=== PATIENT | male | born 1970 | race Caucasian/White ===

== ENCOUNTER 2017-11-15 12:42 | Emergency (ER) | payer BC ==
[2017-11-15 13:07] VITALS: BP 143/73; PULSE 82; RESP 18; TEMP 96.6
[2017-11-15] MEDS ORDERED: DIPH,PERTUS(ACELL)TETVAC-LF 0.5 ML VIAL IM ONE (13:10)
--- NOTE | 2017-11-15 13:23 | ED ---
General Adult HPI - General Chief complaint: Wound/Laceration Stated complaint: Thumb Lac/Injury Time Seen by Provider: 11/15/17 13:07 Source: patient, RN notes reviewed Mode of arrival: ambulatory Limitations: no limitations - History of Present Illness Initial comments: 47-year-old male presents to the emergency department with a chief complaint of right thumb injury. He got his finger caught in a wood splitter. He believes his tetanus was possibly greater than 5 years ago he is unsure of the exact time. He states that he did not lose consciousness and there is no other injuries with this. He denies any nausea or vomiting associated with this. He denies any fever or chills. He states that he is having some coolness to that digit. There is been no other symptoms and the patient at this time. He denies any injury to thumb in the past. Patient denies any recent fever, chills , shortness of breath, chest pain, back pain, abdominal pain, nausea vomiting, numbness or tingling, dysuria or hematuria, constipation or diarrhea, headaches or visual changes, or any other current symptoms. - Related Data Home Medications Medication Instructions Recorded Confirmed Ibuprofen [Advil] 400 mg PO Q6HR PRN 10/31/15 08/03/16 Previous Rx's Medication Instructions Recorded Hydrocodone/Acetaminophen [[place] 1 each PO Q6HR PRN #10 tab 08/04/16 5-325] Sulfamethoxazole/Trimethoprim 1 each PO Q12H 14 Days tab 08/04/16 [Bactrim DS 800-160 mg] Allergies Allergy/AdvReac Type Severity Reaction Status Date / Time No Known Allergies Allergy Verified 08/03/16 23:35 Review of Systems ROS Statement: Those systems with pertinent positive or pertinent negative responses have been documented in the HPI. ROS Other: All systems not noted in ROS Statement are negative. Past Medical History Past Medical History: No Reported History Additional Past Medical History / Comment(s): CONSTIPATION. UMBILICAL HERNIA. History of Any Multi-Drug Resistant Organisms: None Reported Additional Past Surgical History / Comment(s): FACIAL SURGERY D/T ACCIDENT. EXC WISDOM TEETH. right arm Past Anesthesia/Blood Transfusion Reactions: No Reported Reaction Past Psychological History: No Psychological Hx Reported Smoking Status: Current every day smoker Past Alcohol Use History: None Reported Past Drug Use History: None Reported - Past Family History Mother Family Medical History: No Reported History General Exam - General Exam Comments Initial Comments: General: The patient is awake and alert, in no distress, and does not appear acutely ill. Neck: The neck is supple, there is no tenderness. Cardiovascular: There is a regular rate and rhythm. No murmur, rub or gallop is appreciated. Respiratory: Lungs are clear to auscultation, respirations are non-labored, breath sounds are equal. No wheezes, stridor, rales, or rhonchi. Musculoskeletal: Sensation intact with 2+ pulses throughout the right upper extremity. Fund motion of the right wrist. Frontal motion of digits 2 through 5. Patient does have pain with range of motion of digit 1 with what appears to be a laceration to the palmar aspect. Sensation is intact. The digit is warm to touch. Neurological: CN II-XII intact, There are no obvious motor or sensory deficits. Coordination appears grossly intact. Speech is normal. Skin: Skin is warm and dry and no rashes or lesions are noted. Psychiatric: Normal mood and affect. Limitations: no limitations Course Vital Signs 11/15/17 13:01 Temperature 96.6 F L Pulse Rate 82 Respiratory 18 Rate Blood Pressure 143/73 O2 Sat by Pulse 97 Oximetry Medical Decision Making - Medical Decision Making 47-year-old male presents for a injury to the right thumb due to a long splinter. At this time patient does appear to have right thumb abrasion however there is no deep laceration needing stitches. This time x-rays reviewed and negative as well. This time we discussed Motrin Tylenol ice. We discussed return for hours follow-up and all care. Patient stated she understood and she is agreement with this plan. All questions have been answered. She will be discharged. - Radiology Data Radiology results: report reviewed, image reviewed Disposition Clinical Impression: Abrasion of right thumb, Contusion of right thumb Disposition: HOME SELF-CARE Condition: Stable Instructions: Abrasion (ED), Contusion in Adults (ED) Additional Instructions: Please use medication as discussed. Please follow up with family doctor if symptoms have not improved over the next two days. Please return to the emergency room if your symptoms increase or worsen or for any other concerns. Referrals: Abdullahi Douglass MD [Primary Care Provider] - 1-2 days Time of Disposition: 13:46
--- NOTE | 2017-11-15 13:34 | XR ---
EXAMINATION TYPE: XR finger RT , 3 VIEWS DATE OF EXAM ORDERED: 11/15/2017 HISTORY: Pain following trauma. COMPARISON: None. FINDINGS: No fracture, dislocation or other acute osseous lesion is seen. IMPRESSION: NO ACUTE OSSEOUS LESION.
== END 2017-11-15 13:49 | disposition home or self-care (01) ==
LOC: EC 12:42
DX: S60.011A Contusion of right thumb without damage to nail, initial encounter (principal); Z23 Encounter for immunization; F17.200 Nicotine dependence, unspecified, uncomplicated; W45.8XXA Other foreign body or object entering through skin, initial encounter; Y92.009 Unspecified place in unspecified non-institutional (private) residence as the place of occurrence of the external cause
CPT/HCPCS: 90471; 90715; 99283

== ENCOUNTER 2019-01-23 20:56 | Emergency (ER) | payer BC ==
[2019-01-23] MEDS ORDERED: methylPREDNISolone SOD SUCCI 125 MG/2 ML VIAL IM ONE (21:40)
[2019-01-23] MEDS ORDERED: ALBUTEROL NEBULIZED 2.5 MG/3 ML INHALATION STA (21:40)
[2019-01-23] MEDS ORDERED: IPRATROPIUM 0.5 MG/2.5 ML NEBU INHALATION STA (21:40)
[2019-01-23] MEDS ORDERED: guaiFENesin-DM 600/30MG 1 EACH TAB.ER.12H PO STA (21:41)
--- NOTE | 2019-01-23 22:24 | XR ---
EXAM: XR Chest, 2 Views CLINICAL HISTORY: ITS.REASON XR Reason: Pain TECHNIQUE: Frontal and lateral views of the chest. COMPARISON: 11/01/15. FINDINGS: Lungs: Mild perihilar/infrahilar opacities. Pleural space: Unremarkable. No pneumothorax. Heart: Unremarkable. Mediastinum: Unremarkable. Bones/joints: No acute fracture. IMPRESSION: Mild perihilar/infrahilar opacities. Correlate clinically regarding inflammatory/infectious process.
[2019-01-23] MEDS ORDERED: AZITHROMYCIN 500 MG TAB PO STA (22:53)
--- NOTE | 2019-01-23 22:55 | ED ---
URI HPI - General Chief Complaint: Upper Respiratory Infection Stated Complaint: PHILIPPE Time Seen by Provider: 01/23/19 21:25 Source: patient Mode of arrival: ambulatory Limitations: no limitations - History of Present Illness Initial Comments: 49-year-old male patient presents to the emergency department today for evaluation of cough, nasal congestion, and shortness of breath. Patient states he's been sick for the last 2-3 days with symptoms. States that today his breathing became more labored and tight. States he has been wheezing. He doesn't to being a smoker. States he has had intermittent fevers over the last couple of days. Denies any sputum production with this cough. Denies any rash or ear pain. Patient states he did not receive influenza vaccination. Denies taking any medication for his symptoms. Patient denies any recent rash, abdominal pain, nausea, vomiting, diarrhea, constipation, back pain, numbness, tingling, dizziness, weakness, hematuria, dysuria, urinary urgency, urinary frequency, headache, visual changes, or any other complaints. - Related Data Home Medications Medication Instructions Recorded Confirmed Ibuprofen [Advil] 400 mg PO Q6HR PRN 10/31/08/03/16 Previous Rx's Medication Instructions Recorded Hydrocodone/Acetaminophen [[place] 1 each PO Q6HR PRN #10 tab 08/04/16 5-325] Sulfamethoxazole/Trimethoprim 1 each PO Q12H 14 Days tab 08/04/16 [Bactrim DS 800-160 mg] Albuterol Sulfate [Proair Hfa] 1 - 2 puff INHALATION Q6HR PRN #1 01/23/19 inhaler Azithromycin [Zithromax Z-pack] 0 mg PO DIRECTED #6 tab 01/23/19 guaiFENesin-DM 600/30MG [Mucinex 1 each PO Q12HR #10 tab.er.12h 01/23/19 Dm] predniSONE 50 mg PO DAILY #5 tablet 01/23/19 Allergies Allergy/AdvReac Type Severity Reaction Status Date / Time No Known Allergies Allergy Verified 01/23/19 21:11 Review of Systems ROS Statement: Those systems with pertinent positive or pertinent negative responses have been documented in the HPI. ROS Other: All systems not noted in ROS Statement are negative. Past Medical History Past Medical History: No Reported History Additional Past Medical History / Comment(s): CONSTIPATION. UMBILICAL HERNIA. History of Any Multi-Drug Resistant Organisms: None Reported Additional Past Surgical History / Comment(s): FACIAL SURGERY D/T ACCIDENT. EXC WISDOM TEETH. right arm Past Anesthesia/Blood Transfusion Reactions: No Reported Reaction Past Psychological History: No Psychological Hx Reported Smoking Status: Current every day smoker Past Alcohol Use History: None Reported Past Drug Use History: None Reported - Past Family History Mother Family Medical History: No Reported History General Exam Limitations: no limitations General appearance: alert, in no apparent distress, other (Physical well- developed, well-nourished adult male patient in no acute distress. Vital signs upon presentation are temperature 98.5F, pulse 86, respirations 18, blood pressure 134/94, pulse ox 98% on room air.) Eye exam: Present: normal appearance, PERRL, EOMI. Absent: scleral icterus, conjunctival injection, periorbital swelling ENT exam: Present: normal exam, normal oropharynx, mucous membranes moist Respiratory exam: Present: wheezes (Diffuse expiratory wheezing in the posterior lung ford). Absent: normal lung sounds bilaterally, respiratory distress, rales, rhonchi, stridor, accessory muscle use Cardiovascular Exam: Present: regular rate, normal rhythm, normal heart sounds. Absent: systolic murmur, diastolic murmur, rubs, gallop, clicks GI/Abdominal exam: Present: soft, normal bowel sounds. Absent: distended, tenderness, guarding, rebound, rigid Neurological exam: Present: alert, oriented X3, CN II-XII intact Psychiatric exam: Present: normal affect, normal mood Skin exam: Present: warm, dry, intact, normal color. Absent: rash Course Vital Signs 01/23/19 01/23/19 01/23/19 21:08 21:10 22:16 Temperature 98.5 F Pulse Rate 86 81 Respiratory 18 20 18 Rate Blood Pressure 134/94 O2 Sat by Pulse 98 Oximetry 01/23/19 01/23/19 01/23/19 22:31 22:41 22:53 Temperature Pulse Rate 89 90 101 H Respiratory 18 18 20 Rate Blood Pressure O2 Sat by Pulse Oximetry 01/23/19 23:28 Temperature 97.0 F L Pulse Rate 91 Respiratory 16 Rate Blood Pressure 145/81 O2 Sat by Pulse 95 Oximetry Medical Decision Making - Medical Decision Making 49-year-old male patient presents to the emergency department today for evaluation of cough, shortness of breath, nasal congestion. Physical examination did reveal diffuse expiratory wheezing in the posterior lung ford. Vital signs are normal with good oxygen saturation. Chest x-ray showed infrahilar opacities in recommended clinical correlation for inflammatory versus infectious process. Patient does report intermittent fevers and is negative for influenza so we will lean towards infectious this case. Patient will be started on azithromycin. We will give prescription for Pro Air inhaler, steroids, and Mucinex DM. He is instructed to follow-up for recheck with his primary care physician in one to 2 days. Return parameters were discussed in detail. He verbalizes understanding and agrees with this plan. - Lab Data Lab Results 01/23/19 Range/Units 21:58 Influenza Type A RNA Not Detected (Not Detectd) Influenza Type B (PCR) Not Detected (Not Detectd) - Radiology Data Radiology results: report reviewed, image reviewed Two-view x-ray of the chest is obtained. Report was reviewed in its entirety. Impression by Dr. Borja shows mild perihilar/infrahilar opacities. Correlate clinically regarding inflammatory versus infectious process. Disposition Clinical Impression: Pneumonia, Acute bronchitis Disposition: HOME SELF-CARE Condition: Good Instructions (If sedation given, give patient instructions): Acute Bronchitis (ED), Pneumonia (ED) Additional Instructions: Take medications as directed. Complete and about a prescription and full. Return to the emergency department immediately for any new, worsening, or concerning symptoms. Prescriptions: guaiFENesin-DM 600/30MG [Mucinex Dm] 1 each PO Q12HR #10 tab.er.12h predniSONE 50 mg PO DAILY #5 tablet Albuterol Sulfate [Proair Hfa] 1 - 2 puff INHALATION Q6HR PRN #1 inhaler PRN Reason: Shortness Of Breath Azithromycin [Zithromax Z-pack] 0 mg PO DIRECTED #6 tab Is patient prescribed a controlled substance at d/c from ED?: No Referrals: Abdullahi Douglass MD [Primary Care Provider] - 1-2 days Time of Disposition: 22:55
[2019-01-23 23:29] VITALS: BP 145/81; PULSE 91; RESP 16; TEMP 97
== END 2019-01-23 23:33 | disposition home or self-care (01) ==
LOC: EC 20:56
DX: J18.9 Pneumonia, unspecified organism (principal); J20.9 Acute bronchitis, unspecified; F17.200 Nicotine dependence, unspecified, uncomplicated
CPT/HCPCS: 94644; 87502; 71046; 99285; 96372; J2930

== ENCOUNTER 2020-05-09 21:59 | Emergency (ER) | payer BC ==
[2020-05-09 22:05] VITALS: RESP 18
[2020-05-09] MEDS ORDERED: SODIUM CHLORIDE 0.9% 1,000 ML IV ONE (22:24)
[2020-05-09] MEDS ORDERED: MORPHINE SULFATE 4 MG/ML SYRINGE IV STA (22:24)
--- NOTE | 2020-05-09 22:32 | ED ---
General Adult HPI - General Chief complaint: Abdominal Pain Stated complaint: Abdominal pain Time Seen by Provider: 05/09/20 22:08 Source: patient, RN notes reviewed, old records reviewed Mode of arrival: ambulatory Limitations: no limitations - History of Present Illness Initial comments: 50-year-old male patient no pertinent past medical history presents ED for 2 complaining of abdominal pain. Patient reports that for the last 2 days patient has been having worsening lower quadrant abdominal pain. Patient reports his right lower quadrant suprapubic and left lower quadrant region. States that he worked all day today. The pain has been worse. Denies any nausea or vomiting. Denies chest pain shortness of breath. Denies any other complaints. Systemic: Pt denies fatigue, fever/chills, rash. Pt denies weakness, night sweats, weight loss. Neuro: Pt denies headache, visual disturbances, syncope or pre-syncope. HEENT: Pt denies ocular discharge or irritation, otalgia, rhinorrhea, pharyngitis or notable lymphadenopathy. Cardiopulmonary: Pt denies chest pain, SOB, heart palpitations, dyspnea on exertion. Abdominal/GI: Pt denies n/v/d. : Pt denies dysuria, burning w/ urination, frequency/urgency. Denies new onset urinary or bowel incontinence. MSK: Pt denies myalgia, loss of strength or function in extremities. Neuro: Pt denies new onset weakness, paresthesias. - Related Data Previous Rx's Medication Instructions Recorded Amoxicillin/Potassium Clav 1 each PO Q12HR 20 Days #20 tab 05/09/20 [Augmentin 875-125 Tablet] Allergies Allergy/AdvReac Type Severity Reaction Status Date / Time No Known Allergies Allergy Verified 05/09/20 22:40 Review of Systems ROS Statement: Those systems with pertinent positive or pertinent negative responses have been documented in the HPI. ROS Other: All systems not noted in ROS Statement are negative. Past Medical History Past Medical History: No Reported History Additional Past Medical History / Comment(s): CONSTIPATION. UMBILICAL HERNIA. History of Any Multi-Drug Resistant Organisms: None Reported Additional Past Surgical History / Comment(s): FACIAL SURGERY D/T ACCIDENT. EXC WISDOM TEETH. right arm, lipoma Past Anesthesia/Blood Transfusion Reactions: No Reported Reaction Past Psychological History: No Psychological Hx Reported Smoking Status: Current every day smoker Past Alcohol Use History: None Reported Past Drug Use History: None Reported - Past Family History Mother Family Medical History: No Reported History General Exam - General Exam Comments Initial Comments: Constitutional: NAD, AOX3, Pt has pleasant affect. HEENT: NC/AT, trachea midline, neck supple. External ears appear normal, without discharge. Mucous membranes moist. EOM intact. There is no scleral icterus. No pallor noted. Cardiopulmonary: RRR, no murmurs, rubs or gallops, no JVD noted. Lungs CTAB in anterior and posterior ford. No peripheral edema. Abdominal exam: Abdomen soft and non-distended. Abdomen moderately tender to palpation in LLQ, suprapubic, RLQ region. Bowel sounds active in LLQ. No hepatosplenomegaly. No ecchymosis Neuro: CN II-XII grossly intact. No nuchal rigidity. No raccon eyes, no alvarez sign. MSK: Full active ROM in upper and lower extremities, 5/5 stregnth. Limitations: no limitations Course Vital Signs 05/09/20 22:02 Temperature 98.6 F Pulse Rate 84 Respiratory 18 Rate Blood Pressure 132/75 O2 Sat by Pulse 97 Oximetry Medical Decision Making - Medical Decision Making 50-year-old male patient received chief complaint 2 days of lower quadrant abdominal pain. Patient also under stable, afebrile. Physical exam doesn't display suprapubic right lower quadrant and left lower quadrant abdominal pain. Patient left investigation at the display leukocytosis of 14.8. CT abdomen and pelvis doesn display sigmoid diverticulitis, uncomplicated. Patient's symptoms are improved. Tolerating oral intake. Patient initiated on Augmentin will follow-up with his primary care provider with strict return precautions. Case discussed with Dr. Lovell. - Lab Data Result diagrams: 05/09/20 22:25 05/09/20 22:25 Lab Results 05/09/20 05/09/20 05/09/20 Range/Units 22:25 22:25 22:25 WBC 14.8 H (3.8-10.6) k/uL RBC 4.38 (4.30-5.90) m/uL Hgb 13.2 (13.0-17.5) gm/dL Hct 41.4 (39.0-53.0) % MCV 94.5 (80.0-100.0) fL MCH 30.2 (25.0-35.0) pg MCHC 32.0 (31.0-37.0) g/dL RDW 13.7 (11.5-15.5) % Plt Count 256 (150-450) k/uL Neutrophils % 67 % Lymphocytes % 20 % Monocytes % 7 % Eosinophils % 5 % Basophils % 1 % Neutrophils # 9.9 H (1.3-7.7) k/uL Lymphocytes # 2.9 (1.0-4.8) k/uL Monocytes # 1.0 (0-1.0) k/uL Eosinophils # 0.7 (0-0.7) k/uL Basophils # 0.1 (0-0.2) k/uL Sodium 138 (137-145) mmol/L Potassium 4.3 (3.5-5.1) mmol/L Chloride 109 H (98-107) mmol/L Carbon Dioxide 22 (22-30) mmol/L Anion Gap 7 mmol/L BUN 12 (9-20) mg/dL Creatinine 0.61 L (0.66-1.25) mg/dL Est GFR (CKD-EPI)AfAm >90 (>60 ml/min/1.73 sqM) Est GFR (CKD-EPI)NonAf >90 (>60 ml/min/1.73 sqM) Glucose 119 H (74-99) mg/dL Plasma Lactic Acid Prabhakar 1.4 (0.7-2.0) mmol/L Calcium 9.0 (8.4-10.2) mg/dL Total Bilirubin 0.3 (0.2-1.3) mg/dL AST 28 (17-59) U/L ALT 43 (4-49) U/L Alkaline Phosphatase 78 (38-126) U/L Total Protein 6.4 (6.3-8.2) g/dL Albumin 3.7 (3.5-5.0) g/dL Lipase 86 (23-300) U/L Disposition Clinical Impression: Acute diverticulitis, Sigmoid diverticulitis Disposition: HOME SELF-CARE Condition: Stable Instructions (If sedation given, give patient instructions): Diverticulitis (ED) Additional Instructions: Follow-up with primary care provider tomorrow. Take antibiotics as directed. Return to ER if condition worsens in any way. Prescriptions: Amoxicillin/Potassium Clav [Augmentin 875-125 Tablet] 1 each PO Q12HR 20 Days #20 tab Is patient prescribed a controlled substance at d/c from ED?: No Referrals: Abdullahi Douglass MD [Primary Care Provider] - 1-2 days
[2020-05-09 22:36] LABS: Basophils # (A) 0.1 k/uL (0-0.2); Basophils % (A) 1 %; Eosinophils # (A) 0.7 k/uL (0-0.7); Eosinophils % (A) 5 %; HCT 41.4 % (39.0-53.0); HGB 13.2 gm/dL (13.0-17.5); Lymphocytes # (A) 2.9 k/uL (1.0-4.8); Lymphocytes % (A) 20 %; MCH 30.2 pg (25.0-35.0); MCV 94.5 fL (80.0-100.0); Mean Platelet Volume 7.5; Monocytes % (A) 7 %; Neutrophils # (A) 9.9 k/uL (1.3-7.7); Neutrophils % (A) 67 %; Platelet Count 256 k/uL (150-450); RBC 4.38 m/uL (4.30-5.90); RDW 13.7 % (11.5-15.5); WBC 14.8 k/uL (3.8-10.6)
[2020-05-09 22:41] LABS: ALT 43 U/L (4-49); AST 28 U/L (17-59); African American GFR (CKD) >90 (>60 ml/min/1.73 sqM); Albumin 3.7 g/dL (3.5-5.0); Alkaline Phosphatase 78 U/L (38-126); Anion Gap 7 mmol/L; Blood Urea Nitrogen 12 mg/dL (9-20); Carbon Dioxide 22 mmol/L (22-30); Chloride 109 mmol/L (98-107); Glucose 119 mg/dL (74-99); Non-African American GFR(CKD) >90 (>60 ml/min/1.73 sqM); Potassium 4.3 mmol/L (3.5-5.1); Sodium 138 mmol/L (137-145); Total Bilirubin 0.3 mg/dL (0.2-1.3); Total Protein 6.4 g/dL (6.3-8.2)
--- NOTE | 2020-05-09 23:06 | CT ---
EXAMINATION TYPE: CT abdomen pelvis w con DATE OF EXAM: 05/09/2020 COMPARISON: 11/01/2015 HISTORY: epigastric pain. hx of hernia sx CT DLP: 1209.6 mGycm Automated exposure control for dose reduction was used. CONTRAST: Performed with IV Contrast, patient injected with 100 mL of Isovue 300. Images were obtained from the diaphragm to the floor the pelvis with IV contrast. There is 1 cm noncalcified nodule in the anterior right upper lobe. Lung bases are clear. There is no pleural effusion. Heart size is normal. There is no pericardial effusion. Liver spleen stomach pancreas gallbladder appear normal. Bile ducts are not dilated. Stomach is intac t. There is no adrenal mass. Kidneys show satisfactory contrast opacification. There is no hydronephrosi s. There is normal excretion on the delayed images. There is no retroperitoneal adenopathy. Bladder distends smoothly. There is no inguinal hernia. There is no free fluid in the pelvis. Appendi x is posterior and appears normal. There is wall thickening through the mid sigmoid colon with numerous diverticula. There is pericolic fat stranding. The small bowel appears normal. There is no free air. There is no ascites. Lumbar vert ebra have fairly normal spacing and alignment. Bony pelvis is intact. There is no compression fractur e. IMPRESSION: There is sigmoid diverticulitis which is a change compared to old exam. No drainable fluid collection . Normal appendix.
[2020-05-09] MEDS ORDERED: AMOXIC-POT CLAV 875-125MG 1 EACH TAB PO STA (23:08)
[2020-05-09] MEDS ORDERED: AMOXIC-POT CLAV 875MG STARTER PACK 2 TAB BTL PO STA (23:08)
[2020-05-10 01:06] VITALS: BP 145/82; PULSE 82; TEMP 98
== END 2020-05-09 23:35 | disposition home or self-care (01) ==
LOC: EC 21:59
DX: K57.32 Diverticulitis of large intestine without perforation or abscess without bleeding (principal); D72.829 Elevated white blood cell count, unspecified; F17.200 Nicotine dependence, unspecified, uncomplicated; Z87.19 Personal history of other diseases of the digestive system
CPT/HCPCS: 80053; 83605; 83690; 85025; 74177; 99284; 96374; 96361; J2270; Q9967

== ENCOUNTER 2021-06-20 18:42 | Emergency (ER) | payer BC ==
[2021-06-20 19:04] VITALS: RESP 18; TEMP 98.2
[2021-06-20] MEDS ORDERED: SODIUM CHLORIDE 0.9% 1,000 ML IV STA (19:21)
[2021-06-20] MEDS ORDERED: MORPHINE SULFATE 4 MG/ML SYRINGE IV STA (19:21)
[2021-06-20] MEDS ORDERED: ONDANSETRON 4 MG/2 ML VIAL IVP STA (19:21)
[2021-06-20 19:52] LABS: Basophils # (A) 0.1 k/uL (0-0.2); Basophils % (A) 1 %; Eosinophils # (A) 0.7 k/uL (0-0.7); Eosinophils % (A) 6 %; HCT 44.2 % (39.0-53.0); HGB 14.4 gm/dL (13.0-17.5); Lymphocytes # (A) 2.9 k/uL (1.0-4.8); Lymphocytes % (A) 24 %; MCH 31.4 pg (25.0-35.0); MCHC 32.6 g/dL (31.0-37.0); MCV 96.4 fL (80.0-100.0); Mean Platelet Volume 7.8; Monocytes # (A) 0.6 k/uL (0-1.0); Monocytes % (A) 5 %; Neutrophils # (A) 7.4 k/uL (1.3-7.7); Neutrophils % (A) 63 %; Platelet Count 265 k/uL (150-450); RBC 4.59 m/uL (4.30-5.90); RDW 13.8 % (11.5-15.5); WBC 11.8 k/uL (3.8-10.6)
[2021-06-20 20:02] LABS: ALT 25 U/L (4-49); AST 30 U/L (17-59); African American GFR (CKD) >90 (>60 ml/min/1.73 sqM); Albumin 4.4 g/dL (3.5-5.0); Alkaline Phosphatase 77 U/L (38-126); Amylase 69 U/L (30-110); Anion Gap 8 mmol/L; Blood Urea Nitrogen 22 mg/dL (9-20); Calcium 9.7 mg/dL (8.4-10.2); Carbon Dioxide 22 mmol/L (22-30); Chloride 112 mmol/L (98-107); Glucose 124 mg/dL (74-99); Lipase 48 U/L (23-300); Non-African American GFR(CKD) >90 (>60 ml/min/1.73 sqM); Potassium 4.5 mmol/L (3.5-5.1); Sodium 142 mmol/L (137-145); Total Bilirubin 0.3 mg/dL (0.2-1.3)
[2021-06-20] MEDS ORDERED: HYDROmorphone 1 MG/ML 1 ML SYRINGE IVP STA (20:16)
[2021-06-20 20:18] LABS: Appearance,Urine Clear (Clear); Bilirubin,Urine Negative (Negative); Blood,Urine Small (Negative); Calcium Oxalate Crystals,Urine Occasional /hpf; Color,Urine Yellow; Glucose,Urine (UA) Negative (Negative); Ketones,Urine 1+ (Negative); Leukocyte Esterase,Urine Negative (Negative); Mucus,Urine Few /hpf; Nitrite,Urine Negative (Negative); PH, Urine 5.5 (5.0-8.0); Protein,Urine Trace (Negative); RBC,Urine 4 /hpf (0-5); Specific Gravity,Urine 1.037 (1.001-1.035); Squamous Epithelial Cell,Urine <1 /hpf (0-4); WBC,Urine 1 /hpf (0-5)
--- NOTE | 2021-06-20 20:53 | CT ---
EXAMINATION TYPE: CT abdomen pelvis w con DATE OF EXAM: 06/20/2021 COMPARISON: 05/09/2020. HISTORY: Left lower quadrant and left flank pain with dysuria. CT DLP: 1015.8 mGycm Automated exposure control for dose reduction was used. TECHNIQUE: Helical acquisition of images was performed from the lung bases through the pelvis. CONTRAST: Performed without Oral Contrast and with IV Contrast, patient injected with 100 mL of Isovue 300. FINDINGS: LUNG BASES: No significant abnormality is appreciated. LIVER/GB: No significant abnormality is appreciated. PANCREAS: No significant abnormality is seen. SPLEEN: No significant abnormality is seen. ADRENALS: No significant abnormality is seen. KIDNEYS: Mild left hydroureteronephrosis without obstructing calculus or nephrolithiasis. No right hy dronephrosis or nephrolithiasis FREE AIR: No free air is visualized. RETROPERITONEAL ADENOPATHY: None visualized REPRODUCTIVE ORGANS: No significant abnormality is seen URINARY BLADDER: Partially decompressed, otherwise unremarkable. PELVIC ADENOPATHY: None visualized. OSSEOUS STRUCTURES: No significant abnormality is seen. BOWEL: No acute abnormality is seen. Colonic diverticulosis without acute diverticulitis. OTHER: None IMPRESSION: MILD LEFT HYDROURETERONEPHROSIS WITHOUT OBSTRUCTING CALCULUS. FINDINGS MAY RELATE TO RECENTLY PASSED STONE.
--- NOTE | 2021-06-20 21:02 | ED ---
Abdominal Pain HPI - General Chief Complaint: Abdominal Pain Stated Complaint: Abdominal Pain Time Seen by Provider: 06/20/21 19:08 Source: patient, RN notes reviewed Mode of arrival: ambulatory Limitations: no limitations - History of Present Illness Initial Comments: Patient is a 51-year-old male that presents to the emergency department complaining of left lower quadrant pain with radiation to his back. He denied any history of kidney stones. He noted that the pain started approximately 1-2 hours prior to arrival. He notes that it was a 10 out of 10 with no relief. Patient did appear to be in moderate pain and discomfort while sitting up in bed during the exam interview. He noted that nothing really made the pain better. He noted that movement made the pain worse. Patient was otherwise a well- appearing 51-year-old male here he denied any chest pain shortness of breath headache nausea vomiting diarrhea constipation fever fatigue chills. - Related Data Previous Rx's Medication Instructions Recorded Amoxicillin/Potassium Clav 1 each PO Q12HR 20 Days #20 tab 05/09/20 [Augmentin 875-125 Tablet] Allergies Allergy/AdvReac Type Severity Reaction Status Date / Time No Known Allergies Allergy Verified 06/20/21 19:04 Review of Systems ROS Statement: Those systems with pertinent positive or pertinent negative responses have been documented in the HPI. ROS Other: All systems not noted in ROS Statement are negative. Past Medical History Past Medical History: No Reported History Additional Past Medical History / Comment(s): CONSTIPATION. UMBILICAL HERNIA. History of Any Multi-Drug Resistant Organisms: MRSA Date of last positivie culture/infection: 08/14/20 MDRO Source:: MRSA BUTTOCK Additional Past Surgical History / Comment(s): FACIAL SURGERY D/T ACCIDENT. EXC WISDOM TEETH. right arm, lipoma Past Anesthesia/Blood Transfusion Reactions: No Reported Reaction Past Psychological History: No Psychological Hx Reported Smoking Status: Current every day smoker Past Alcohol Use History: Occasional Past Drug Use History: None Reported - Past Family History Mother Family Medical History: No Reported History General Exam Limitations: no limitations General appearance: alert, in no apparent distress Head exam: Present: atraumatic, normocephalic, normal inspection Eye exam: Present: normal appearance, PERRL, EOMI. Absent: scleral icterus, conjunctival injection, periorbital swelling Neck exam: Present: normal inspection Respiratory exam: Present: normal lung sounds bilaterally. Absent: respiratory distress, wheezes, rales, rhonchi, stridor Cardiovascular Exam: Present: regular rate, normal rhythm, normal heart sounds. Absent: systolic murmur, diastolic murmur, rubs, gallop, clicks GI/Abdominal exam: Present: soft, tenderness (Left lower quadrant and flank.), normal bowel sounds. Absent: distended, guarding, rebound, rigid Extremities exam: Present: normal inspection, full ROM, normal capillary refill. Absent: tenderness, pedal edema, joint swelling, calf tenderness Neurological exam: Present: alert, oriented X3 Psychiatric exam: Present: normal affect, normal mood Skin exam: Present: warm, dry, intact, normal color. Absent: rash Course Vital Signs 06/20/21 06/20/21 19:00 20:25 Temperature 98.2 F Pulse Rate 65 68 Respiratory 18 18 Rate Blood Pressure 167/79 167/110 O2 Sat by Pulse 97 98 Oximetry Medical Decision Making - Medical Decision Making 51-year-old male complaining of left lower quadrant/left flank pain. Labs, 4 mg morphine, CT the abdomen and pelvis, 1 L normal saline, 4 mg of Zofran ordered. Labs show a mild leukocytosis at 11.8, urine shows occasional calcium oxalate crystals. CT shows mild hydroureteral nephrosis consistent with the passing of a kidney stone. Case discussed with Dr. Marquez, patient can discharge home with follow-up to primary care and urologist as needed. - Lab Data Result diagrams: 06/20/21 19:40 06/20/21 19:40 Lab Results 06/20/21 06/20/21 06/20/21 Range/Units 19:40 19:40 19:40 WBC 11.8 H (3.8-10.6) k/uL RBC 4.59 (4.30-5.90) m/uL Hgb 14.4 (13.0-17.5) gm/dL Hct 44.2 (39.0-53.0) % MCV 96.4 (80.0-100.0) fL MCH 31.4 (25.0-35.0) pg MCHC 32.6 (31.0-37.0) g/dL RDW 13.8 (11.5-15.5) % Plt Count 265 (150-450) k/uL MPV 7.8 Neutrophils % 63 % Lymphocytes % 24 % Monocytes % 5 % Eosinophils % 6 % Basophils % 1 % Neutrophils # 7.4 (1.3-7.7) k/uL Lymphocytes # 2.9 (1.0-4.8) k/uL Monocytes # 0.6 (0-1.0) k/uL Eosinophils # 0.7 (0-0.7) k/uL Basophils # 0.1 (0-0.2) k/uL Sodium 142 (137-145) mmol/L Potassium 4.5 (3.5-5.1) mmol/L Chloride 112 H (98-107) mmol/L Carbon Dioxide 22 (22-30) mmol/L Anion Gap 8 mmol/L BUN 22 H (9-20) mg/dL Creatinine 0.85 (0.66-1.25) mg/dL Est GFR (CKD-EPI)AfAm >90 (>60 ml/min/1.73 sqM) Est GFR (CKD-EPI)NonAf >90 (>60 ml/min/1.73 sqM) Glucose 124 H (74-99) mg/dL Calcium 9.7 (8.4-10.2) mg/dL Total Bilirubin 0.3 (0.2-1.3) mg/dL AST 30 (17-59) U/L ALT 25 (4-49) U/L Alkaline Phosphatase 77 (38-126) U/L Total Protein 7.0 (6.3-8.2) g/dL Albumin 4.4 (3.5-5.0) g/dL Amylase 69 (30-110) U/L Lipase 48 (23-300) U/L Urine Color Yellow Urine Appearance Clear (Clear) Urine pH 5.5 (5.0-8.0) Ur Specific [place] 1.037 H (1.001-1.035) Urine Protein Trace H (Negative) Urine Glucose (UA) Negative (Negative) Urine Ketones 1+ H (Negative) Urine Blood Small H (Negative) Urine Nitrite Negative (Negative) Urine Bilirubin Negative (Negative) Urine Urobilinogen 2.0 (<2.0) mg/dL Ur Leukocyte Esterase Negative (Negative) Urine RBC 4 (0-5) /hpf Urine WBC 1 (0-5) /hpf Ur Squamous Epith Cells <1 (0-4) /hpf Calcium Oxalate Crystal Occasional H (None) /hpf Urine Mucus Few H (None) /hpf - Radiology Data Radiology results: report reviewed, image reviewed CT the abdomen and pelvis: Mild left hydroureteronephrosis without obstructing calculus findings may relate to a recently passed stone. Disposition Clinical Impression: Kidney stone on left side Disposition: HOME SELF-CARE Condition: Stable Instructions (If sedation given, give patient instructions): Kidney Stones (ED) Additional Instructions: Please return to the Emergency Department if symptoms worsen or any other concerns. Follow-up with primary care in the next 1-2 days. Increase oral fluids. Take Motrin [id number] for pain. Is patient prescribed a controlled substance at d/c from ED?: No Referrals: Abdullahi Douglass MD [Primary Care Provider] - 1-2 days Johnny Morrison MD [STAFF PHYSICIAN] - 1-2 days Time of Disposition: 21:09
[2021-06-20 21:22] VITALS: BP 141/101; PULSE 82
== END 2021-06-20 21:26 | disposition home or self-care (01) ==
LOC: EC 18:42
DX: N13.2 Hydronephrosis with renal and ureteral calculous obstruction (principal); D72.829 Elevated white blood cell count, unspecified; F17.200 Nicotine dependence, unspecified, uncomplicated
CPT/HCPCS: 36415; 80053; 82150; 83690; 85025; 81001; 74177; 99284; 96374; 96375; 96361; J2270; J2405; J1170; Q9967

== ENCOUNTER 2021-08-16 11:24 | Inpatient (IN) | payer BC, OTHER ==
[2021-08-16] MEDS ORDERED: DIPH,PERTUS(ACELL)TETVAC-LF 0.5 ML VIAL IM ONE (11:29)
[2021-08-16] MEDS ORDERED: HYDROmorphone 1 MG/ML 1 ML SYRINGE IVP STA ×3 (11:29→16:26)
[2021-08-16 11:38] LABS: Glucose,Whole Blood 127 mg/dL (75-99)
--- NOTE | 2021-08-16 11:46 | ED ---
General Adult HPI - General Stated complaint: hand injury Source: patient, EMS Mode of arrival: EMS Limitations: no limitations - History of Present Illness Initial comments: Patient is a pleasant 81-year-old male presenting to the emergency department following an injury. Patient was at work. Patient was near an excavator and his hand got stuck between a box. Right hand was crushed. Patient denies any other area of injury. Patient is right-hand dominant. No head injury or loss of consciousness. No neck or back pain. No chest pain or dyspnea. No abdominal pain. Patient is ambulatory. Unclear last tetanus immunization. Patient does not take blood thinners. Patient has severe discomfort at this time. Patient did have tourniquet placed mid right forearm. - Related Data Previous Rx's Medication Instructions Recorded Amoxicillin/Potassium Clav 1 each PO Q12HR 20 Days #20 tab 05/09/20 [Augmentin 875-125 Tablet] Allergies Allergy/AdvReac Type Severity Reaction Status Date / Time No Known Allergies Allergy Verified 06/20/21 19:04 Review of Systems ROS Statement: Those systems with pertinent positive or pertinent negative responses have been documented in the HPI. ROS Other: All systems not noted in ROS Statement are negative. Constitutional: Denies: fever Eyes: Denies: eye pain ENT: Denies: ear pain Respiratory: Denies: cough Cardiovascular: Denies: chest pain Endocrine: Denies: fatigue Gastrointestinal: Denies: abdominal pain Genitourinary: Denies: dysuria Musculoskeletal: Reports: as per HPI. Denies: back pain Skin: Denies: rash Neurological: Denies: headache Past Medical History Past Medical History: No Reported History Additional Past Medical History / Comment(s): CONSTIPATION. UMBILICAL HERNIA. History of Any Multi-Drug Resistant Organisms: MRSA Date of last positivie culture/infection: 08/14/20 MDRO Source:: MRSA BUTTOCK Additional Past Surgical History / Comment(s): FACIAL SURGERY D/T ACCIDENT. EXC WISDOM TEETH. right arm, lipoma Past Anesthesia/Blood Transfusion Reactions: No Reported Reaction Past Psychological History: No Psychological Hx Reported Smoking Status: Current every day smoker Past Alcohol Use History: Occasional Past Drug Use History: None Reported - Past Family History Mother Family Medical History: No Reported History General Exam Limitations: physical limitation General appearance: alert Head exam: Present: atraumatic, normocephalic Eye exam: Present: normal appearance, PERRL, EOMI ENT exam: Present: normal exam Neck exam: Present: normal inspection. Absent: tenderness Respiratory exam: Present: normal lung sounds bilaterally Cardiovascular Exam: Present: regular rate, normal rhythm Expanded Peripheral pulses: 2+: Radial (R) GI/Abdominal exam: Present: soft. Absent: distended, tenderness Right Hand Wrist exam: Present: laceration (Macerated right hand.), deformity, other (Dorsal right hand with a large laceration mid hand extending to the third finger. Approximately 12 cm. Dorsal laceration right ring finger approximately 8 cm. Laceration right thumb proximally 5 cm. Laceration to palmar side of the distal palm, approximately 8 x 10 cm. ). Absent: normal inspection (There is bone and tendon and muscle exposed with deformity. Limited range of motion of all digits. No sensation of third and fourth finger. Limited Refill fourth finger.) Vascular: Absent: normal capillary refill Back exam: Present: normal inspection. Absent: tenderness, vertebral tenderness Neurological exam: Present: alert, CN II-XII intact, other (Limited motion right hand all digits secondary to trauma) Psychiatric exam: Present: normal affect, normal mood Skin exam: Present: other (Skin lacerations/macerated right hand) Course Vital Signs 08/16/21 11:30 Temperature 98.1 F Pulse Rate 102 H Respiratory 22 Rate Blood Pressure 158/109 O2 Sat by Pulse 99 Oximetry - Reevaluation(s) Reevaluation #1: 08/16/21 11:40 Case was discussed with Dr. Alonzo upon patient arrival who suspects patient needing transfer however recommends calling back if He is needed. 08/16/21 11:41 Tourniquet was removed minutes after arrival with only minimal bleeding. 08/16/21 11:51 Case was discussed with Dr. Sharma, who will review films even though he is not on-call. 08/16/21 12:10 Case was again discussed with Dr. Sharma who will evaluate and likely take to surgery later today. He will admit. EKG Findings - EKG Comments: EKG Findings:: Sinus tachycardia with rate 11. CO 128. QRS 100. QT 370. QTc 479. Normal axis. Normal QRS. No acute ST change. Medical Decision Making - Lab Data Result diagrams: 08/16/21 11:30 08/16/21 11:30 Lab Results 08/16/21 08/16/21 08/16/21 Range/Units 11:27 11:30 11:30 WBC 12.5 H (3.8-10.6) k/uL RBC 4.33 (4.30-5.90) m/uL Hgb 13.4 (13.0-17.5) gm/dL Hct 41.5 (39.0-53.0) % MCV 95.9 (80.0-100.0) fL MCH 30.9 (25.0-35.0) pg MCHC 32.2 (31.0-37.0) g/dL RDW 13.4 (11.5-15.5) % Plt Count 309 (150-450) k/uL MPV 7.7 Neutrophils % 61 % Lymphocytes % 26 % Monocytes % 5 % Eosinophils % 5 % Basophils % 1 % Neutrophils # 7.6 (1.3-7.7) k/uL Lymphocytes # 3.3 (1.0-4.8) k/uL Monocytes # 0.7 (0-1.0) k/uL Eosinophils # 0.7 (0-0.7) k/uL Basophils # 0.1 (0-0.2) k/uL Sodium 137 (137-145) mmol/L Potassium 4.3 (3.5-5.1) mmol/L Chloride 107 (98-107) mmol/L Carbon Dioxide 22 (22-30) mmol/L Anion Gap 8 mmol/L BUN 16 (9-20) mg/dL Creatinine 0.60 L (0.66-1.25) mg/dL Est GFR (CKD-EPI)AfAm >90 (>60 ml/min/1.73 sqM) Est GFR (CKD-EPI)NonAf >90 (>60 ml/min/1.73 sqM) Glucose 134 H (74-99) mg/dL POC Glucose (mg/dL) 127 H (75-99) mg/dL POC Glu Operations And Maintenance Technician ID Nai Del Valle Calcium 9.2 (8.4-10.2) mg/dL Total Bilirubin 0.5 (0.2-1.3) mg/dL AST 28 (17-59) U/L ALT 24 (4-49) U/L Alkaline Phosphatase 73 (38-126) U/L Total Protein 6.5 (6.3-8.2) g/dL Albumin 4.0 (3.5-5.0) g/dL Serum Alcohol <10 mg/dL - Radiology Data Radiology results: image reviewed (Pelvis x-ray shows no acute process. Chest x-ray shows no acute process. Right hand x-ray shows extensive soft tissue injury with multiple comminuted fractures.) Critical Care Time Critical Care Time: Yes Total Critical Care Time: 34 Disposition Clinical Impression: Crushing injury of right hand and finger Disposition: ADMITTED IP TO THIS [facility] Condition: Serious Is patient prescribed a controlled substance at d/c from ED?: No Referrals: Abdullahi Douglass MD [Primary Care Provider] - 1-2 days Decision Time: 12:11
--- NOTE | 2021-08-16 11:48 | XR ---
EXAMINATION TYPE: XR chest 1V portable DATE OF EXAM: 08/16/2021 COMPARISON: 01/23/2019 HISTORY: Pain TECHNIQUE: Single frontal view of the chest is obtained. FINDINGS: There is no focal air space opacity, pleural effusion, or pneumothorax seen. The cardiac silhouette size is within normal limits. The osseous structures are intact. IMPRESSION: No acute process.
--- NOTE | 2021-08-16 11:50 | XR ---
EXAMINATION TYPE: XR hand complete RT DATE OF EXAM: 08/16/2021 COMPARISON: NONE HISTORY: Pain TECHNIQUE: Three views are submitted. FINDINGS: Exam limited by positioning secondary to the patient's injury. There comminuted fractures w ith significant displacement involving the proximal phalanx of the first, second, third and fourth di gits. Fracture of the distal phalanx first digit. Fractures involving the distal margins of the secon d and third metatarsals with probable articular extension. Fractures involving the proximal phalanges of the first through fourth digits also likely represent articular extension. IMPRESSION: 1. Extensive soft tissue injury with multiple comminuted fractures as discussed above.
--- NOTE | 2021-08-16 11:51 | XR ---
EXAMINATION TYPE: XR pelvis AP view DATE OF EXAM: 08/16/2021 COMPARISON: NONE HISTORY: Pain The osseous structures are intact and the joint spaces are preserved. No acute fracture is seen. Vi sualized bowel gas pattern is nonspecific. IMPRESSION: 1. No acute fracture.
[2021-08-16 11:56] LABS: Basophils # (A) 0.1 k/uL (0-0.2); Basophils % (A) 1 %; Eosinophils # (A) 0.7 k/uL (0-0.7); Eosinophils % (A) 5 %; HCT 41.5 % (39.0-53.0); HGB 13.4 gm/dL (13.0-17.5); Lymphocytes # (A) 3.3 k/uL (1.0-4.8); Lymphocytes % (A) 26 %; MCH 30.9 pg (25.0-35.0); MCHC 32.2 g/dL (31.0-37.0); MCV 95.9 fL (80.0-100.0); Mean Platelet Volume 7.7; Monocytes # (A) 0.7 k/uL (0-1.0); Monocytes % (A) 5 %; Neutrophils # (A) 7.6 k/uL (1.3-7.7); Neutrophils % (A) 61 %; Platelet Count 309 k/uL (150-450); RBC 4.33 m/uL (4.30-5.90); RDW 13.4 % (11.5-15.5); WBC 12.5 k/uL (3.8-10.6)
[2021-08-16 12:06] LABS: ALT 24 U/L (4-49); AST 28 U/L (17-59); African American GFR (CKD) >90 (>60 ml/min/1.73 sqM); Alcohol <10 mg/dL; Alkaline Phosphatase 73 U/L (38-126); Anion Gap 8 mmol/L; Blood Urea Nitrogen 16 mg/dL (9-20); Calcium 9.2 mg/dL (8.4-10.2); Carbon Dioxide 22 mmol/L (22-30); Chloride 107 mmol/L (98-107); Glucose 134 mg/dL (74-99); Non-African American GFR(CKD) >90 (>60 ml/min/1.73 sqM); Potassium 4.3 mmol/L (3.5-5.1); Sodium 137 mmol/L (137-145); Total Bilirubin 0.5 mg/dL (0.2-1.3); Total Protein 6.5 g/dL (6.3-8.2)
[2021-08-16] MEDS ORDERED: HYDROmorphone 0.5 MG/0.5 ML SYRINGE IVP PRN (12:11)
[2021-08-16] MEDS ORDERED: NALOXONE 0.4 MG/ML 1 ML VIAL IV PRN (12:11)
[2021-08-16 12:16] LABS: INR 0.9 (<1.2); Partial Thromboplastin Time 21.4 sec (22.0-30.0); Prothrombin Time 9.8 sec (9.0-12.0)
[2021-08-16] MEDS: HYDROmorphone 1 MG/ML 1 ML SYRINGE IVP PRN ×3 (12:40→14:51)
[2021-08-16] MEDS: SODIUM CHLORIDE 0.9% 1,000 ML IV SCH (12:43)
--- NOTE | 2021-08-16 14:11 | P.HPOR ---
History of Present Illness H&P Date: 08/16/21 Chief Complaint: Right hand crush injury History of Present Illness Initial comments: Patient is a pleasant 51-year-old male presenting to the emergency department following an injury. Patient was at work and states he was near an excavator and his hand got stuck between a box and it was ultimately crushed. Patient denies any other area of injury. Patient is right-hand dominant. No head injury or loss of consciousness. No neck or back pain. No chest pain or dyspnea. No abdominal pain. Patient is ambulatory. He denies any prior injury to this hand before in the past and currently smokes 1.5 PPD. - Related Data Previous Rx's Medication Instructions Recorded Amoxicillin/Potassium Clav 1 each PO Q12HR 20 Days #20 tab 05/09/20 [Augmentin 875-125 Tablet] Allergies Allergy/AdvReac Type Severity Reaction Status Date / Time No Known Allergies Allergy Verified 06/20/21 19:04 Review of Systems ROS Statement: Those systems with pertinent positive or pertinent negative responses have been documented in the HPI. ROS Other: All systems not noted in ROS Statement are negative. Constitutional: Denies: fever Eyes: Denies: eye pain ENT: Denies: ear pain Respiratory: Denies: cough Cardiovascular: Denies: chest pain Endocrine: Denies: fatigue Gastrointestinal: Denies: abdominal pain Genitourinary: Denies: dysuria Musculoskeletal: Reports: as per HPI. Denies: back pain Skin: Denies: rash Neurological: Denies: headache Past Medical History Past Medical History: No Reported History Additional Past Medical History / Comment(s): CONSTIPATION. UMBILICAL HERNIA. History of Any Multi-Drug Resistant Organisms: MRSA Date of last positivie culture/infection: 08/14/20 MDRO Source:: MRSA BUTTOCK Additional Past Surgical History / Comment(s): FACIAL SURGERY D/T ACCIDENT. EXC WISDOM TEETH. right arm, lipoma Past Anesthesia/Blood Transfusion Reactions: No Reported Reaction Past Psychological History: No Psychological Hx Reported Smoking Status: Current every day smoker Past Alcohol Use History: Occasional Past Drug Use History: None Reported - Past Family History Mother Family Medical History: No Reported History Imaging: Xrays of the right hand demonstrate a comminuted intra-articular thumb proximal phalanx fracture with extension into the thumb IP joint. Comminuted intra- articular index finger proximal phalanx fracture. Comminuted intra-articular middle finger metacarpal head fracture, comminuted intra-articular middle finger proximal phalanx fracture. Comminuted ring finger proximal phalanx fracture. Physical exam: RUE: Bandage remained in placed during physical exam due to patient distress leading to limited exam. Finger tips of small finger, index finger and thumb were intact to light touch. Multiple open wounds volarly and dorsally present throughout all digits seen through bandage. Right ring finger is cold and insensate with sluggish cap refill. Middle finger with sluggish cap refill with sensation diminished but intact to dull touch. Remainder of exam limited to due degree of injury and patient discomfort. Plan: Case findings and imaging were discussed with the patient and family at bedside. We discussed the severity of his injury and the permanent damage that he may have from this injury. Due to the crush mechanism of the injury and his present 1.5 PPD smoking history we discussed that he is not a candidate for replantation and we was agreeable and understanding of this. We discussed risks and benefits of surgery including bleeding, infection, damage to surrounding tissue, permanent nerve damage, stiffness, need for further surgery, and possible need for amputations in future were discussed and he was agreeable with going forward with surgery. We will tentatively plan for right hand I&D with CRPP vs ORIF vs possible revision amputation of his multiple metacarpal and phalangeal fractures with possible tendon/nerve repair. He is admitted to the orthopedic service and will be taken to the operating room urgently today. Bedside irrigation was performed and documented by ED providers and 1gm of Ancef and tetanus given upon arrival to ED. All questions answered. Masoud Sharma DO Hand/Upper Extremity Orthopedic Surgeon Past Medical History Past Medical History: No Reported History Additional Past Medical History / Comment(s): CONSTIPATION. UMBILICAL HERNIA. History of Any Multi-Drug Resistant Organisms: MRSA Date of last positivie culture/infection: 08/14/20 MDRO Source:: MRSA BUTTOCK Additional Past Surgical History / Comment(s): FACIAL SURGERY D/T ACCIDENT. EXC WISDOM TEETH. right arm, lipoma Past Anesthesia/Blood Transfusion Reactions: No Reported Reaction Past Psychological History: No Psychological Hx Reported Smoking Status: Current every day smoker Past Alcohol Use History: Occasional Past Drug Use History: None Reported - Past Family History Mother Family Medical History: No Reported History Medications and Allergies Home Medications Medication Instructions Recorded Confirmed Type Ipratropium/Albuterol Sulfate 1 puff INHALATION RT-QID PRN 08/16/21 08/16/21 History [Combivent Respimat Inhaler] Meloxicam [Mobic] 15 mg PO DAILY 08/16/21 08/16/21 History Allergies Allergy/AdvReac Type Severity Reaction Status Date / Time No Known Allergies Allergy Verified 08/16/21 12:41 Physical Examination Osteopathic Statement: *. No significant issues noted on an osteopathic structural exam other than those noted in the History and Physical/Consult. Results - Labs Labs: Abnormal Lab Results - Last 24 Hours (Table) 08/16/21 08/16/21 08/16/21 Range/Units 11:27 11:30 11:30 WBC 12.5 H (3.8-10.6) k/uL APTT 21.4 L (22.0-30.0) sec Creatinine (0.66-1.25) mg/dL Glucose (74-99) mg/dL POC Glucose (mg/dL) 127 H (75-99) mg/dL 08/16/21 Range/Units 11:30 WBC (3.8-10.6) k/uL APTT (22.0-30.0) sec Creatinine 0.60 L (0.66-1.25) mg/dL Glucose 134 H (74-99) mg/dL POC Glucose (mg/dL) (75-99) mg/dL H & H 08/16/21 Range/Units 11:30 Hgb 13.4 (13.0-17.5) gm/dL Hct 41.5 (39.0-53.0) % Coagulation 08/16/21 Range/Units 11:30 INR 0.9 (<1.2) Result Diagrams: 08/16/21 11:30 08/16/21 11:30
[2021-08-16] MEDS ORDERED: fentaNYL (PF) 50 MCG/ML 2 ML AMP ONE (19:37)
[2021-08-16] MEDS ORDERED: ROPIVACAINE 5 MG/ML 30 ML VIAL ONE (19:37)
[2021-08-16] MEDS ORDERED: HYDROmorphone (PF) 1 MG/ML ONE (19:37)
[2021-08-16] MEDS ORDERED: SUCCINYLCHOLINE CHLORIDE 100 MG/5 ML SYR IV ONE (19:37)
[2021-08-16] MEDS ORDERED: ePHEDrine SULFATE/0.9% NACL/PF 50 MG/5 ML SYRINGE IV ONE (19:37)
[2021-08-16] MEDS ORDERED: PROPOFOL 10 MG/ML 20 ML VIAL IV ONE (19:37)
[2021-08-16] MEDS ORDERED: IV FLUID CONTINUATION 500 ML IV ONE (19:38)
[2021-08-16] MEDS ORDERED: SODIUM CHLORIDE 0.9% 50 ML with ceFAZolin 2,000 MG IV ONE ×2 (20:06)
[2021-08-16] MEDS ORDERED: LACTATED RINGERS 1,000 ML IV ONE ×2 (20:46)
[2021-08-17] MEDS ORDERED: VANCOMYCIN IV PER PHARMACY 1 EACH MISC MISCELLANE SCH (00:30)
[2021-08-17] MEDS ORDERED: VANCOMYCIN 1,500 MG in SODIUM CHLORIDE 0.9% 250 ML IVPB ONE (00:45)
[2021-08-17] MEDS ORDERED: PIPERACILLIN-TAZOBACTAM 3.375 GM in SODIUM CHLORIDE 0.9% 100 ML IVPB ONE (00:45)
--- NOTE | 2021-08-17 01:38 | P.OP ---
Date of Procedure: 08/16/21 Preoperative Diagnosis: 1.) Right thumb intra-articular proximal phalanx fracture, displaced, open. 2.) Right thumb distal phalanx fracture, displaced. 3.) Right index finger metacarpal neck fracture, open. 4.) Right index finger intra-articular proximal phalanx fracture, displaced, open. 5.) Right middle finger intra-articular metacarpal head fracture, displaced, open. 6.) Right middle finger intra-articular proximal phalanx fracture, displaced, open. 7.) Right ring finger intra-articular proximal phalanx fracture, displaced, open. 8.) Right complex hand laceration, 21cm total. Postoperative Diagnosis: 1.) Right thumb intra-articular proximal phalanx fracture, displaced, open. 2.) Right thumb distal phalanx fracture, displaced. 3.) Right index finger metacarpal neck fracture, open. 4.) Right index finger intra-articular proximal phalanx fracture, displaced, ope n. 5.) Right middle finger intra-articular metacarpal head fracture, displaced, open. 6.) Right middle finger intra-articular proximal phalanx fracture, displaced, open. 7.) Right ring finger intra-articular proximal phalanx fracture, displaced, open. 8.) Right ring finger segmental radial digital nerve and artery laceration 9.) Right complex hand laceration, 21cm total. Procedure(s) Performed: 1.) ORIF right thumb intra-articular proximal phalanx fracture, displaced, open. 2.) Closed treatment with manipulation right thumb distal phalanx fracture, displaced. 3.) Closed treatment with manipulation right index finger metacarpal neck fracture, open. 4.) ORIF right index finger intra-articular proximal phalanx fracture, displaced, open. 5.) ORIF right middle finger intra-articular metacarpal head fracture, displaced, open. 6.) ORIF right middle finger intra-articular proximal phalanx fracture, displaced, open. 7.) ORIF right ring finger intra-articular proximal phalanx fracture, displaced, open. 8.) Irrigation and debridement of 21cm complex right hand laceration with debridement of bone, soft tissue, and muscle. Anesthesia: MARTIN, regional Surgeon: Masoud Sharma Estimated Blood Loss (ml): 30 Pathology: none sent Condition: stable Disposition: PACU Description of Procedure: This is a 51 year old right hand dominant male who experienced a complex crush injury to his right hand at work when an excavator bucket crushed his hand. He was seen in the emergency department initially where antibiotics, tetanus and bedside irrigation was performed for his complex hand injury with multiple open fractures with severe contamination and due to the amount of contamination, complexity of his injury he was taken to the operating room the same night for surgical intervention. In the ED he had a dusky and cold ring finger and sluggish cap refill of the middle finger. Risks and benefits of surgery were discussed with the patient including bleeding, damage to surrounding tissue, infection, need for further surgery, possible loss of digit/limb, as well as risks of anesthesia including pulmonary embolism and even and the patient wished to proceed with surgical intervention. The patients was seen in the pre- operative area by myself. Consent and H&P were completed and updated. The correct extremity was marked in the pre-operative area by myself and all other questions were answered. Patient received a pre-operative nerve block for pain control. Operative Narrative: The patient was brought to the operating room by the department of anesthesia. He remained on his hospital bed and a rolling hand table was brought to the side of the operative extremity. The patient was then drifted off to sleep by the department of anesthesia. A nonsterile tourniquet was then applied to the operative extremity and the right upper extremity was then prepped and draped in normal sterile fashion. Pre-operative time out was performed indicating the correct patient, procedure and laterality. All in the room agreed. Pre-operative antibiotics were given prior to skin incision. Upon taking down the dressing there was immediate presence of extensive dirt /mud contamination of all of his open wounds and fractures both volarly and dorsally with deep penetration of mud and dirt coated around soft tissue, bone and muscle. Non viable tissue and skin edges were debrided and excised. 4L total of sterile saline was used to irrigate all wounds as best as possible with use of additional sterile hibiclens and scrub brush. After establishing a clean wound bed the ring finger and middle fingers did appear to have sluggish cap refill with the ring finger having a slight dusky appearance which slightly improved with longitudinal traction. Tourniquet was inflated to 250 mmhg after exsanguination with esmarch bandage. Attention was brought to the thumb, there was a longitudinal laceration along the radial boarder of the thumb with exposed open proximal phalanx fracture fragments. FPL was identified and completely intact as well as the radial and ulnar digital nerves. Pointed reduction clamp was placed across the comminuted intra-articular thumb proximal phalanx fracture to restore the joint surface and 3 0.045 K-wires were utilized to stabilize the radial and ulnar condylar fragments to the diaphyseal bone with intramedullary wire placement confirmed on intra operative flouro. Thumb wound closure was then performed with 4-0 chromic suture. Attention was then brought the the index finger. There was a 8cm, thin, oblique, ulnarly based skin flap at the level of the distal palm that extended from the first webspace all the way across to the base of the ring finger volarly. This was reflected gently and open reduction of the index metacarpal neck fracture was performed and reduction of comminuted intra-articular proximal phalanx fracture was stabilized with 2 0.045 k- wires in a cross pin fashion. Radial and ulnar neurovascular bundles were identified and found to be intact but severely contused, FDP and FDS were also found to be intact. The middle finger neurovascular bundles were also identified and found to be intact however severely contused and hemorrhagic in appearance, FDP and FDS were both intact. Open reduction was performed of the comminuted intra-articular proximal phalanx fracture and secured with 2 0.045 k-wires. Stabilization of the index metacarpal head/neck fracture was achieved with an retrograde intramedullary 0.045 k-wire with bicortical purchase. The ring finger radial neurovascular bundle was identified and found to be lacerated at the level of the distal palm, there was a segmental crush injury to both the nerve and artery proximally and distally from the laceration leaving 3cm gap which was not amendable to repair at this index procedure. Ulnar digital neurovascular bundle was identified and was found to be intact. There was extensive comminution and contamination in the diaphyseal portion of the ring finger proximal phalanx with segmental bone loss. Spanning k wire fixation was performed with 2 0.045 k-wire in a retrograde fashion in attempt to span the area of diaphyseal bone loss and comminution. Overall length and rotation of all digits and acceptable finger cascade was appreciated at the completion of all bony fixation. Tourniquet was let down at 2 hours. At the completion of the surgery all fingers were perfused although the ring and middle finger had sluggish but present cap refill consistent with pre-operative findings. Sluggish cap refill was also seen of the large volar ulnarly based skin flap at the level of the distal palm. The wound was the copiously irrigated again, k-wires were cut beneath the skin and skin closure was performed with 4-0 chromic suture. The pa tient was placed in a large bulky dressing/splint with fluffs, adaptic, plaster, and an zack-wrap. The patient was then woken by the department of anesthesia and transferred to PACU in stable condition. Post operative plan: The patient will be monitored in the hospital over the next 48 hours and will continue post operative antibiotics (Vanco/Zosyn). He is at a very high risk of infection due to the amount of contamination found intra-operatively to his entire hand. Prognosis and likely santacruz of ring finger and middle finger digits is guarded due to the crushing mechanism to his neurovascular bundles and we discussed pre and post operatively that amputation may be needed in the future. We will plan to take down the dressing on 08/18/21 to determine if further rubi gical intervention is needed based off of skin and digit viability and if any concerns of infection arise. He will ultimately need surgery in 6 weeks for k wire removal. He is to be nonweight bearing of the right upper extremity. The dressing may be re-enforced as needed over the next 24 hours and I anticipate pain control in the form of oral and IV medication will be needed after the post operative block wears off. Masoud Sharma D.O. Orthopedic Hand/Upper Extremity Surgeon
[2021-08-17] MEDS: SODIUM CHLORIDE 0.9% 1,000 ML IV SCH ×4 (01:42→21:13)
[2021-08-17] MEDS: HYDROcodone/APAP 5-325MG 1 EACH TAB PO PRN ×2 (04:08→10:31)
[2021-08-17] MEDS: HYDROmorphone 1 MG/ML 1 ML SYRINGE IVP PRN ×6 (05:02→22:10)
[2021-08-17 05:41] LABS: Appearance,Urine Clear (Clear); Bilirubin,Urine Negative (Negative); Blood,Urine Negative (Negative); Color,Urine Yellow; Glucose,Urine (UA) Negative (Negative); Ketones,Urine Negative (Negative); Leukocyte Esterase,Urine Negative (Negative); Nitrite,Urine Negative (Negative); Protein,Urine Negative (Negative); Urobilinogen,Urine <2.0 mg/dL (<2.0)
[2021-08-17 05:47] LABS: Amphetamine Screen,Urine Not Detected (NotDetected); Barbiturate Screen,Urine Not Detected (NotDetected); Benzodiazepines Screen,Urine Not Detected (NotDetected); Cocaine Screen,Urine Not Detected (NotDetected); Methadone Screen, Urine Not Detected (NotDetected); Opiate Screen,Urine Detected (NotDetected); Oxycodone Screen, Urine Not Detected (NotDetected); Phencyclidine Screen,Urine Not Detected (NotDetected); Tricyclic Antidepressant,Urine Not Detected (NotDetected); Urn Cannabinoid Scrn Not Detected (NotDetected)
[2021-08-17] MEDS ORDERED: oxyCODONE-APAP 5-325MG 1 EACH TAB PO PRN (06:56)
[2021-08-17] MEDS: oxyCODONE-APAP 5-325MG 1 EACH TAB PO PRN ×2 (07:11→16:11)
[2021-08-17 07:25] LABS: African American GFR (CKD) >90 (>60 ml/min/1.73 sqM); Anion Gap 6 mmol/L; Blood Urea Nitrogen 11 mg/dL (9-20); Calcium 8.3 mg/dL (8.4-10.2); Carbon Dioxide 23 mmol/L (22-30); Chloride 107 mmol/L (98-107); Glucose 104 mg/dL (74-99); Non-African American GFR(CKD) >90 (>60 ml/min/1.73 sqM); Potassium 3.9 mmol/L (3.5-5.1); Sodium 136 mmol/L (137-145)
[2021-08-17] MEDS ORDERED: ENOXAPARIN 40 MG/0.4 ML SYRINGE SQ SCH (09:00)
--- NOTE | 2021-08-17 09:56 | P.PN ---
Subjective Progress Note Date: 08/17/21 Principal diagnosis: Right hand crush injury Hand Surgery progress note: Subjective: 51 year old male now post op day one after undergoing irrigation, debridment and ORIF of multiple hand fractures after a severe crush injury to the right hand from an excavator with extensive contamination. His nerve block is now starting to wear off and his pain levels are increasing but starting to be more controlled and he has been able to periodically rest and get sleep. The arm is elevated on a pillow and splint is intact. Physical Exam: RUE:Splint/post op dressing clean dry and intact with finger tips exposed. Ring finger tip dark and dusky. Thumb, index, middle and small finger all have brisk cap refill. Remainder of exam limited. Impression: s/p 1.) ORIF right thumb intra-articular proximal phalanx fracture, displaced, open. 2.) Closed treatment with manipulation right thumb distal phalanx fracture, displaced. 3.) Closed treatment with manipulation right index finger metacarpal neck fract ure, open. 4.) ORIF right index finger intra-articular proximal phalanx fracture, displaced, open. 5.) ORIF right middle finger intra-articular metacarpal head fracture, displaced, open. 6.) ORIF right middle finger intra-articular proximal phalanx fracture, displaced, open. 7.) ORIF right ring finger intra-articular proximal phalanx fracture, displaced, open. 8.) Irrigation and debridement of 21cm complex right hand laceration with debridement of bone, soft tissue, and muscle. Plan: Surgical findings were discussed with the patient at bedside. We discussed the s everity and complexity of his severe crush injury and that over the next 24 to 48 hours we will closely monitor the viability of his digits and assess any need for additional surgery/procedures in the following days. His ring finger on exam today is dusky with poor blood flow and we discussed the high likelihood of needing amputation if it does not not have adequate perfusion in the future. We will continue to monitor the patient and keep him on post op antibiotics for the next 24 hours. Plan to take down the dressing on POD 2 to assess viability of skin, digits and to monitor any signs of infection. Multimodal pain control to be continued to make patient as comfortable as possible. Elevate the upper extremity, encourage ambulation, DVT prophylaxis, bowel stim due to high need of narcotic pain medications. -Masoud Sharma DO Orthopedic Hand/Upper Extremity Surgeon Objective - Vital Signs Vital signs: Vital Signs Temp 98.7 F 08/17/21 08:00 Pulse 83 08/17/21 08:00 Resp 19 08/17/21 08:00 BP 137/76 08/17/21 08:00 Pulse Ox 95 08/17/21 08:00 Intake & Output 08/16/21 08/17/21 08/17/21 18:59 06:59 18:59 Intake Total 1480 Output Total 480 Balance 1000 Weight 87.997 kg Intake: IV 1000 Oral 480 Output: Urine 450 Estimated Blood Loss 30 Other: Voiding Method Urinal # Voids 1 2 - Labs CBC & Chem 7: 08/16/21 11:30 08/17/21 06:25 Labs: Abnormal Lab Results - Last 24 Hours (Table) 08/16/21 08/16/21 08/16/21 Range/Units 11:27 11:30 11:30 WBC 12.5 H (3.8-10.6) k/uL APTT 21.4 L (22.0-30.0) sec Sodium (137-145) mmol/L Creatinine (0.66-1.25) mg/dL Glucose (74-99) mg/dL POC Glucose (mg/dL) 127 H (75-99) mg/dL Calcium (8.4-10.2) mg/dL Urine Opiates Screen (NotDetected) U Methamphetamines Scrn (NotDetected) 08/16/21 08/16/21 08/17/21 Range/Units 11:30 Unknown 06:25 WBC (3.8-10.6) k/uL APTT (22.0-30.0) sec Sodium 136 L (137-145) mmol/L Creatinine 0.60 L 0.60 L (0.66-1.25) mg/dL Glucose 134 H 104 H (74-99) mg/dL POC Glucose (mg/dL) (75-99) mg/dL Calcium 8.3 L (8.4-10.2) mg/dL Urine Opiates Screen Detected H (NotDetected) U Methamphetamines Scrn Detected H (NotDetected)
[2021-08-17] MEDS: SENNOSIDES-DOCUSATE SODIUM 1 EACH TAB PO SCH (10:31)
[2021-08-17] MEDS: PREGABALIN 75 MG CAP PO SCH ×2 (10:31→21:01)
[2021-08-17] MEDS: NICOTINE 21MG/24HR PATCH TRANSDERM SCH (10:32)
[2021-08-17] MEDS: PIPERACILLIN-TAZOBACTAM 3.375 GM in SODIUM CHLORIDE 0.9% 100 ML IVPB SCH ×2 (11:03→18:13)
--- NOTE | 2021-08-17 11:49 | P.ANPRN ---
Procedure Note - Anesthesia - Nerve Block Performed Right Axillary Single Time Out Performed: Yes Date of Procedure: 08/16/21 Procedure Start Time: 18:43 Procedure Stop Time: 18:48 Location of Patient: PreOp Indication: Acute Post-Operative Pain, Dx/Pain Location, Requested by Surgeon Specifically requested for management of pain by DrLoy: Masoud Sharma Sedation Type: Awake Preparation: Sterile Prep Position: Supine Catheter: None Needle Types: Facet Needle Gauge: 21 Ultrasound used to visualize needle placement: Yes Ultrasound used to observe medication spread: Yes Injectate: 0.5% Ropivacaine (see comment for volume) Blood Aspirated: No Pain Paresthesia on Injection Noted: No Resistance on Injection: Normal Image Stored and Saved: Yes Events: Uneventful and Well Tolerated (20cc 0.5% ropivacaine)
[2021-08-17] MEDS ORDERED: VANCOMYCIN 1,500 MG in SODIUM CHLORIDE 0.9% 250 ML IVPB SCH (14:00)
[2021-08-17] MEDS: VANCOMYCIN 1,500 MG in SODIUM CHLORIDE 0.9% 250 ML IVPB SCH ×2 (14:48→21:01)
--- NOTE | 2021-08-17 16:07 | P.PN ---
Progress Note - Text Progress Note Date: 08/17/21 Update: Will tentatively plan for return to OR tomorrow 08/18/21 for repeat I&D of right hand. NPO at midnight, Lovenox held at midnight. -Masoud Sharma DO Orthopedic Hand/Upper Extremity Surgeon
[2021-08-17] MEDS: ACETAMINOPHEN TAB 325 MG TAB PO PRN (17:16)
[2021-08-18] MEDS: PIPERACILLIN-TAZOBACTAM 3.375 GM in SODIUM CHLORIDE 0.9% 100 ML IVPB SCH ×3 (01:01→18:23)
[2021-08-18] MEDS: SODIUM CHLORIDE 0.9% 1,000 ML IV SCH ×3 (01:01→18:27)
[2021-08-18] MEDS: HYDROmorphone 1 MG/ML 1 ML SYRINGE IVP PRN ×4 (02:03→23:06)
[2021-08-18] MEDS: ACETAMINOPHEN TAB 325 MG TAB PO PRN ×3 (04:44→20:54)
[2021-08-18] MEDS: VANCOMYCIN 1,500 MG in SODIUM CHLORIDE 0.9% 250 ML IVPB SCH ×3 (04:45→20:53)
[2021-08-18] MEDS: PREGABALIN 75 MG CAP PO SCH ×2 (08:44→20:52)
[2021-08-18] MEDS: SENNOSIDES-DOCUSATE SODIUM 1 EACH TAB PO SCH (08:44)
[2021-08-18] MEDS: NICOTINE 21MG/24HR PATCH TRANSDERM SCH (08:44)
[2021-08-18] MEDS ORDERED: MIDAZOLAM 2 MG/2 ML VIAL IVP ONE ×2 (11:16→11:18)
[2021-08-18] MEDS ORDERED: fentaNYL (PF) 50 MCG/ML 2 ML AMP IVP ONE ×2 (11:16→11:18)
--- NOTE | 2021-08-18 11:17 | P.PN ---
Subjective Progress Note Date: 08/18/21 Principal diagnosis: Right hand crush injury Subjective: 51 year old male now post op day 2 after undergoing irrigation, debridment and ORIF of multiple hand fractures after a severe crush injury to the right hand from an excavator with extensive contamination. His pain level has been under better control over the last 24 hours, he has been on vancomycin/zosyn since POD 1 and he has been elevating the upper extremity and has been NPO since midnight for re-look surgery today. Physical Exam: RUE:Splint/post op dressing clean dry and intact with finger tips exposed. Ring finger tip dark and dusky, insensate. Middle digit tip dusky with sluggish cap refill, insensate. Small digit will perfused with sensation intact. Index finger tip well perfused with sensation intact, thumb tip well perfused with sensation intact. Impression: s/p 1.) ORIF right thumb intra-articular proximal phalanx fracture, displaced, open. 2.) Closed treatment with manipulation right thumb distal phalanx fracture, displaced. 3.) Closed treatment with manipulation right index finger metacarpal neck fracture, open. 4.) ORIF right index finger intra-articular proximal phalanx fracture, displaced, open. 5.) ORIF right middle finger intra-articular metacarpal head fracture, displaced, open. 6.) ORIF right middle finger intra-articular proximal phalanx fracture, displaced, open. 7.) ORIF right ring finger intra-articular proximal phalanx fracture, displaced, open. 8.) Irrigation and debridement of 21cm complex right hand laceration with debridement of bone, soft tissue, and muscle. Plan: Surgical findings were discussed with the patient, and family at bedside. We discussed the severity and complexity of his severe limb threatening crush injury and that he will require a second look surgery today with repeat I&D now that his zone of injury is appearing to demarcate 24-36 hours after his initial washout which may include possible amputation of non-viable digits. His ring finger on exam today is dark, dusky and the middle finger also appears to have compromised blood flow and we discussed the possible need for amputation at todays surgery. I explained in depth that any nonviable tissue will need to be removed to reduce the risk of infection and wound complications and he will likely still require multiple surgeries in the future including possible further amputation and soft tissue reconstruction as the zone of injury continues to progress. The patient and family were understanding of this and wished to proceed with surgery today. -Masoud Sharma DO Orthopedic Hand/Upper Extremity Surgeon Objective - Vital Signs Vital signs: Vital Signs Temp 99.5 F 08/18/21 08:00 Pulse 83 08/18/21 08:00 Resp 19 08/18/21 08:00 BP 121/80 08/18/21 08:00 Pulse Ox 95 08/18/21 08:00 Intake & Output 08/17/21 08/18/21 08/18/21 18:59 06:59 18:59 Other: Voiding Method Urinal Urinal Urinal # Voids 3 3 - Labs CBC & Chem 7: 08/16/21 11:30 08/17/21 06:25
[2021-08-18] MEDS ORDERED: PHENYLEPHRINE-0.9% NACL SYG 1,000 MCG/10 ML SYRINGE ONE (11:33)
[2021-08-18] MEDS ORDERED: ROPIVACAINE 5 MG/ML 30 ML VIAL ONE (11:33)
[2021-08-18] MEDS ORDERED: ONDANSETRON 4 MG/2 ML VIAL ONE (11:33)
[2021-08-18] MEDS ORDERED: DEXAMETHASONE SOD PHOSPHATE 10 MG/ML 1 ML VIAL ONE (11:33)
[2021-08-18] MEDS ORDERED: fentaNYL (PF) 50 MCG/ML 2 ML AMP ONE (11:33)
[2021-08-18] MEDS ORDERED: GLYCOPYRROLATE 0.2 MG/ML 2 ML VIAL ONE (11:33)
[2021-08-18] MEDS ORDERED: SUCCINYLCHOLINE CHLORIDE 100 MG/5 ML SYR IV ONE (11:33)
[2021-08-18] MEDS ORDERED: PROPOFOL 10 MG/ML 20 ML VIAL IV ONE (11:33)
[2021-08-18] MEDS ORDERED: ePHEDrine SULFATE/0.9% NACL/PF 50 MG/5 ML SYRINGE IV ONE (11:33)
[2021-08-18] MEDS ORDERED: LIDOCAINE 1% INJ 10MG/ML (20 ML MDV) ONE (11:33)
[2021-08-18] MEDS ORDERED: IV FLUID CONTINUATION 1,000 ML IV ONE (11:34)
[2021-08-18] MEDS ORDERED: BACITRACIN 50,000 UNIT VIAL TOPICAL ONE (13:15)
--- NOTE | 2021-08-18 14:41 | P.ANPRN ---
Procedure Note - Anesthesia - Nerve Block Performed Right Axillary Time Out Performed: Yes (11:15) Date of Procedure: 08/18/21 Procedure Start Time: Procedure Stop Time: Location of Patient: Phase I Indication: Acute Post-Operative Pain, Requested by Surgeon (Dr Sharma) Sedation Type: Sedate with meaningful contact maintained Preparation: Sterile Prep Position: Supine Catheter: None Needle Types: Pajunk Needle Gauge: Other (see comment) (22g) Ultrasound used to visualize needle placement: Yes Ultrasound used to observe medication spread: Yes Injectate: 0.5% Ropivacaine (see comment for volume) (23cc) Blood Aspirated: No Pain Paresthesia on Injection Noted: No Resistance on Injection: Normal Image Stored and Saved: Yes Events: Uneventful and Well Tolerated
--- NOTE | 2021-08-18 15:39 | P.OP ---
Date of Procedure: 08/18/21 Preoperative Diagnosis: 1.) Right Hand Crush Injury 2.) Right right ring finger gangrene Postoperative Diagnosis: Same Procedure(s) Performed: 1.) Right hand I&D with debridement of nonviable bone, muscle, tendon and soft tissue. 2.) Right ring finger amputation at level of MCP joint. Anesthesia: MARTIN Surgeon: Masoud Sharma Pathology: none sent Condition: stable Disposition: PACU Operative Findings: This is a 51 year old right hand dominant male who experienced a complex crush injury to his right hand at work when an excavator bucket crushed his hand on a construction site on 08/16/21. He was seen in the emergency department initially where antibiotics, tetanus and bedside irrigation was performed for his complex hand injury with multiple open fractures with severe contamination. Due to the amount of contamination and open nature of his injuries he was taken to the operating room the same night for surgical intervention where right hand I&D and ORIF of his multiple fractures were performed. Over the last 24-36 hours the zone of injury has begun to better demarcate resulting in gangrene of the right ring finger. Today he returns to the operating room for a second look procedure with repeat I&D and possible digit amputations. Risks and benefits of surgery were discussed with the patient including bleeding, damage to surrounding tissue, infection, need for further surgery, possible loss of digit/limb, as well as risks of anesthesia including pulmonary embolism and even and the patient wished to proceed with surgical intervention. The patients was seen in the pre-operative area by myself. Consent and H&P were completed and updated. The correct extremity was marked in the pre-operative area by myself and all other questions were answered. Patient received a pre-operative nerve block for pain control. Operative Narrative: The patient was brought to the operating room by the department of anesthesia. He remained on his hospital bed and a rolling hand table was brought to the side of the operative extremity. The patient was then drifted off to [facility] by the department of anesthesia. A nonsterile tourniquet was then applied to the operative extremity and the right upper extremity was then prepped and draped in normal sterile fashion. Pre-operative time out was performed indicating the correct patient, procedure and laterality. All in the room agreed. The patient has been on scheduled Vanco/Zosyn since his first surgery on 08/16/21. Upon surgery start after dressing take down and sterile prep the hand did have a slightly foul odor. Wound edges were all still well approximated both dorsally and volarly. The ring finger tip appeared to be ischemic with a dark purple/black apperance from the level of the distal palmar crease to the tip of the finger volarly and to the level of the PIP joint dorsally. All volar skin on the ring finger was mottled and dysvascular. 22 G needle was utilized to assess vascularity of the volar tissues of the ring finger and no blood was expressed after piercing skin until the level of the distal palmar crease. Attention was then drawn to the previously sutured transverse palmar skin flap, being careful to not disrupt the ulnar base. Sutures were cut around the flap edges and this tissue was mottled, dysvascular and non viable with deep contamination still present despite prior thorough debridement, therefore it was trimmed back until clean wound edges were appreciated. This ultimately left an 8x4 soft tissue defect at the volar base of the index and middle fingers extending from the first web space to the ulnar base of the ring finger with exposed nerve, tendon and bone. The wound was then thoroughly irrigated with 6 L of sterile saline hung to gravity where additional dirt, debris and nonviable soft tissue was removed. Due to the gangrenous appearance and dysvascular appearance of the ring finger the decision was then made to perform right ring finger amputation at level of the MCP joint. Tourniquet was inflated at this time to 250 mmHg. Preservation of the healthy appearing dorsal skin/soft tissue was performed to assist in later soft tissue coverage, contaminated and comminuted proximal phlanax bone was removed in its entirety. FDP/FDS tendons were identified and cut sharply under tension. The dorsal skin flap was then brought volarly to assist in covering part of the palmar soft tissue deficit. Additional irrigation was then performed. Intra-op flouro was used to confirm complete removal of all bethany structures distal to the MCP joint. The middle finger appeared to have brisk cap refill at the level distal to the PIP joint, de-epithiliazed tissue at the volar base of the digit was removed to reveal hyperemic mottled appearing volar soft tissue which was ultimately kept in place. Gross contamination was still present at the middle finger overlying the proximal phalanx that involved the flexor tendon sheath, additional irrigation and debridement of non viable tissue and foregin debris was again performed. Decision was made to retain the middle finger due to preserved vascularity. All wound edges were then loosely approximated with 4-0 nylon suture. Sterile adaptic/bacitracin was applied over area of soft tissue defect to keep a moist wound bed. Large bulky splint was then applied consisting of fluffs, cast padding, and loose zack wrap around the extremity. Tourniquet was let down and all remaining digits had good cap refill. The patient was then woken by the department of anesthesia and transferred to PACU in stable condition. Post operative plan: The patient will be monitored in the hospital and will continue post operative antibiotics (Vanco/Zosyn) due to the persistent and extensive contamination still present on today repeat I&D. No gross purulence was appreciated during today's surgery. He is still at a very high risk of infection. Further discussion was had with the patient and I explained the need for likely several more serial debridements as his crush zone of injury continues to declare itself. He currently has a 8x4cm palmar soft tissue defect that will likely need full thickness coverage in the future. We discussed that this would be best performed in the near future at a tertiary care facility with a higher level multi-specialty level of care available. I have initiated a transfer to [facility] due to higher level of care that will ultimately be needed for soft tissue coverage/reconstruction in the future. Depending on [facility] availability and timing an additional I&D of the right hand may need to be performed if the patient remains at this institution for the next 24 to 48 hours. This was discussed with the patient and family at [facility] and they were agreeable with this plan of action. The dressing may be re-enforced as needed over the next 24 hours and I anticipate pain control in the form of oral and IV medication will be needed after the post operative block wears off. Masoud Sharma D.O. Orthopedic Hand/Upper Extremity Surgeon
[2021-08-18 16:42] LABS: HCT 36.2 % (39.0-53.0); MCH 32.2 pg (25.0-35.0); MCHC 33.1 g/dL (31.0-37.0); MCV 97.5 fL (80.0-100.0); Mean Platelet Volume 7.8; Platelet Count 222 k/uL (150-450); RBC 3.72 m/uL (4.30-5.90); RDW 13.6 % (11.5-15.5)
[2021-08-18 16:54] LABS: African American GFR (CKD) >90 (>60 ml/min/1.73 sqM); Anion Gap 7 mmol/L; Blood Urea Nitrogen 7 mg/dL (9-20); Calcium 8.3 mg/dL (8.4-10.2); Carbon Dioxide 21 mmol/L (22-30); Chloride 107 mmol/L (98-107); Glucose 183 mg/dL (74-99); Non-African American GFR(CKD) >90 (>60 ml/min/1.73 sqM); Sodium 135 mmol/L (137-145)
[2021-08-18] MEDS: ENOXAPARIN 30 MG/0.3 ML SYRINGE SQ SCH (20:52)
[2021-08-19] MEDS: PIPERACILLIN-TAZOBACTAM 3.375 GM in SODIUM CHLORIDE 0.9% 100 ML IVPB SCH ×3 (01:46→18:06)
[2021-08-19] MEDS: HYDROmorphone 1 MG/ML 1 ML SYRINGE IVP PRN ×8 (01:46→22:59)
[2021-08-19] MEDS: SODIUM CHLORIDE 0.9% 1,000 ML IV SCH ×2 (01:51→18:42)
[2021-08-19] MEDS: VANCOMYCIN 1,500 MG in SODIUM CHLORIDE 0.9% 250 ML IVPB SCH ×3 (05:54→21:31)
[2021-08-19] MEDS: PREGABALIN 75 MG CAP PO SCH ×2 (08:31→21:31)
[2021-08-19] MEDS: SENNOSIDES-DOCUSATE SODIUM 1 EACH TAB PO SCH (08:31)
[2021-08-19] MEDS: NICOTINE 21MG/24HR PATCH TRANSDERM SCH (08:31)
[2021-08-19 09:04] LABS: HCT 33.4 % (39.6-50.0); HGB 10.2 g/dL (13.0-17.0); MCHC 30.5 g/dL (32.0-37.0); MCV 98.2 fL (80.0-97.0); Mean Platelet Volume 11.2 fL (9.5-12.2); Platelet Count 227 X 10*3/uL (140-440); RDW 14.3 % (11.5-14.5); WBC 14.29 X 10*3/uL (4.50-10.00)
[2021-08-19 10:12] LABS: Anion Gap 12.6 mmol/L (4.00-12.00); BUN/Creat Ratio 13.12 Ratio (12.00-20.00); Blood Urea Nitrogen 8.6 mg/dL (9.0-27.0); Calcium 8.2 mg/dL (8.7-10.3); Carbon Dioxide 20.6 mmol/L (21.6-31.8); Non-African American GFR(CKD) 112.2 (60.0-200.0); Potassium 4.3 mmol/L (3.5-5.5)
--- NOTE | 2021-08-19 10:41 | P.PN ---
Subjective Progress Note Date: 08/19/21 Principal diagnosis: Right hand crush injury Subjective: 51 year old male now post op day 1 & 3 after undergoing irrigation, debridment and ORIF of multiple hand fractures and right ring finger amputation after a severe crush injury to the right hand from an excavator with extensive contamination. His pain level has been under better control under control and he has been on vancomycin/zosyn since POD 1 due to the severe contamination and current open nature of his surgical site. He has been elevating the upper extremity. Physical Exam: RUE:Splint/post op dressing clean dry and intact with finger tips exposed. Middle digit tip well perfused with <3 second cap refill, insensate. Small digit will perfused with sensation intact. Index finger tip well perfused with sensation intact, thumb tip well perfused with sensation intact. Impression: s/p 1.) ORIF right thumb intra-articular proximal phalanx fracture, displaced, open. 2.) Closed treatment with manipulation right thumb distal phalanx fracture, displaced. 3.) Closed treatment with manipulation right index finger metacarpal neck fracture, open. 4.) ORIF right index finger intra-articular proximal phalanx fracture, displaced, open. 5.) ORIF right middle finger intra-articular metacarpal head fracture, displaced, open. 6.) ORIF right middle finger intra-articular proximal phalanx fracture, displaced, open. 7.) ORIF right ring finger intra-articular proximal phalanx fracture, displaced, open. 8.) Irrigation and debridement of 21cm complex right hand laceration with debridement of bone, soft tissue, and muscle. 9.) Right ring finger amputation. Plan: Today he is doing well, he is afebrile and in good spirits. We re-discussed the future plan going forward and after lengthy discussion with the patient and family yesterday we are still going forward with the plan to ultimately transfer him to [facility] for future soft tissue reconstruction. I spoke yesterday with the [facility] transfer team as well as the physical education teacher plastic hand surgeon Dr. Hamm who states they have accepted the transfer and are awaiting a bed to open up, once this occurs he will be transfered for future soft tissue/ possible flap recontruction that he will require in the near future. We will plan to keep the patient on antibiotics due to the open nature and contamination of his wound. Continue to elevate the RUE. If the patient is still awaiting transfer by Thursday08/20/21 we discussed the need to take down the dressing to assess futher viability and that he may need an additional formal repeat I&D in the OR until transfer has occurred. He was agreeable and understanding with this. -Masoud Sharma DO Orthopedic Hand/Upper Extremity Surgeon Objective - Vital Signs Vital signs: Vital Signs Temp 98.1 F 08/19/21 08:00 Pulse 80 08/19/21 08:00 Resp 16 08/19/21 08:00 BP 125/59 08/19/21 08:00 Pulse Ox 96 08/19/21 08:00 Intake & Output 08/18/21 08/19/21 08/19/21 18:59 06:59 18:59 Intake Total 400 Output Total 10 450 Balance 390 -450 Intake: IV 400 Output: Urine 450 Estimated Blood Loss 10 Other: Voiding Method Urinal Urinal # Voids 3 3 - Labs CBC & Chem 7: 08/19/21 06:15 08/19/21 06:15 Labs: Abnormal Lab Results - Last 24 Hours (Table) 08/18/21 08/18/21 08/19/21 Range/Units 16:20 16:20 06:15 WBC 14.0 H 14.29 H (3.8-10.6) k/uL RBC 3.72 L 3.40 L (4.30-5.90) m/uL Hgb 12.0 L 10.2 L (13.0-17.5) gm/dL Hct 36.2 L 33.4 L (39.0-53.0) % MCV 98.2 H (80.0-97.0) fL MCHC 30.5 L (32.0-37.0) g/dL Sodium 135 L (137-145) mmol/L Carbon Dioxide 21 L (22-30) mmol/L BUN 7 L (9-20) mg/dL Creatinine 0.53 L (0.66-1.25) mg/dL Glucose 183 H (74-99) mg/dL Calcium 8.3 L (8.4-10.2) mg/dL
[2021-08-19] MEDS: ENOXAPARIN 30 MG/0.3 ML SYRINGE SQ SCH (19:46)
[2021-08-19] MEDS ORDERED: VANCOMYCIN TROUGH DUE 1 EACH MISC MISCELLANE ONE (20:00)
[2021-08-19] MEDS: MELOXICAM 7.5 MG TAB PO SCH (23:31)
[2021-08-20] MEDS: PIPERACILLIN-TAZOBACTAM 3.375 GM in SODIUM CHLORIDE 0.9% 100 ML IVPB SCH ×3 (01:44→20:06)
[2021-08-20] MEDS: SODIUM CHLORIDE 0.9% 1,000 ML IV SCH ×3 (04:34→20:09)
[2021-08-20] MEDS: HYDROmorphone 1 MG/ML 1 ML SYRINGE IVP PRN ×4 (07:03→23:20)
[2021-08-20] MEDS: PREGABALIN 75 MG CAP PO SCH ×2 (07:06→20:06)
[2021-08-20] MEDS: SENNOSIDES-DOCUSATE SODIUM 1 EACH TAB PO SCH (07:06)
[2021-08-20] MEDS: MELOXICAM 7.5 MG TAB PO SCH (07:07)
[2021-08-20] MEDS: NICOTINE 21MG/24HR PATCH TRANSDERM SCH (07:08)
[2021-08-20 07:36] LABS: HCT 35.5 % (39.0-53.0); HGB 11.4 gm/dL (13.0-17.5); MCH 31.8 pg (25.0-35.0); MCHC 32.1 g/dL (31.0-37.0); Mean Platelet Volume 8.2; Platelet Count 279 k/uL (150-450); RBC 3.58 m/uL (4.30-5.90); RDW 13.3 % (11.5-15.5); WBC 10.9 k/uL (3.8-10.6)
[2021-08-20 07:48] LABS: African American GFR (CKD) >90 (>60 ml/min/1.73 sqM); Anion Gap 6 mmol/L; Blood Urea Nitrogen 8 mg/dL (9-20); Calcium 8.6 mg/dL (8.4-10.2); Carbon Dioxide 26 mmol/L (22-30); Chloride 105 mmol/L (98-107); Glucose 108 mg/dL (74-99); Non-African American GFR(CKD) >90 (>60 ml/min/1.73 sqM); Potassium 4.2 mmol/L (3.5-5.1); Sodium 137 mmol/L (137-145)
[2021-08-20] MEDS ORDERED: MAGNESIUM HYDROXIDE 2,400 MG/10 ML CUP PO PRN (08:03)
--- NOTE | 2021-08-20 11:20 | P.PN ---
Subjective Progress Note Date: 08/20/21 Principal diagnosis: Right hand crush injury 51 year old male now post op day 2 & 4 after undergoing irrigation, debridment and ORIF of multiple hand fractures and right ring finger amputation after a severe crush injury to the right hand from an excavator with extensive contami nation. His pain level has been under better control under control and he has been on vancomycin/zosyn since POD 1 due to the severe contamination and current open nature of his surgical site. He has been elevating the upper extremity. He notes today that he has not had a bowel movement since admission, he denies any abdominal pain. Physical Exam: RUE:Splint/post op dressing clean dry and intact with finger tips exposed. Middle digit tip well perfused with <3 second cap refill, insensate. Small digit will perfused with sensation intact. Index finger tip well perfused with sensation intact, thumb tip well perfused with sensation intact. Impression: s/p 1.) ORIF right thumb intra-articular proximal phalanx fracture, displaced, open. 2.) Closed treatment with manipulation right thumb distal phalanx fracture, displaced. 3.) Closed treatment with manipulation right index finger metacarpal neck fracture, open. 4.) ORIF right index finger intra-articular proximal phalanx fracture, displaced, open. 5.) ORIF right middle finger intra-articular metacarpal head fracture, displaced, open. 6.) ORIF right middle finger intra-articular proximal phalanx fracture, displaced, open. 7.) ORIF right ring finger intra-articular proximal phalanx fracture, displaced, open. 8.) Irrigation and debridement of 21cm complex right hand laceration with debridement of bone, soft tissue, and muscle. 9.) Right ring finger amputation. 10.) Constipation Plan: Today he is doing well although he did have trouble sleeping due to pain overnight. He is afebrile and in good spirits, discussion regarding future treatment was had with patient and who is at [facility] this morning. We are still waiting bed availability at [facility] for transfer due to need of future soft tissue reconstruction. In the mean time, we are tentatively planning for repeat right hand I&D this afternoon if he has not been transferred at that time. Discussion was had with case management and he is currently next in line for bed availability at [facility] and they predict he will be transferred this afternoon. We will plan to keep the patient on antibiotics due to the open nature and contamination of his wound. Continue to elevate the RUE. In regards to the constipation, additional bowel stimulation is ordered with Milk of Magnesium in addition to the docusate and limitation of narcotics if possible. We will continue to closley monitor if any bowel movements occur. Patient is currently NPO and lovenox is held for possible OR this afternoon if no transfer has occurred at that time. -Masoud Sharma DO Orthopedic Hand/Upper Extremity Surgeon Objective - Vital Signs Vital signs: Vital Signs Temp 98.4 F 08/20/21 08:00 Pulse 76 08/20/21 08:00 Resp 18 08/20/21 08:00 BP 135/76 08/20/21 08:00 Pulse Ox 91 L 08/20/21 08:00 Intake & Output 08/19/21 08/20/21 08/20/21 18:59 06:59 18:59 Other: Voiding Method Urinal # Voids 4 2 - Labs CBC & Chem 7: 08/20/21 06:44 08/20/21 06:44 Labs: Abnormal Lab Results - Last 24 Hours (Table) 08/20/21 08/20/21 Range/Units 06:44 06:44 WBC 10.9 H (3.8-10.6) k/uL RBC 3.58 L (4.30-5.90) m/uL Hgb 11.4 L (13.0-17.5) gm/dL Hct 35.5 L (39.0-53.0) % BUN 8 L (9-20) mg/dL Creatinine 0.64 L (0.66-1.25) mg/dL Glucose 108 H (74-99) mg/dL
[2021-08-20] MEDS ORDERED: VANCOMYCIN IV PER PHARMACY 1 EACH MISC MISCELLANE SCH (11:30)
[2021-08-20] MEDS: VANCOMYCIN 1,500 MG in SODIUM CHLORIDE 0.9% 250 ML IVPB SCH ×2 (12:13→23:21)
[2021-08-20] MEDS ORDERED: LACTATED RINGERS 1,000 ML IV ONE ×2 (14:42→17:12)
[2021-08-20] MEDS ORDERED: ONDANSETRON 4 MG/2 ML VIAL ONE (15:06)
[2021-08-20] MEDS ORDERED: ONDANSETRON 4 MG/2 ML VIAL IVP ONE (15:11)
[2021-08-20] MEDS ORDERED: DEXAMETHASONE SOD PHOSPHATE 4 MG/ML 1 ML VIAL IVP ONE (15:11)
[2021-08-20] MEDS ORDERED: fentaNYL (PF) 50 MCG/ML 2 ML AMP IVP ONE (15:37)
[2021-08-20] MEDS ORDERED: MIDAZOLAM 2 MG/2 ML VIAL IVP ONE (15:37)
[2021-08-20] MEDS ORDERED: fentaNYL (PF) 50 MCG/ML 2 ML AMP ONE (16:44)
[2021-08-20] MEDS ORDERED: PROPOFOL 10 MG/ML 20 ML VIAL IV ONE (16:44)
[2021-08-20] MEDS ORDERED: SODIUM CHLORIDE 0.9% (PF) 10 ML VIAL ONE (16:44)
[2021-08-20] MEDS ORDERED: MIDAZOLAM 2 MG/2 ML VIAL ONE (16:44)
[2021-08-20] MEDS ORDERED: ROPIVACAINE 5 MG/ML 30 ML VIAL ONE (16:44)
[2021-08-20] MEDS ORDERED: BACITRACIN ZINC 500 UNIT/GM OINT 28.4 GM TUBE TOPICAL ONE (17:35)
[2021-08-20 18:26] VITALS: RESP 16
[2021-08-20] MEDS ORDERED: ENOXAPARIN 30 MG/0.3 ML SYRINGE SQ SCH (19:15)
--- NOTE | 2021-08-20 19:32 | P.ANPRN ---
Procedure Note - Anesthesia - Nerve Block Performed Right Axillary Single Time Out Performed: Yes (1536) Date of Procedure: 08/20/21 Procedure Start Time: 15:37 Procedure Stop Time: 15:43 Location of Patient: PreOp Indication: Analgesia (Regional anesthesia for procedure with MAC), Requested by Surgeon Specifically requested for management of pain by DrLoy: Masoud Sharma Sedation Type: Sedate with meaningful contact maintained Preparation: Sterile Prep Position: Supine Catheter: None Needle Types: Pajunk Needle Gauge: 21 Ultrasound used to visualize needle placement: Yes Ultrasound used to observe medication spread: Yes Injectate: 0.5% Ropivacaine (see comment for volume) (7.5 cc + NACL PF 2.5CC each of the four nerves) Blood Aspirated: No Pain Paresthesia on Injection Noted: No Resistance on Injection: Normal Image Stored and Saved: Yes Events: Uneventful and Well Tolerated
--- NOTE | 2021-08-20 20:08 | P.OP ---
Date of Procedure: 08/20/21 Preoperative Diagnosis: 1.) Right hand crush injury Postoperative Diagnosis: 1.) Right hand crush injury Procedure(s) Performed: 1.) Right hand irrigation and debridement of nonviable skin, muscle, and fat. Anesthesia: regional Surgeon: Masoud Sharma Estimated Blood Loss (ml): 10 Pathology: other (Deep palmar tissue culture x1) Condition: stable Disposition: PACU Description of Procedure: This is a 51 year old right hand dominant male who experienced a complex crush injury to his right hand at work when an excavator bucket crushed his hand on a construction site on 08/16/21. He was seen in the emergency department initially where antibiotics, tetanus and bedside irrigation was performed for his complex hand injury with multiple open fractures with severe contamination. Due to the amount of contamination and open nature of his injuries he was taken to the operating room the same night for surgical intervention where right hand I&D and ORIF of his multiple fractures were performed. Repeat I&D was performed on POD 2 where right ring finger amputation was performed. Today he returns to the operating room for repeat I&D as his zone of injury continues to demarcate from the crushing mechanism. Risks and benefits of surgery were discussed with the patient including bleeding, damage to surrounding tissue, infection, need for further surgery, possible loss of digit/limb, as well as risks of anesthesia including pulmonary embolism and even and the patient wished to proceed with surgical intervention. The patients was seen in the pre-operative area by myself. Consent and H&P were completed and updated. The correct extremity was marked in the pre-operative area by myself and all other questions were answered. Patient received a pre-operative nerve block for pain control. Operative Narrative: The patient was brought to the operating room by the department of anesthesia. He remained on his hospital bed and a rolling hand table was brought to the side of the operative extremity. The patient was then drifted off to sleep by the department of anesthesia. A nonsterile tourniquet was then applied to the operative extremity and the right upper extremity was then prepped and draped in normal sterile fashion. Pre-operative time out was performed indicating the correct patient, procedure and laterality. All in the room agreed. The patient has been on scheduled Vanco/Zosyn since his first surgery on 08/16/21. Previously placed sutures on volar and dorsal skin were removed and wound edges were spread with blunt tenotomy scissors. There appeared to be no gross purulence present but a serosanguinous appearance to volar palmar tissue was present along with a foul smelling odor. The previously placed filet flap created from the dorsal skin of the amputated ring finger was intact although mottled in appearance. 3L of of sterile saline hung to gravity was used to further irrigate the wounds volarly and dorsally. Upon further dissection the neurovascular bundles to the index finger were identified and still found to be intact. The radial neurovascular bundle to the middle finger appeared deteriorated with evidence of segmental crush injuries. Overall appearance of the middle finger volarly revealed dusky volar tissue to the level of the PIP joint crease overlying FDP/FDS tendons with viable tissue distal to the PIP joint crease although cap refill continued to be sluggish. Portion of the FDP/FDS tendons of the middle finger at the level of the distal palmar crease are lacking soft tissue coverage. Dorsal skin appearance was well vascularized. A2 yonathan over the middle finger was found to be mottled. Non viable surrounding volar adipose tissue was removed. Wound edges were then approximated where possible with loose 4-0 nylon suture. Sterile adaptic/bacitracin was applied over area of soft tissue defect to keep a moist wound bed. Large bulky splint was then applied consisting of fluffs, cast padding, and loose zack wrap around the extremity. The patient was then woken by the department of anesthesia and transferred to PACU in stable condition. Post operative plan: The patient will be monitored in the hospital and will continue post operative antibiotics (Vanco/Zosyn) due to the open nature of his wound. No gross purulence was appreciated during today's surgery. He is still at a very high risk of infection. We are still awaiting bed availability for transfer to [facility] for definitive management and ultimate soft tissue coverage. Overall prognosis for the middle finger is poor due to continued sluggish cap refill and the direct crush injury to the neurovascular bundles. I anticipate at least 1 to 2 more debridements may possibly be needed prior to soft tissue coverage. The dressing may be re-enforced as needed over the next 24 hours and I anticipate pain control in the form of oral and IV medication will be needed after the post operative block wears off. Masoud Sharma DO Orthopedic Hand/Upper Extremity Surgeon
[2021-08-21] MEDS: SODIUM CHLORIDE 0.9% 1,000 ML IV SCH ×3 (00:33→16:46)
[2021-08-21] MEDS: PIPERACILLIN-TAZOBACTAM 3.375 GM in SODIUM CHLORIDE 0.9% 100 ML IVPB SCH ×3 (01:32→16:46)
[2021-08-21] MEDS: HYDROmorphone 1 MG/ML 1 ML SYRINGE IVP PRN ×5 (05:13→17:35)
[2021-08-21] MEDS: VANCOMYCIN 1,500 MG in SODIUM CHLORIDE 0.9% 250 ML IVPB SCH ×2 (05:16→11:32)
[2021-08-21 06:38] LABS: African American GFR (CKD) >90 (>60 ml/min/1.73 sqM); Anion Gap 5 mmol/L; Blood Urea Nitrogen 14 mg/dL (9-20); Calcium 8.8 mg/dL (8.4-10.2); Carbon Dioxide 28 mmol/L (22-30); Chloride 105 mmol/L (98-107); Glucose 121 mg/dL (74-99); Non-African American GFR(CKD) >90 (>60 ml/min/1.73 sqM); Potassium 4.5 mmol/L (3.5-5.1); Sodium 138 mmol/L (137-145)
[2021-08-21] MEDS: SENNOSIDES-DOCUSATE SODIUM 1 EACH TAB PO SCH (06:47)
[2021-08-21] MEDS: MELOXICAM 7.5 MG TAB PO SCH (06:47)
[2021-08-21] MEDS: PREGABALIN 75 MG CAP PO SCH (06:47)
[2021-08-21] MEDS: NICOTINE 21MG/24HR PATCH TRANSDERM SCH (06:49)
--- NOTE | 2021-08-21 08:36 | P.PN ---
Subjective Progress Note Date: 08/21/21 Principal diagnosis: Right hand crush injury 51 year old male now post op day 1& 3 & 5 after undergoing irrigation, debridment and ORIF of multiple hand fractures and right ring finger amputation after a severe crush injury to the right hand from an excavator with extensive contamination. His pain level is control under control and he has been on vancomycin/zosyn since POD 1 due to the severe contamination and current open nature of his surgical site. He has been elevating the upper extremity. He states he is passing gas but has not had a bowel movement yet, he denies any a bdominal pain but feels like he may have to make a bowel movement soon. Physical Exam: RUE:Splint/post op dressing clean dry and intact with finger tips exposed. Middle digit tip dorsal skin perfused with sluggish cap refill, insensate. Small digit will perfused with sensation intact. Index finger tip well perfused with sensation intact, thumb tip well perfused with sensation intact. Impression: s/p 1.) ORIF right thumb intra-articular proximal phalanx fracture, displaced, open. 2.) Closed treatment with manipulation right thumb distal phalanx fracture, displaced. 3.) Closed treatment with manipulation right index finger metacarpal neck fracture, open. 4.) ORIF right index finger intra-articular proximal phalanx fracture, displac ed, open. 5.) ORIF right middle finger intra-articular metacarpal head fracture, displaced, open. 6.) ORIF right middle finger intra-articular proximal phalanx fracture, displaced, open. 7.) ORIF right ring finger intra-articular proximal phalanx fracture, displaced, open. 8.) Irrigation and debridement of 21cm complex right hand laceration with debridement of bone, soft tissue, and muscle. 9.) Right ring finger amputation. 10.) Constipation Plan: Repeat I&D performed last night revealed no purulence and no obvious signs of infection, however his zone of injury continues to declare itself. We are still waiting bed availability at [facility] for transfer due to need of future soft tissue reconstruction. No surgical intervention needed today due to stable appearance of his wound at most recent I&D on 08/20/21. Continue to elevate extremity, pain control, follow intra-operative cultures, continue antibiotics and await update on transfer service. -Masoud Sharma DO Orthopedic Hand/Upper Extremity Surgeon Objective - Vital Signs Vital signs: Vital Signs Temp 98.7 F 08/21/21 07:29 Pulse 78 08/21/21 07:29 Resp 16 08/21/21 07:29 BP 105/56 08/21/21 07:29 Pulse Ox 93 L 08/21/21 07:29 Intake & Output 08/20/21 08/21/21 08/21/21 18:59 06:59 18:59 Intake Total 1200 Output Total 10 Balance 1190 Weight 87.997 kg Intake: IV 1200 Output: Estimated Blood Loss 10 Other: Voiding Method Urinal Urinal # Voids 1 - Labs CBC & Chem 7: 08/20/21 06:44 08/21/21 05:35 Labs: Abnormal Lab Results - Last 24 Hours (Table) 08/21/21 Range/Units 05:35 Glucose 121 H (74-99) mg/dL Microbiology - Last 24 Hours (Table) 08/20/21 17:45 Anaerobic Culture - Preliminary Hand - Right 08/20/21 17:45 Wound Culture - Preliminary Hand - Right
[2021-08-21 10:35] LABS: HCT 36.5 % (39.6-50.0); HGB 11.3 g/dL (13.0-17.0); MCH 30.4 pg (27.0-32.0); MCV 98.1 fL (80.0-97.0); Mean Platelet Volume 10.7 fL (9.5-12.2); Platelet Count 316 X 10*3/uL (140-440); RBC 3.72 X 10*6/uL (4.40-5.60); RDW 13.8 % (11.5-14.5); WBC 11.49 X 10*3/uL (4.50-10.00)
[2021-08-21 14:15] VITALS: BP 115/68; PULSE 80; TEMP 98
[2021-08-22] MEDS ORDERED: VANCOMYCIN TROUGH DUE 1 EACH MISC MISCELLANE ONE (11:00)
--- NOTE | 2021-08-26 06:26 | CDI ---
Documentation Clarification Form Date: 08/26/21 From: Claudine Enciso Admit Date: 08/16/2021 12:11:00 PM Patient Name: Mason Cervantes Visit Number: [id number] Discharge Date: 08/21/2021 05:42:00 PM ATTENTION: The Clinical Documentation Specialists (CDI) and [facility] Coding Staff appreciate your assistance in clarifying documentation. Please respond to the clarification below the line at the bottom and electronically sign. The CDI & [facility] Coding staff will review the response and follow-up if needed. Please note: Queries are made part of the Legal Health Record. If you have any questions, please contact the author of this message via ITS. Dr. Masoud Sharma, Right hand I D with debridement of nonviable bone, muscle, tendon and soft tissue is documented in the 08/18 operative report. Additional clarification regarding the procedure is requested. History/Risk Factors: Crush injury to right hand Clinical Indicators: Right ring finger gangrene Treatment: Right hand I D with debridement of nonviable bone, muscle, tendon and soft tissue. Right ring finger amputation at level of MCP joint documented in the 08/18 operative report. Please clarify the type of procedure performed: [ x ] Excisional debridement (the removal of necrotic, devitalized tissue or slough by means of cutting away of tissue) [ ] Non-excisional debridement (the removal of necrotic, devitalized tissue or slough by means of flushing, brushing, or washing. (Irrigation) [ ] Other; please specify [ ] Unable to determine Five elements required for accurate and compliant documentation of a debridement: Technique used (e.g., excisional, excised, cutting, brushing, jet lavage etc.) Instrument(s) used (e.g., scalpel, curette, etc.) Nature of the tissue removed (e.g., necrotic, devitalized tissues, non-viable tissue, etc.) Appearance and size of the wound (e.g., down to fresh bleeding tissue, 7cm x 10cm, etc.) Depth of the debridement* (e.g., skin, subcutaneous tissue, fascia, muscle, bone, etc.) MTDD
--- NOTE | 2021-08-26 06:33 | CDI ---
Documentation Clarification Form Date: 08/26/2021 06:27:00 AM From: Claudine Enciso Admit Date: 08/16/2021 12:11:00 PM Patient Name: Mason Cervantes Visit Number: [id number] Discharge Date: 08/21/2021 05:42:00 PM ATTENTION: The Clinical Documentation Specialists (CDI) and [facility] Coding Staff appreciate your assistance in clarifying documentation. Please respond to the clarification below the line at the bottom and electronically sign. The CDI & [facility] Coding staff will review the response and follow-up if needed. Please note: Queries are made part of the Legal Health Record. If you have any questions, please contact the author of this message via ITS. Dr. Masoud Sharma, Right hand I D with debridement of nonviable skin muscle and fat is documented in the 08/20 operative report. Additional clarification regarding the procedure is requested. History/Risk Factors: Crush injury to right hand Clinical Indicators: Right ring finger gangrene Treatment: Right hand I D with debridement of nonviable skin, muscle and fat on 08/20. Please clarify the type of procedure performed: [x ] Excisional debridement (the removal of necrotic, devitalized tissue or slough by means of cutting away of tissue) [ ] Non-excisional debridement (the removal of necrotic, devitalized tissue or slough by means of flushing, brushing, or washing. (Irrigation) [ ] Other; please specify [ ] Unable to determine Five elements required for accurate and compliant documentation of a debridement: Technique used (e.g., excisional, excised, cutting, brushing, jet lavage etc.) Instrument(s) used (e.g., scalpel, curette, etc.) Nature of the tissue removed (e.g., necrotic, devitalized tissues, non-viable tissue, etc.) Appearance and size of the wound (e.g., down to fresh bleeding tissue, 7cm x 10cm, etc.) Depth of the debridement* (e.g., skin, subcutaneous tissue, fascia, muscle, bone, etc.) MTDD
== END 2021-08-21 17:42 | disposition short-term general hospital (02) | DRG 513 ==
LOC: EC 11:24 → SUPCPDRO 11:24 → 4SSUR 12:11
PROVIDERS: ADMIT Orthopaedic Surgery Hand Surgery; ATTEND Orthopaedic Surgery Hand Surgery
PROC: 0PST04Z Reposition Right Finger Phalanx with Internal Fixation Device, Open Approach (ICD-10-PCS; principal; 2021-08-16 11:30)
PROC: 0PSR04Z Reposition Right Thumb Phalanx with Internal Fixation Device, Open Approach (ICD-10-PCS; principal; 2021-08-16 11:30)
PROC: 0PSRXZZ Reposition Right Thumb Phalanx, External Approach (ICD-10-PCS; principal; 2021-08-16 11:30)
PROC: 0PSP04Z Reposition Right Metacarpal with Internal Fixation Device, Open Approach (ICD-10-PCS; principal; 2021-08-16 11:30)
PROC: 0PSPXZZ Reposition Right Metacarpal, External Approach (ICD-10-PCS; principal; 2021-08-16 11:30)
PROC: 0X6S0Z0 Detachment at Right Ring Finger, Complete, Open Approach (ICD-10-PCS; 2021-08-18)
PROC: 0PBT0ZZ Excision of Right Finger Phalanx, Open Approach (ICD-10-PCS; 2021-08-18)
PROC: 0KBC0ZZ Excision of Right Hand Muscle, Open Approach (ICD-10-PCS; 2021-08-20)
DX: S62.511B Displaced fracture of proximal phalanx of right thumb, initial encounter for open fracture (principal); S62.330B Displaced fracture of neck of second metacarpal bone, right hand, initial encounter for open fracture; I96 Gangrene, not elsewhere classified; S65.514A Laceration of blood vessel of right ring finger, initial encounter; Z20.822 Contact with and (suspected) exposure to COVID-19; S62.521B Displaced fracture of distal phalanx of right thumb, initial encounter for open fracture; S62.610B Displaced fracture of proximal phalanx of right index finger, initial encounter for open fracture; S62.612B Displaced fracture of proximal phalanx of right middle finger, initial encounter for open fracture; S62.632B Displaced fracture of distal phalanx of right middle finger, initial encounter for open fracture; S62.614B Displaced fracture of proximal phalanx of right ring finger, initial encounter for open fracture; S64.21XA Injury of radial nerve at wrist and hand level of right arm, initial encounter; S67.21XA Crushing injury of right hand, initial encounter; K59.00 Constipation, unspecified; F17.210 Nicotine dependence, cigarettes, uncomplicated; Z79.1 Long term (current) use of non-steroidal anti-inflammatories (NSAID); Z87.828 Personal history of other (healed) physical injury and trauma; Z86.14 Personal history of Methicillin resistant Staphylococcus aureus infection; Z87.19 Personal history of other diseases of the digestive system; Z98.818 Other dental procedure status; Z98.890 Other specified postprocedural states; Z87.2 Personal history of diseases of the skin and subcutaneous tissue; W23.0XXA Caught, crushed, jammed, or pinched between moving objects, initial encounter; Y92.69 Other specified industrial and construction area as the place of occurrence of the external cause; Y93.H3 Activity, building and construction; Y99.0 Civilian activity done for income or pay
CPT/HCPCS: 36415; 64415; 71045; 72170; 76942; 80048; 80053; 80202; 80306; 80320; 81003; 85025; 85027; 85610; 85730; 86850; 86900; 86901; 87070; 87075; 87077; 87186; 87205; 87635; 90471; 90715; 93005; 96365; 96375; 99284

== ENCOUNTER 2021-09-13 16:52 | Emergency (ER) | payer BC ==
[2021-09-13 17:49] VITALS: BP 156/85; RESP 18; TEMP 97.6
[2021-09-13 18:00] VITALS: PULSE 66
[2021-09-13] MEDS ORDERED: LEVOFLOXACIN 750MG-D5W PMX 750 MG in DEXTROSE/WATER 1 150ML.BAG IVPB STA (20:16)
--- NOTE | 2021-09-13 21:15 | ED ---
General Adult HPI - General Chief complaint: Allergic Reaction Stated complaint: Chest pain,Pain All over, nausea, needs antibotics Time Seen by Provider: 09/13/21 18:59 Source: patient Mode of arrival: ambulatory Limitations: no limitations - History of Present Illness Initial comments: This 51-year-old male presents with a complaint of possible ALLERGIC reaction to an antibiotic. He states that he had a severe traumatic injury to his right hand approximately one month ago. He initially was seen at our hospital. He had one finger amputated. He obtained an infection in his hand and was transferred to [facility] in [place] and had another finger amputated. He apparently had his right middle finger and right ring finger amputated. He states that he was discharged from [facility] and was placed on cefepime. He states that he started the cefepime yesterday and within minutes of taking it he developed diffuse body pains and felt as though he could barely move. He followed up with his orthopedic/plastic surgeon today and they told him to stop taking this medication and to throw it away. He was not started on any new medication. They were told to come to the emergency department for further evaluation. He presents in a large dressing to his right hand. He is essentially here for IV antibiotics. He does have a PICC line in place. He denies any fevers or chills. His pain seems to be controlled. No other complaints or modifying factors. - Related Data Home Medications Medication Instructions Recorded Confirmed Acetaminophen Tab [Tylenol] 975 mg PO TID@0600,1400,2200 PRN 09/13/21 09/13/21 Gabapentin [Neurontin] 300 mg PO TID 09/13/21 09/13/21 Ibuprofen [Motrin] 800 mg PO TID PRN 09/13/21 09/13/21 Methocarbamol [Robaxin-750] 750 mg PO QID 09/13/21 09/13/21 Metoprolol Tartrate [Lopressor] 25 mg PO BID@1000,2200 09/13/21 09/13/21 Sennosides/Docusate Sodium 1 tab PO HS 09/13/21 09/13/21 [Senna-S 8.6-50 mg Tablet] metroNIDAZOLE [Flagyl] 500 mg PO TID 09/13/21 09/13/21 oxyCODONE HCL [oxyCODONE HCL (IR)] 10 - 15 mg PO Q4H PRN 09/13/21 09/13/21 Allergies Allergy/AdvReac Type Severity Reaction Status Date / Time No Known Allergies Allergy Verified 09/13/21 20:33 Review of Systems ROS Statement: Those systems with pertinent positive or pertinent negative responses have been documented in the HPI. ROS Other: All systems not noted in ROS Statement are negative. Past Medical History Past Medical History: No Reported History Additional Past Medical History / Comment(s): CONSTIPATION. UMBILICAL HERNIA. History of Any Multi-Drug Resistant Organisms: MRSA Date of last positivie culture/infection: 08/14/20 MDRO Source:: MRSA BUTTOCK Additional Past Surgical History / Comment(s): FACIAL SURGERY D/T ACCIDENT. EXC WISDOM TEETH. right arm, lipoma, scope right knee, hernia repair Past Anesthesia/Blood Transfusion Reactions: No Reported Reaction Past Psychological History: No Psychological Hx Reported Smoking Status: Current every day smoker Past Alcohol Use History: Occasional Past Drug Use History: None Reported - Past Family History Mother Family Medical History: No Reported History General Exam - General Exam Comments Initial Comments: GENERAL: The patient is well nourished and well hydrated. VITAL SIGNS: Heart rate, blood pressure, respiratory rate reviewed as recorded in nurse's notes. EYES: Pupils are round and reactive. Extraocular movements are intact. No conjunctival / lid redness or swelling. ENT: No external evidence of injury, swelling, or ecchymosis. Airway is patent. Throat is clear. NECK: Nontender. No swelling or evidence of injury. No subcutaneous emphysema. Trachea is midline. No thyroid mass. HEART: Regular rate and rhythm. Good peripheral pulses. LUNGS/CHEST: Breath sounds clear and equal bilaterally. No rales, rhonchi, or wheezes. No ecchymosis, subcutaneous emphysema, or tenderness. ABDOMEN: Abdomen soft without tenderness. No palpable masses or organomegaly. No peritoneal signs. No abdominal wall swelling or ecchymosis. EXTREMITIES: Patient is in a complex dressing to the right hand. Normal muscle tone and function. No thoracolumbar tenderness. NEUROLOGIC: Sensation is grossly intact. Cranial nerve exam reveals face is symmetrical, tongue is midline, speech is clear. SKIN: No abrasions or ecchymosis is noted. No induration or masses noted. PSYCHIATRIC: Alert and oriented. Appropriate behavior and judgment. Limitations: no limitations Course Vital Signs 09/13/21 09/13/21 17:46 17:58 Temperature 97.6 F Pulse Rate 63 Pulse Rate [ 66 Pulse Oximetery ] Respiratory 18 Rate Blood Pressure 156/85 O2 Sat by Pulse 97 Oximetry Medical Decision Making - Medical Decision Making The patient was seen and examined. Old records were reviewed. This does show evidence of a culture report which is positive with sensitivity. It is felt as though he should stop the Septra p.m. as he seems to have an adverse reaction to this medication. It appears as though he is sensitive to Levaquin. He is given 750 mg of Levaquin intravenously in the emergency department. It is felt as though he would benefit from calling his infectious disease doctor to obtain additional Levaquin intravenous doses or other IV antibiotics sent to his house. I am unaware of how to set up this service at home delivery for IV antibiotics. It is also felt as though they're infectious disease doctor should be involved in this decision. The patient is agreeable to this plan and leaves in no distress. Disposition Clinical Impression: Infection of right hand, History of amputation of finger of right hand Disposition: HOME SELF-CARE Condition: Good Instructions (If sedation given, give patient instructions): Cellulitis (ED) Additional Instructions: Please call your infectious disease doctor tomorrow to set up additional intravenous antibiotics for your PICC line. Is patient prescribed a controlled substance at d/c from ED?: No Referrals: Abdullahi Douglass MD [Primary Care Provider] - 1-2 days Time of Disposition: 21:14
== END 2021-09-13 21:52 | disposition home or self-care (01) ==
LOC: EC 16:52
DX: L08.9 Local infection of the skin and subcutaneous tissue, unspecified (principal); R07.9 Chest pain, unspecified; F17.200 Nicotine dependence, unspecified, uncomplicated; Z89.021 Acquired absence of right finger(s)
CPT/HCPCS: 99284; 96365; 96366; J1956

== ENCOUNTER 2021-09-14 16:32 | Inpatient (IN) | payer BC, OTHER ==
[2021-09-14] MEDS ORDERED: MORPHINE SULFATE 4 MG/ML SYRINGE IV STA (17:03)
--- NOTE | 2021-09-14 17:21 | ED ---
General Adult HPI - General Chief complaint: Extremity Injury, Upper Stated complaint: Fever, poss infection, IHS Time Seen by Provider: 09/14/21 16:36 Source: patient, EMS Mode of arrival: EMS Limitations: no limitations - History of Present Illness Initial comments: Dictation was produced using Fund[employer] dictation software. please excuse any grammatical, word or spelling errors. Chief Complaint: 51 y Old male presents with generalized weakness, myalgias History of Present Illness: She is a 51-year-old male patient recently had right upper extremity surgery after catastrophic right upper extremity injury. In August patient suffered from crush injury. 7 multiple issues postoperatively secondary to abscesses and infections. He has had multiple irrigations and debridement of the areas. Patient states that over the last 2-3 days she's been having worsening myalgias. Denies any respiratory symptoms. States that he is having pain in his hand. The ROS documented in this emergency department record has been reviewed and confirmed by me. Those systems with pertinent positive or negative responses have been documented in the HPI. All other systems are other negative and/or noncontributory. PHYSICAL EXAM: General Impression: Alert and oriented x3, not in acute distress HEENT: Normocephalic atraumatic, extra-ocular movements intact, pupils equal and reactive to light bilaterally, mucous membranes moist. Cardiovascular: Heart regular rate and rhythm Chest: Able to complete full sentences, no retractions, no tachypnea Abdomen: abdomen soft, non-tender, non-distended, no organomegaly Musculoskeletal: Pulses present and equal in all extremities, no peripheral edema right upper extremity: No axillary lymphadenopathy, surgical sites clean dry and intact without any drainage no cellulitis, no malodorous discharge Motor: no focal deficits noted Neurological: CN II-XII grossly intact, no focal motor or sensory deficits noted Skin: Intact with no visualized rashes Psych: Anxious ED course: 51-year-old male presents emergency for myalgias and possible constitutional symptoms. Since August patient has multiple operations on his right upper extremity. Vital signs upon arrival are within acceptable limits. Surgical sites clean dry and intact. Patient is left upper shoulder a PICC line. He administers IV antibiotics at home. Laboratory evaluation obtained. CBC, metabolic panel is unremarkable. Co ronavirus is negative. Patient reevaluated at the bedside 5 is stable medical condition. His wound appears to be stable. He has normal labs and normal vitals. Family bedside reports that they do not have good follow-up for his current care. Sounds like they're having trouble following up with the specialist that her managing his antibiotics. He states that he's been having issues with cefepime causing burning to his arm. He also got some Levaquin thought that he had adverse reaction to it. Family is upset with the care they received at [facility]. They're requesting observation admission with consults to specialist to establish care here in our facility. I believe this is reasonable approach given that patient has an issue requiring antibiotic treatment. He saw the plastic surgeon yesterday who told family that his wounds look great. I believe patient would benefit from observation admission with consultation to infectious disease and hand specialist. EKG interpretation: Ventricular rate 51, sinus bradycardia, KY interval 190, QRS 96, QTC 405. No KY prolongation, no QTC prolongation, no ST or T-wave changes noted. Overall, this EKG is unremarkable - Related Data Home Medications Medication Instructions Recorded Confirmed Acetaminophen Tab [Tylenol] 325 - 975 mg PO TID@0600,1400,2200 09/13/21 09/14/21 PRN Gabapentin [Neurontin] 900 mg PO TID 09/13/21 09/14/21 Ibuprofen [Motrin] 800 mg PO TID PRN 09/13/21 09/14/21 Methocarbamol [Robaxin-750] 750 mg PO QID 09/13/21 09/14/21 Metoprolol Tartrate [Lopressor] 25 mg PO BID@1000,2200 09/13/21 09/14/21 Sennosides/Docusate Sodium 1 tab PO HS 09/13/21 09/14/21 [Senna-S 8.6-50 mg Tablet] metroNIDAZOLE [Flagyl] 500 mg PO TID 09/13/21 09/14/21 oxyCODONE HCL [oxyCODONE HCL (IR)] 10 - 15 mg PO Q4H PRN 09/13/21 09/14/21 Bacitracin/Polymyx Oint 1 applic TOPICAL BID 09/14/21 09/14/21 [Polysporin Oint] Ipratropium/Albuterol Sulfate 1 puff INHALATION RT-QID PRN 09/14/21 09/14/21 [Combivent Respimat Inhaler] Magnesium Oxide [Mag-Ox] 400 mg PO BID 09/14/21 09/14/21 Allergies Allergy/AdvReac Type Severity Reaction Status Date / Time cefepime [From Maxipime] AdvReac Abdominal Verified 09/14/21 17:05 Pain Review of Systems ROS Statement: Those systems with pertinent positive or pertinent negative responses have been documented in the HPI. ROS Other: All systems not noted in ROS Statement are negative. Past Medical History Past Medical History: No Reported History Additional Past Medical History / Comment(s): CONSTIPATION. UMBILICAL HERNIA. History of Any Multi-Drug Resistant Organisms: MRSA Date of last positivie culture/infection: 08/14/20 MDRO Source:: MRSA BUTTOCK Past Surgical History: Orthopedic Surgery Additional Past Surgical History / Comment(s): FACIAL SURGERY D/T ACCIDENT. EXC WISDOM TEETH. right arm, lipoma, scope right knee, hernia repair Past Anesthesia/Blood Transfusion Reactions: No Reported Reaction Past Psychological History: No Psychological Hx Reported Smoking Status: Current every day smoker Past Alcohol Use History: Occasional Past Drug Use History: None Reported - Past Family History Mother Family Medical History: No Reported History General Exam Limitations: no limitations Course Vital Signs 09/14/21 09/14/21 16:48 20:03 Temperature 98.4 F Pulse Rate 65 59 L Respiratory 18 18 Rate Blood Pressure 157/104 123/78 O2 Sat by Pulse 100 99 Oximetry Medical Decision Making - Lab Data Result diagrams: 09/14/21 17:53 09/14/21 17:53 Lab Results 09/14/21 09/14/21 09/14/21 Range/Units 17:53 17:53 17:53 WBC 8.5 (3.8-10.6) k/uL RBC 4.23 L (4.30-5.90) m/uL Hgb 12.7 L (13.0-17.5) gm/dL Hct 40.0 (39.0-53.0) % MCV 94.6 (80.0-100.0) fL MCH 30.1 (25.0-35.0) pg MCHC 31.8 (31.0-37.0) g/dL RDW 13.2 (11.5-15.5) % Plt Count 250 (150-450) k/uL MPV 7.6 Neutrophils % 61 % Lymphocytes % 20 % Monocytes % 6 % Eosinophils % 9 % Basophils % 1 % Neutrophils # 5.2 (1.3-7.7) k/uL Lymphocytes # 1.7 (1.0-4.8) k/uL Monocytes # 0.5 (0-1.0) k/uL Eosinophils # 0.8 H (0-0.7) k/uL Basophils # 0.1 (0-0.2) k/uL Sodium 138 (137-145) mmol/L Potassium 4.7 (3.5-5.1) mmol/L Chloride 106 (98-107) mmol/L Carbon Dioxide 26 (22-30) mmol/L Anion Gap 6 mmol/L BUN 12 (9-20) mg/dL Creatinine 0.51 L (0.66-1.25) mg/dL Est GFR (CKD-EPI)AfAm >90 (>60 ml/min/1.73 sqM) Est GFR (CKD-EPI)NonAf >90 (>60 ml/min/1.73 sqM) Glucose 114 H (74-99) mg/dL Calcium 9.6 (8.4-10.2) mg/dL Coronavirus (PCR) Not Detected (Not Detectd) Disposition Clinical Impression: Hand pain Disposition: ADMITTED IP TO THIS HOSP Condition: Fair Referrals: Abdullahi Douglass MD [Primary Care Provider] - 1-2 days
[2021-09-14 18:14] LABS: Basophils # (A) 0.1 k/uL (0-0.2); Basophils % (A) 1 %; Eosinophils # (A) 0.8 k/uL (0-0.7); Eosinophils % (A) 9 %; HGB 12.7 gm/dL (13.0-17.5); Lymphocytes # (A) 1.7 k/uL (1.0-4.8); Lymphocytes % (A) 20 %; MCH 30.1 pg (25.0-35.0); MCHC 31.8 g/dL (31.0-37.0); MCV 94.6 fL (80.0-100.0); Mean Platelet Volume 7.6; Monocytes # (A) 0.5 k/uL (0-1.0); Monocytes % (A) 6 %; Neutrophils # (A) 5.2 k/uL (1.3-7.7); Neutrophils % (A) 61 %; Platelet Count 250 k/uL (150-450); RBC 4.23 m/uL (4.30-5.90); RDW 13.2 % (11.5-15.5); WBC 8.5 k/uL (3.8-10.6)
[2021-09-14 18:21] LABS: African American GFR (CKD) >90 (>60 ml/min/1.73 sqM); Anion Gap 6 mmol/L; Blood Urea Nitrogen 12 mg/dL (9-20); Calcium 9.6 mg/dL (8.4-10.2); Carbon Dioxide 26 mmol/L (22-30); Chloride 106 mmol/L (98-107); Glucose 114 mg/dL (74-99); Non-African American GFR(CKD) >90 (>60 ml/min/1.73 sqM); Potassium 4.7 mmol/L (3.5-5.1); Sodium 138 mmol/L (137-145)
[2021-09-14] MEDS ORDERED: NALOXONE 0.4 MG/ML 1 ML VIAL IV PRN (20:03)
[2021-09-14] MEDS ORDERED: PIPERACILLIN-TAZOBACTAM 3.375 GM in SODIUM CHLORIDE 0.9% 100 ML IVPB STA (20:04)
[2021-09-14] MEDS ORDERED: GABAPENTIN 300 MG CAP PO STA (20:05)
[2021-09-14] MEDS: SODIUM CHLORIDE 0.9% 1,000 ML IV SCH (20:40)
[2021-09-14] MEDS: MORPHINE SULFATE 4 MG/ML SYRINGE IV PRN (20:41)
[2021-09-15] MEDS: ACETAMINOPHEN TAB 325 MG TAB PO PRN (00:44)
[2021-09-15] MEDS: MORPHINE SULFATE 4 MG/ML SYRINGE IV PRN ×6 (00:45→20:49)
[2021-09-15] MEDS: ONDANSETRON 4 MG/2 ML VIAL IVP PRN ×2 (08:35→20:49)
[2021-09-15] MEDS ORDERED: IPRATROPIUM-ALBUTEROL 3 ML NEB INHALATION PRN (09:40)
[2021-09-15] MEDS ORDERED: SENNOSIDES-DOCUSATE SODIUM 1 EACH TAB PO PRN (09:40)
--- NOTE | 2021-09-15 10:56 | P.CNOR ---
History of Present Illness - [facility] Consult date: 09/15/21 Consult reason: other (s/p right hand crush injury ) History of present illness: This is a 51-year-old male who sustained a severe crushing injury to his right hand on 08/16/2021 after an excavator crushed his hand and a contaminated environment while at work. He was taken urgently to the operating room on 08/16 for irrigation, debridement and surgical fixation of multiple open fractures to his hand and closure of his multiple open wounds. He required multiple repeat I and D's of his right hand and a right ring finger amputation during his hospital stay and ultimately was transferred to [facility] for definitive soft tissue coverage of a soft tissue defect in the palm. Over the last several weeks. The patient has undergone multiple repeat I and D's of his hand at [facility] and ultimately a middle finger amputation. Skin coverage was able to be achieved within the last week and the patient still has sutures and hardware in place. The patient was recently discharged from [facility] and was sent home with a PICC line with IV antibiotics, which he has been taking. The patient notes that the last several infusions that were given by his at home have resulted in several episodes of excruciating burning pain in the area of the left upper extremity PICC line that radiates across his chest and down to his right fingertips. He presented to the ER overnight due to these recurring episodes associated with his IV antibiotic infusions. Regarding the hand, the patient recently saw his plastic surgeon at [facility], Dr. Johnson, just this last , 09/12/2021 and he states the surgeon said his wound and hand looks great and is healing well. Patient has been doing daily dressing changes with xeroform and kerlix at home which he has been able to tolerate well. He states he would like to continue his post operative follow up in [place] due to his experience with certain staff at [facility] and due to the distance of his follow up appointment. Past Medical History Past Medical History: No Reported History Additional Past Medical History / Comment(s): CONSTIPATION. UMBILICAL HERNIA. History of Any Multi-Drug Resistant Organisms: MRSA Year Discovered:: 08/14/20 MDRO Source:: MRSA BUTTOCK Past Surgical History: Orthopedic Surgery Additional Past Surgical History / Comment(s): FACIAL SURGERY D/T ACCIDENT. EXC WISDOM TEETH. right arm, lipoma, scope right knee, hernia repair Past Anesthesia/Blood Transfusion Reactions: No Reported Reaction Past Psychological History: No Psychological Hx Reported Smoking Status: Current every day smoker Past Alcohol Use History: Occasional Past Drug Use History: None Reported - Past Family History Mother Family Medical History: No Reported History Medications and Allergies Home Medications Medication Instructions Recorded Confirmed Type Acetaminophen Tab [Tylenol] 325 - 975 mg PO TID@0600,1400,2200 09/13/21 09/14/21 History PRN Gabapentin [Neurontin] 900 mg PO TID 09/13/21 09/14/21 History Ibuprofen [Motrin] 800 mg PO TID PRN 09/13/21 09/14/21 History Methocarbamol [Robaxin-750] 750 mg PO QID 09/13/21 09/14/21 History Metoprolol Tartrate [Lopressor] 25 mg PO BID@1000,2200 09/13/21 09/14/21 History Sennosides/Docusate Sodium 1 tab PO HS 09/13/21 09/14/21 History [Senna-S 8.6-50 mg Tablet] metroNIDAZOLE [Flagyl] 500 mg PO TID 09/13/21 09/14/21 History oxyCODONE HCL [oxyCODONE HCL (IR)] 10 - 15 mg PO Q4H PRN 09/13/21 09/14/21 History Bacitracin/Polymyx Oint 1 applic TOPICAL BID 09/14/21 09/14/21 History [Polysporin Oint] Ipratropium/Albuterol Sulfate 1 puff INHALATION RT-QID PRN 09/14/21 09/14/21 History [Combivent Respimat Inhaler] Magnesium Oxide [Mag-Ox] 400 mg PO BID 09/14/21 09/14/21 History Allergies Allergy/AdvReac Type Severity Reaction Status Date / Time cefepime [From Maxipime] AdvReac Abdominal Verified 09/14/21 17:05 Pain Physical Examination Osteopathic Statement: *. No significant issues noted on an osteopathic structural exam other than those noted in the History and Physical/Consult. - Wrist & Hand right Location of pain: other (S/p Right middle and ring finger amputation. New palmar skin tissue/flap appears to be healing well, no signs of infection. Suture are intact volarly and dorsally. No purulence, erythema or asbscess present. No c repitus in hand/forearm with palpation.) Results - Labs Labs: Abnormal Lab Results - Last 24 Hours (Table) 09/14/21 09/14/21 Range/Units 17:53 17:53 RBC 4.23 L (4.30-5.90) m/uL Hgb 12.7 L (13.0-17.5) gm/dL Eosinophils # 0.8 H (0-0.7) k/uL Creatinine 0.51 L (0.66-1.25) mg/dL Glucose 114 H (74-99) mg/dL H & H 09/14/21 Range/Units 17:53 Hgb 12.7 L (13.0-17.5) gm/dL Hct 40.0 (39.0-53.0) % Result Diagrams: 09/14/21 17:53 09/14/21 17:53 Assessment and Plan Assessment: 1.) S/p Right hand crush injury requiring multiple surgeries including repeat I&Ds, right ring finger amputation at [facility] and multiple I&D's, right middle finger MCP amputation and local soft tissue coverage for palmar skin defect at [facility] 2.) PICC line left upper extremity. Plan: 1.) Case findings were discussed with the patient at length at bedside. Currently his hand is healing well and appears to be infection free. His main reasoning he states for returning to the ED were issues associated with IV antibiotic administration through his LUE PICC line. Currently there is no indication for any surgical intervention for the right hand, his wounds have adequate soft tissue coverage and we explained that they will continue to heal and granulate over the next several weeks. Patient expressed that he no longer wishes to follow up in [place] for his care and would prefer to be seen in [place] due to location and personal preference. I am agreeable with this now that the patient has adequate soft tissue coverage of the hand. Further discussion will have to be had with the [facility] team in regards to the patient's preferences for outpatient follow up. He will need to be seen in an outpatient setting by either his previous surgeon or myself in the next 10 days for suture removal and likely hand therapy initiation. Patient was agreeable with this plan of action, he is stable from an orthopedic standpoint. He may continue his d aily dressing changes as needed and may let the hand air out several times a day. We will continue to follow the patient during his hospital stay. -Masoud Sharma DO Orthopedic Hand/Upper Extremity Surgeon Time with Patient: Greater than 30
[2021-09-15] MEDS: METOPROLOL TARTRATE 25 MG TAB PO SCH ×2 (11:59→20:44)
[2021-09-15] MEDS: methocarbamoL 750 MG TAB PO SCH ×3 (13:17→20:43)
[2021-09-15] MEDS ORDERED: PIPERACILLIN-TAZOBACTAM 3.375 GM in SODIUM CHLORIDE 0.9% 100 ML IVPB STA (13:45)
[2021-09-15] MEDS: GABAPENTIN 300 MG CAP PO SCH ×2 (15:39→20:43)
--- NOTE | 2021-09-15 17:21 | P.HPIM ---
History of Present Illness H&P Date: 09/15/21 Chief Complaint: Right infection failed outpatient treatment Mr. Cervantes is a 51-year-old male with no significant past medical history coming in with a chief complaint of right hand infection. Patient had a crush injury on August in a contaminated environment while at work. Patient was taken to the OR on 08/16/2021 and had surgical fixation of the crush injury. Eventually patient required multiple I&D's along with amputation and eventually transferred to [facility]. At [facility] the patient had amputation of his middle and ring fingers. He states in the hospital for almost 3 weeks as per discussion with his daughter was at the bedside. Patient eventually was discharged on a PICC line from [facility] to be taking cefepime and Flagyl. Patient states that he took Flagyl for couple of days but on the third day he started to have shooting pain in his right hand when he was taking the antibiotics so stopped taking it for one day and came into the emergency. In the ER patient was given a dose of Levaquin and sent home. But patient came back again yesterday stating that he still has pain and cannot tolerate his antibiotics that he was discharged home on. At the time of admission patient's vital signs temperature 98.4, heart rate 63, respiratory rate 18, blood pressure 157/104 saturating 100% on room air. On reviewing the last white count of 8.5, hemoglobin and 0.7, platelets 250. Sodium 138, potassium 4.7, chloride 106, bicarb 26, BUN 12, creatinine 0.51, Torres PCR negative. Review of Systems REVIEW OF SYSTEMS: CONSTITUTIONAL: No fevers chills or rigors HEENT: No recent visual problems or hearing problems. Denied any sore throat. CARDIOVASCULAR: No chest pain, orthopnea, PND, no palpitations, no syncope. PULMONARY: No cough or difficulty in breathing GASTROINTESTINAL: No diarrhea, no nausea, no vomiting, no abdominal pain. NEUROLOGICAL: No headaches, no weakness, no numbness. HEMATOLOGICAL: Denies any bleeding or petechiae. GENITOURINARY: Denies any burning micturition, frequency, or urgency. MUSCULOSKELETAL/RHEUMATOLOGICAL: As per HPI ENDOCRINE: Denies any polyuria or polydipsia. The rest of the 14-point review of systems is negative. Past Medical History Past Medical History: No Reported History Additional Past Medical History / Comment(s): CONSTIPATION. UMBILICAL HERNIA. History of Any Multi-Drug Resistant Organisms: MRSA Date of last positivie culture/infection: 08/14/20 MDRO Source:: MRSA BUTTOCK Past Surgical History: Orthopedic Surgery Additional Past Surgical History / Comment(s): FACIAL SURGERY D/T ACCIDENT. EXC WISDOM TEETH. right arm, lipoma, scope right knee, hernia repair Past Anesthesia/Blood Transfusion Reactions: No Reported Reaction Past Psychological History: No Psychological Hx Reported Smoking Status: Current every day smoker Past Alcohol Use History: Occasional Past Drug Use History: None Reported - Past Family History Mother Family Medical History: No Reported History Medications and Allergies Home Medications Medication Instructions Recorded Confirmed Type Acetaminophen Tab [Tylenol] 325 - 975 mg PO TID@0600,1400,2200 09/13/21 09/14/21 History PRN Gabapentin [Neurontin] 900 mg PO TID 09/13/21 09/14/21 History Ibuprofen [Motrin] 800 mg PO TID PRN 09/13/21 09/14/21 History Methocarbamol [Robaxin-750] 750 mg PO QID 09/13/21 09/14/21 History Metoprolol Tartrate [Lopressor] 25 mg PO BID@1000,2200 09/13/21 09/14/21 History Sennosides/Docusate Sodium 1 tab PO HS 09/13/21 09/14/21 History [Senna-S 8.6-50 mg Tablet] metroNIDAZOLE [Flagyl] 500 mg PO TID 09/13/21 09/14/21 History oxyCODONE HCL [oxyCODONE HCL (IR)] 10 - 15 mg PO Q4H PRN 09/13/21 09/14/21 History Bacitracin/Polymyx Oint 1 applic TOPICAL BID 09/14/21 09/14/21 History [Polysporin Oint] Ipratropium/Albuterol Sulfate 1 puff INHALATION RT-QID PRN 09/14/21 09/14/21 History [Combivent Respimat Inhaler] Magnesium Oxide [Mag-Ox] 400 mg PO BID 09/14/21 09/14/21 History Allergies Allergy/AdvReac Type Severity Reaction Status Date / Time cefepime [From Maxipime] AdvReac Abdominal Verified 09/14/21 17:05 Pain Physical Exam Vitals: Vital Signs Temp Pulse Pulse Resp BP BP Pulse Ox 09/15/21 15:00 97.9 F 60 19 122/76 96 09/15/21 10:00 18 09/15/21 09:45 98.3 F 60 18 134/73 97 09/15/21 08:29 59 L 18 119/89 99 09/15/21 07:00 98.1 F 66 18 108/71 98 09/15/21 05:00 18 09/15/21 03:55 54 L 18 125/61 100 09/15/21 03:00 18 09/15/21 01:30 EDT 67 18 97 09/15/21 00:40 69 18 129/76 100 09/14/21 23:00 98.2 F 60 18 128/84 97 09/14/21 22:00 98.3 F 62 60 18 124/77 134/73 97 09/14/21 20:03 59 L 18 123/78 99 Intake and Output 09/15/21 09/15/21 09/15/21 06:59 14:59 22:59 Intake Total 100 Balance 100 Intake: IV 100 Piperacillin-Tazobactam 3 100 .375 gm In Sodium Chloride 0.9% 100 ml @ 200 mls/hr IVPB ONCE STA Rx#:[id number] Other: Voiding Method Toilet Weight 86.183 kg PHYSICAL EXAMINATION: GENERAL: The patient is alert and oriented x3, not in any acute distress. Obese HEENT: Pupils are round and equally reacting to light. EOMI. No scleral icterus. No conjunctival pallor. Normocephalic, atraumatic. No pharyngeal erythema. No thyromegaly. CARDIOVASCULAR: S1 and S2 present. No murmurs, rubs, or gallops. PULMONARY: Bilateral rhonchi ABDOMEN: Soft, nontender, nondistended, normoactive bowel sounds. No palpable organomegaly. EXTREMITIES: No cyanosis, clubbing, or pedal edema. Examination of the right hand- status post amputation of the right middle and ring fingers. Flap tissue in the palm area with intact sutures seen. No active signs of infection. No discharge or redness. PICC line in the left arm NEUROLOGICAL: Gross neurological examination did not reveal any focal deficits. SKIN: No rashes. Results CBC & Chem 7: 09/14/21 17:53 09/14/21 17:53 Labs: Abnormal Lab Results - Last 24 Hours (Table) 09/14/21 09/14/21 Range/Units 17:53 17:53 RBC 4.23 L (4.30-5.90) m/uL Hgb 12.7 L (13.0-17.5) gm/dL Eosinophils # 0.8 H (0-0.7) k/uL Creatinine 0.51 L (0.66-1.25) mg/dL Glucose 114 H (74-99) mg/dL Thrombosis Risk Factor Assmnt - Choose All That Apply Any of the Below Risk Factors Present?: Yes Each Factor Represents 1 point: Age 41-60 years Other Risk Factors: No Other congenital or acquired thrombophilia - If yes, enter type in comment: No Thrombosis Risk Factor Assessment Total Risk Factor Score: 1 Thrombosis Risk Factor Assessment Level: Low Risk Assessment and Plan Assessment: ASSESSMENT Right hand infection failed outpatient therapy History of crush injury of the right hand on 08/16/2021 PLAN: Patient has a PICC line in his left upper extremity for IV antibiotics. He was prescribed antibiotics -cefepime and Flagyl and discharged from [facility]. Patient had side effects to cefepime, flushing sensation, so he stopped taking cefepime. He was also having significant nausea and vomiting so stopped taking Flagyl as well. Patient was given a dose of Zosyn yesterday and today. ID Dr. Felton has been consulted for further management of his antibiotics. Hand surgery has been consulted as well. The treatment plan was discussed in detail with the patient and his daughter at bedside in detail. Multiple times were made to get his records from [facility] but no s uccess so far. GI DVT prophylaxis. Further recommendations depending on the progress of the patient. Time with Patient: Greater than 30
[2021-09-15] MEDS: PANTOPRAZOLE 40 MG TABLET PO SCH (18:05)
[2021-09-15] MEDS: MAGNESIUM OXIDE 400 MG TAB PO SCH (20:43)
[2021-09-15] MEDS: BACITRACIN/POLYMYX 500-10,000 UNIT/GM OINT 14 GM TUBE TOPICAL SCH (20:44)
[2021-09-15] MEDS: SODIUM CHLORIDE 0.9% 1,000 ML IV SCH (20:44)
--- NOTE | 2021-09-15 22:56 | P.CONS ---
History of Present Illness - Reason for Consult Consult date: 09/15/21 right hand infection Requesting physician: Nataliia Redman - Chief Complaint right hand infection and drug reaction x days - History of Present Illness History of present illness : Patient is 51-year-old male with a past medical history significant for right hand injury on 08/16/2021 after an excavator crushed his hand patient did have a surgery on 08/16/2021 for I&D and surgical fixation of multiple open fractures in his hand and closure of multiple open wounds subsequent have multiple I&D and the patient was then transferred to [facility] for definitive soft tissue surgery apparently the patient did have undergone multiple I&D's in the [facility] and did have a right middle finger amputation patient subsequently discharged from [facility] with a PICC line and IV cefepime 2 g every 8 hours to be supposed to get for 4 weeks patient mention on the last day or 2 she is not having problem with infusion patient started feeling not feeling well after IV infusion with more generalized body aches and the pain to radiate around to his right arm more like a burning pain patient denies having any itching no rash no tongue swelling no shortness of breath with the symptom the patient was brought to the ER on arrival to the ER the patient has been afebrile and no fever has been recorded subsequently patient did have a normal white count kidney function has been normal patient has been admitted to the hospital he was started on Zosyn with concern for possible vegetation cefepime infectious disease was consulted for further management of antibiotic therapy Review of system: CONSTITUTIONAL: Positive for weakness denies fever. EYES: No complaint. ENT: No complaint. RESPIRATORY: No complaint. CARDIOVASCULAR: No complaint. GENITOURINARY: No complaint. GASTROINTESTINAL: No complaint. MUSCULOSKELETAL: As per history of present illness. INTEGUMENTARY: No complaint. PSYCHOLOGIC: No complaint. ENDOCRINE: No complaint. NEUROLOGIC: No complaint. Past medical history : Reviewed, documented below Past surgical history : Reviewed, documented below Social history: Reviewed, documented below Medications: Reviewed, as documented below EXAMINATION: Vital sigans= Reviewed and documented below GENERAL DESCRIPTION: Middle-aged male lying in bed, no distress. No tachypnea or accessory muscle of respiration use. HEENT: Shows Pallor , no scleral icterus. Oral mucous membrane is dry. NECK: Trachea central, no thyromegaly. LUNGS: Unlabored breathing. Clear to auscultation anteriorly. No wheeze or crackle. HEART: S1, S2, regular rate and rhythm. ABDOMEN: Soft, no tenderness , guarding or rigidity EXTREMITIES: Right hand status post right middle and ring finger amputation, skin tissue flap appears to be healing no swelling no redness sutures are intact no purulence SKIN: No rash, no masses palpable. NEUROLOGICAL: The patient is awake, alert, oriented x3, mood and affect normal. LABS AND RADIOLOGY: Reviewed results see below Assessment : Patient with crush injury to the right hand in this patient who did have multiple I&D's both done at this hospital as well as [facility] with right middle and ring finger amputation in this patient was advised cefepime x4 weeks however seem to have problem with the cefepime infusion which looks like infusion reaction rather than drug reaction has the patient did not have any rash itching or any sinus symptoms suspicious for a drug allergic reaction Plan: 1-we will try to obtain culture data and operative report from the [facility] to see if they have any other options available besides the cefepime 2-for now continue Zosyn 3.375 g every 8 hours 3-gentle IV fluid We will follow on clinical condition and cultures to further adjust medication if needed Thank you for this consultation we will follow the patient along with you Past Medical History Past Medical History: No Reported History Additional Past Medical History / Comment(s): CONSTIPATION. UMBILICAL HERNIA. History of Any Multi-Drug Resistant Organisms: MRSA Year Discovered:: 08/14/20 MDRO Source:: MRSA BUTTOCK Past Surgical History: Orthopedic Surgery Additional Past Surgical History / Comment(s): FACIAL SURGERY D/T ACCIDENT. EXC WISDOM TEETH. right arm, lipoma, scope right knee, hernia repair Past Anesthesia/Blood Transfusion Reactions: No Reported Reaction Past Psychological History: No Psychological Hx Reported Smoking Status: Current every day smoker Past Alcohol Use History: Occasional Past Drug Use History: None Reported - Past Family History Mother Family Medical History: No Reported History Medications and Allergies Home Medications Medication Instructions Recorded Confirmed Type Acetaminophen Tab [Tylenol] 325 - 975 mg PO TID@0600,1400,2200 09/13/21 09/14/21 History PRN Gabapentin [Neurontin] 900 mg PO TID 09/13/21 09/14/21 History Ibuprofen [Motrin] 800 mg PO TID PRN 09/13/21 09/14/21 History Methocarbamol [Robaxin-750] 750 mg PO QID 09/13/21 09/14/21 History Metoprolol Tartrate [Lopressor] 25 mg PO BID@1000,2200 09/13/21 09/14/21 History Sennosides/Docusate Sodium 1 tab PO HS 09/13/21 09/14/21 History [Senna-S 8.6-50 mg Tablet] metroNIDAZOLE [Flagyl] 500 mg PO TID 09/13/21 09/14/21 History oxyCODONE HCL [oxyCODONE HCL (IR)] 10 - 15 mg PO Q4H PRN 09/13/21 09/14/21 History Bacitracin/Polymyx Oint 1 applic TOPICAL BID 09/14/21 09/14/21 History [Polysporin Oint] Ipratropium/Albuterol Sulfate 1 puff INHALATION RT-QID PRN 09/14/21 09/14/21 History [Combivent Respimat Inhaler] Magnesium Oxide [Mag-Ox] 400 mg PO BID 09/14/21 09/14/21 History Allergies Allergy/AdvReac Type Severity Reaction Status Date / Time cefepime [From Maxipime] AdvReac Abdominal Verified 09/14/21 17:05 Pain Physical Exam Vitals: Vital Signs Temp Pulse Pulse Resp BP BP Pulse Ox 09/15/21 15:00 97.9 F 60 19 122/76 96 09/15/21 10:00 18 09/15/21 09:45 98.3 F 60 18 134/73 97 09/15/21 08:29 59 L 18 119/89 99 09/15/21 07:00 98.1 F 66 18 108/71 98 09/15/21 05:00 18 09/15/21 03:55 54 L 18 125/61 100 09/15/21 03:00 18 09/15/21 01:30 EDT 67 18 97 09/15/21 00:40 69 18 129/76 100 09/14/21 23:00 98.2 F 60 18 128/84 97 09/14/21 22:00 98.3 F 62 60 18 124/77 134/73 97 09/14/21 20:03 59 L 18 123/78 99 09/14/21 16:48 98.4 F 65 18 157/104 100 Intake and Output 09/15/21 09/15/21 09/15/21 06:59 14:59 22:59 Other: Voiding Method Toilet Weight 86.183 kg Results CBC & Chem 7: 09/14/21 17:53 09/14/21 17:53 Labs: Abnormal Lab Results - Last 24 Hours (Table) 09/14/21 09/14/21 Range/Units 17:53 17:53 RBC 4.23 L (4.30-5.90) m/uL Hgb 12.7 L (13.0-17.5) gm/dL Eosinophils # 0.8 H (0-0.7) k/uL Creatinine 0.51 L (0.66-1.25) mg/dL Glucose 114 H (74-99) mg/dL
[2021-09-16] MEDS: MORPHINE SULFATE 4 MG/ML SYRINGE IV PRN ×4 (06:22→23:28)
[2021-09-16] MEDS: ONDANSETRON 4 MG/2 ML VIAL IVP PRN ×2 (06:22→18:48)
[2021-09-16] MEDS: methocarbamoL 750 MG TAB PO SCH ×4 (08:22→23:26)
[2021-09-16] MEDS: MAGNESIUM OXIDE 400 MG TAB PO SCH ×2 (08:22→20:57)
[2021-09-16] MEDS: GABAPENTIN 300 MG CAP PO SCH ×3 (08:22→20:57)
[2021-09-16] MEDS: PANTOPRAZOLE 40 MG TABLET PO SCH ×2 (08:22→17:43)
[2021-09-16] MEDS: ENOXAPARIN 40 MG/0.4 ML SYRINGE SQ SCH (08:22)
[2021-09-16] MEDS: METOPROLOL TARTRATE 25 MG TAB PO SCH ×2 (09:58→20:57)
[2021-09-16] MEDS: BACITRACIN/POLYMYX 500-10,000 UNIT/GM OINT 14 GM TUBE TOPICAL SCH ×2 (11:41→21:02)
[2021-09-16] MEDS: CEFEPIME 2 GM in SODIUM CHLORIDE 0.9% 100 ML IVPB SCH ×2 (11:54→21:01)
[2021-09-16 12:29] LABS: Basophils # (A) 0.1 k/uL (0-0.2); Basophils % (A) 1 %; Eosinophils # (A) 0.7 k/uL (0-0.7); Eosinophils % (A) 8 %; HCT 38.3 % (39.0-53.0); HGB 12.3 gm/dL (13.0-17.5); Lymphocytes # (A) 2.3 k/uL (1.0-4.8); Lymphocytes % (A) 27 %; MCHC 32.2 g/dL (31.0-37.0); MCV 96.5 fL (80.0-100.0); Mean Platelet Volume 7.4; Monocytes # (A) 0.4 k/uL (0-1.0); Monocytes % (A) 5 %; Neutrophils # (A) 4.8 k/uL (1.3-7.7); Neutrophils % (A) 57 %; Platelet Count 251 k/uL (150-450); RBC 3.97 m/uL (4.30-5.90); RDW 13.3 % (11.5-15.5); WBC 8.4 k/uL (3.8-10.6)
[2021-09-16 12:40] LABS: African American GFR (CKD) >90 (>60 ml/min/1.73 sqM); Anion Gap 5 mmol/L; Blood Urea Nitrogen 13 mg/dL (9-20); Calcium 9.3 mg/dL (8.4-10.2); Carbon Dioxide 29 mmol/L (22-30); Chloride 105 mmol/L (98-107); Glucose 132 mg/dL (74-99); Non-African American GFR(CKD) >90 (>60 ml/min/1.73 sqM); Potassium 4.3 mmol/L (3.5-5.1); Sodium 139 mmol/L (137-145)
--- NOTE | 2021-09-16 12:50 | P.PN ---
Subjective Progress Note Date: 09/16/21 Principal diagnosis: s/p R hand crush injury Pt seen and examined at bedside. No issues overnight, his pain is well controlled. Dressing was re-applied earlier today. He is currently receiving infusion of Cefepime but has noted no recent events of burning pain upon administration. Objective - Vital Signs Vital signs: Vital Signs Temp 98.7 F 09/16/21 07:00 Pulse 63 09/16/21 07:00 Resp 16 09/16/21 07:00 BP 118/69 09/16/21 07:00 Pulse Ox 98 09/16/21 01:56 Intake & Output 09/15/21 09/16/21 09/16/21 18:59 06:59 18:59 Intake Total 100 550 Balance 100 550 Weight 86.183 kg Intake: IV 100 Piperacillin-Tazobactam 3 100 .375 gm In Sodium Chloride 0.9% 100 ml @ 200 mls/hr IVPB ONCE STA Rx#:[id number] Oral 550 Other: Voiding Method Toilet Toilet # Voids 2 2 # Bowel Movements 1 - Labs CBC & Chem 7: 09/16/21 12:06 09/16/21 12:06 Labs: Abnormal Lab Results - Last 24 Hours (Table) 09/16/21 09/16/21 Range/Units 12:06 12:06 RBC 3.97 L (4.30-5.90) m/uL Hgb 12.3 L (13.0-17.5) gm/dL Hct 38.3 L (39.0-53.0) % Creatinine 0.64 L (0.66-1.25) mg/dL Glucose 132 H (74-99) mg/dL Assessment and Plan Assessment: 1.) S/p Right hand crush injury requiring multiple surgeries including repeat I&Ds, right ring finger amputation at [facility] and multiple I&D's, right middle finger MCP amputation and local soft tissue coverage for palmar sk in defect at [facility] 2.) PICC line left upper extremity. Plan: 1.) Case findings were discussed with the patient at bedside. His hand continues to be healing well and appears to be infection free. 2.) Follow up in outpatient setting in the next 10 days for suture removal and likely hand therapy initiation. 3.) Continue his daily dressing changes as needed and may let the hand air out several times a day. 4.) Appreciate ID recs 5.) Stable from orthopedic standpoint for DC to home with outpatient follow up Time with Patient: Less than 30
--- NOTE | 2021-09-16 15:40 | P.PN ---
Subjective Progress Note Date: 09/16/21 Principal diagnosis: Hand infection Mr. Cervantes is a 51-year-old male with no significant past medical history coming in with a chief complaint of right hand infection. Patient had a crush injury on August in a contaminated environment while at work. Patient was taken to the OR on 08/16/2021 and had surgical fixation of the crush injury. Eventually patient required multiple I&D's along with amputation and eventually transferred to [facility]. At [facility] the patient had amputation of his middle and ring fingers. He states in the hospital for almost 3 weeks as per discussion with his daughter was at the bedside. Patient eventually was discharged on a PICC line from [facility] to be taking cefepime and Flagyl. Patient states that he took Flagyl for couple of days but on the third day he started to have shooting pain in his right hand when he was taking the antibiotics so stopped taking it for one day and came into the em ergency. In the ER patient was given a dose of Levaquin and sent home. But patient came back again yesterday stating that he still has pain and cannot tolerate his antibiotics that he was discharged home on. At the time of admission patient's vital signs temperature 98.4, heart rate 63, respiratory rate 18, blood pressure 157/104 saturating 100% on room air. On reviewing the last white count of 8.5, hemoglobin and 0.7, platelets 250. Sodium 138, potassium 4.7, chloride 106, bicarb 26, BUN 12, creatinine 0.51, Torres PCR negative. On 09/16/2021 patient is seen and examined at the bedside. Patient has no active complaints and no acute events reported by nursing staff overnight. Records from [facility] has been reviewed. Patient denies having any fevers chills or rigors. No cough or difficulty in breathing. No chest pain or palpations. No abdominal pain nausea vomiting or diarrhea. No dysuria or hematuria. On reviewing the vitals T-max of 98.7, heart rate 63, respiratory rate 16, blood pressure 1 18 x 16 and saturating at 94% on room air. On reviewing the labs white count of 8.4, hemoglobin 12.3, platelets 251. Sodium 139 over duration. Limited, chloride 105, bicarbonate 29, BUN 13, creatinine 0.64. Patient's medications have been reviewed Active Medications Acetaminophen (Acetaminophen Tab 325 Mg Tab) 650 mg PO Q6HR PRN PRN Reason: Mild Pain or Fever > 100.5 Last Admin: 09/15/21 00:44 Dose: 650 mg Documented by: Albuterol/Ipratropium (Ipratropium-Albuterol 3 Ml Neb) 3 ml INHALATION RT-QID PRN PRN Reason: Shortness Of Breath Bacitracin/Polymyxin B Sulfate (Bacitracin/Polymyx 500-10,000 Unit/Gm Oint 14 Gm Tube) 1 applic TOPICAL BID [facility]; Protocol Last Admin: 09/16/21 11:41 Dose: 1 applic Documented by: Enoxaparin Sodium (Enoxaparin 40 Mg/0.4 Ml Syringe) 40 mg SQ DAILY [facility] Last Admin: 09/16/21 08:22 Dose: 40 mg Documented by: Gabapentin (Gabapentin 300 Mg Cap) 900 mg PO TID [facility] Last Admin: 09/16/21 08:22 Dose: 900 mg Documented by: Sodium Chloride (Saline 0.9%) 1,000 mls @ 20 mls/hr IV .Q24H [facility] Last Admin: 09/15/21 20:44 Dose: 20 mls/hr Documented by: Cefepime HCl 2 gm/ Sodium (Chloride) 100 mls @ 25 mls/hr IVPB Q8H [facility] Last Admin: 09/16/21 11:54 Dose: 25 mls/hr Documented by: Magnesium Oxide (Magnesium Oxide 400 Mg Tab) 400 mg PO BID [facility] Last Admin: 09/16/21 08:22 Dose: 400 mg Documented by: Methocarbamol (Methocarbamol 750 Mg Tab) 750 mg PO QID [facility] Last Admin: 09/16/21 14:48 Dose: 750 mg Documented by: Metoprolol Tartrate (Metoprolol Tartrate 25 Mg Tab) 25 mg PO BID@1000,2200 [facility] Last Admin: 09/16/21 09:58 Dose: 25 mg Documented by: Metronidazole (Metronidazole 500 Mg Tab) 500 mg PO TID [facility] Morphine Sulfate (Morphine Sulfate 4 Mg/Ml Syringe) 4 mg IV Q4HR PRN PRN Reason: Severe Pain Last Admin: 09/16/21 11:42 Dose: 4 mg Documented by: Naloxone HCl (Naloxone 0.4 Mg/Ml 1 Ml Vial) 0.2 mg IV Q2M PRN PRN Reason: Opioid Reversal Ondansetron HCl (Ondansetron 4 Mg/2 Ml Vial) 4 mg IVP Q8HR PRN PRN Reason: Nausea And Vomiting Last Admin: 09/16/21 06:22 Dose: 4 mg Documented by: Pantoprazole Sodium (Pantoprazole 40 Mg Tablet) 40 mg PO AC-BID MAIA Last Admin: 09/16/21 08:22 Dose: 40 mg Documented by: Senna/Docusate Sodium (Sennosides-Docusate Sodium 1 Each Tab) 1 each PO HS PRN PRN Reason: Constipation Objective - Vital Signs Vital signs: Vital Signs Temp 98.7 F 09/16/21 07:00 Pulse 63 09/16/21 07:00 Resp 16 09/16/21 07:00 BP 118/69 09/16/21 07:00 Pulse Ox 98 09/16/21 01:56 Intake & Output 09/15/21 09/16/21 09/16/21 18:59 06:59 18:59 Intake Total 100 550 Balance 100 550 Weight 86.183 kg Intake: IV 100 Piperacillin-Tazobactam 3 100 .375 gm In Sodium Chloride 0.9% 100 ml @ 200 mls/hr IVPB ONCE STA Rx#:[id number] Oral 550 Other: Voiding Method Toilet Toilet # Voids 2 2 # Bowel Movements 1 - Exam PHYSICAL EXAMINATION: GENERAL: The patient is alert and oriented x3, not in any acute distress. Obese HEENT: Pupils are round and equally reacting to light. EOMI. No scleral icterus. No conjunctival pallor. Normocephalic, atraumatic. No pharyngeal erythema. No thyromegaly. CARDIOVASCULAR: S1 and S2 present. No murmurs, rubs, or gallops. PULMONARY: Bilateral rhonchi ABDOMEN: Soft, nontender, nondistended, normoactive bowel sounds. No palpable organomegaly. EXTREMITIES: No cyanosis, clubbing, or pedal edema. Right hand is wrapped in bandage. PICC line in the left arm NEUROLOGICAL: Gross neurological examination did not reveal any focal deficits. SKIN: No rashes. - Labs CBC & Chem 7: 09/16/21 12:06 09/16/21 12:06 Assessment and Plan Assessment: ASSESSMENT Right hand infection failed outpatient therapy History of crush injury of the right hand on 08/16/2021 GI/DVT prophylaxis PLAN: Patient has a PICC line in his left upper extremity for IV antibiotics. He was prescribed antibiotics -cefepime and Flagyl and discharged from [facility]. Patient had side effects to cefepime, flushing sensation, so he stopped taking cefepime. He was also having significant nausea and vomiting so stopped taking Flagyl as well. Patient was given Zosyn in the last couple of days. Reviewed the records from [facility] showing gram-negative bacilli, Aeromonas, and multiple other organisms. Susceptibilities were reviewed. Discussed with ID Dr. Felton- and would want to continue with cefepime and Flagyl, the antibiotics the patient was discharged home on. Hand surgery on board and following the patient as well . The treatment plan was discussed in detail with the patient and his daughter at bedside in detail. GI DVT prophylaxis. Further recommendations depending on the progress of the patient.
[2021-09-16] MEDS: metroNIDAZOLE 500 MG TAB PO SCH ×2 (16:31→23:26)
[2021-09-16] MEDS: SODIUM CHLORIDE 0.9% 1,000 ML IV SCH (21:01)
--- NOTE | 2021-09-16 23:13 | PN ---
PROGRESS NOTE DATE OF SERVICE: 09/16/2021 REASON FOR FOLLOWUP: Left hand infection. INTERVAL HISTORY: The patient is afebrile, breathing comfortably. Overall pain and discomfort to hand has slightly decreased. Patient denies having any chest pain or shortness of breath or cough. No abdominal pain or diarrhea. PHYSICAL EXAMINATION: Blood pressure is 118/69, pulse of 73, temperature 98.7. He is 98% on room air. General description is a middle-aged male up in the bed in no distress. Respiratory system: Unlabored breathing, clear to auscultation anteriorly. Heart S1, S2. Regular rate and rhythm. Abdomen soft, no tenderness. Right hand incision is currently intact. No significant drainage was noticed. LABS: Hemoglobin is 12.3 with a white count of 8.4, creatinine 0.64. DIAGNOSTIC IMPRESSION AND PLAN: Patient with right hand infection in this patient with amputation of the right index and ring finger. Culture has been mostly Gram-negative, admitted to hospital concerning for some transfusion reaction. However, the patient had here without any problem. Will continue the patient on cefepime and Flagyl to finish his 4-week course of therapy and close outpatient followup. MMODL / IJN: [id number] /
[2021-09-17] MEDS: CEFEPIME 2 GM in SODIUM CHLORIDE 0.9% 100 ML IVPB SCH ×3 (04:07→20:04)
[2021-09-17] MEDS: MORPHINE SULFATE 4 MG/ML SYRINGE IV PRN ×4 (04:18→20:29)
[2021-09-17] MEDS: metroNIDAZOLE 500 MG TAB PO SCH ×3 (08:46→20:04)
[2021-09-17] MEDS: PANTOPRAZOLE 40 MG TABLET PO SCH ×2 (08:46→18:14)
[2021-09-17] MEDS: ENOXAPARIN 40 MG/0.4 ML SYRINGE SQ SCH (08:46)
[2021-09-17] MEDS: methocarbamoL 750 MG TAB PO SCH ×4 (08:46→20:04)
[2021-09-17] MEDS: GABAPENTIN 300 MG CAP PO SCH ×3 (08:46→20:05)
[2021-09-17] MEDS: MAGNESIUM OXIDE 400 MG TAB PO SCH ×2 (08:46→20:05)
[2021-09-17] MEDS: BACITRACIN/POLYMYX 500-10,000 UNIT/GM OINT 14 GM TUBE TOPICAL SCH ×2 (09:33→20:08)
[2021-09-17] MEDS: METOPROLOL TARTRATE 25 MG TAB PO SCH ×2 (10:00→20:04)
[2021-09-17 10:15] LABS: Basophils # (A) 0.09 X 10*3/uL (0.00-0.10); Basophils % (A) 1.2 %; Eosinophils # (A) 0.78 X 10*3/uL (0.04-0.35); Eosinophils % (A) 10.5 %; HCT 37.9 % (39.6-50.0); HGB 11.5 g/dL (13.0-17.0); Lymphocytes # (A) 1.02 X 10*3/uL (0.90-5.00); Lymphocytes % (A) 13.7 %; MCH 29.9 pg (27.0-32.0); MCHC 30.3 g/dL (32.0-37.0); MCV 98.4 fL (80.0-97.0); Mean Platelet Volume 10.5 fL (9.5-12.2); Monocytes % (A) 9.4 %; Neutrophils # (A) 4.83 X 10*3/uL (1.80-7.70); Neutrophils % (A) 64.8 %; Platelet Count 236 X 10*3/uL (140-440); RBC 3.85 X 10*6/uL (4.40-5.60); RDW 13.7 % (11.5-14.5); WBC 7.45 X 10*3/uL (4.50-10.00)
[2021-09-17 10:50] LABS: African American GFR (CKD) 126.6 (60.0-200.0); Anion Gap 7.9 mmol/L (4.00-12.00); BUN/Creat Ratio 15.43 Ratio (12.00-20.00); Blood Urea Nitrogen 10.8 mg/dL (9.0-27.0); Carbon Dioxide 28.1 mmol/L (21.6-31.8); Non-African American GFR(CKD) 109.3 (60.0-200.0); Potassium 4.1 mmol/L (3.5-5.5)
--- NOTE | 2021-09-17 12:21 | P.CONS ---
History of Present Illness - Reason for Consult Consult date: 09/17/21 wound care - History of Present Illness This is a 51-year-old male who had a crush injury at the end of August resulting in multiple surgeries and amputation of his third and fourth digit of the right hand. Patient is currently receiving IV antibiotics. He was seen by the orthopedic hand surgeon who stated that the incisions were healing well without any concerns. Patient has sutures in place to the palmar aspect of the right hand and approximated incisions to the first and second digit of the right hand. Patient currently is utilizing triple antibiotic ointment Xeroform and Kerlix. Review Of Systems: Constitutional: No fever, no chills, no night sweats. No weight change. No weakness, fatigue or lethargy. No daytime sleepiness. Integumentary:reports wounds, no lesions. No rash or pruritus. No unusual bruising. No change in hair or nails. Physical exam: General Appearance: Alert, cooperative, no distress, appears stated age. Skin: See HPI all other Skin color, texture, tugor normal, no rashes or lesions. Neurologic: Alert oriented x3 Assessment: 1. Traumatic crushing hand injury Plan: 1. Continue his dressings as prescribed for her orthopedic Surgeon. No further interventions from a wound care standpoint. In the outpatient wound care is needed we'll be happy to see him in the wound care center. Thank you for the consultation any questions contact the wound care center DNP note has been reviewed and discussed with Dr. Dean and the impression and plan of care has been directed as dictated. Past Medical History Past Medical History: No Reported History Additional Past Medical History / Comment(s): CONSTIPATION. UMBILICAL HERNIA. History of Any Multi-Drug Resistant Organisms: MRSA Year Discovered:: 08/14/20 MDRO Source:: MRSA BUTTOCK Past Surgical History: Orthopedic Surgery Additional Past Surgical History / Comment(s): FACIAL SURGERY D/T ACCIDENT. EXC WISDOM TEETH. right arm, lipoma, scope right knee, hernia repair Past Anesthesia/Blood Transfusion Reactions: No Reported Reaction Past Psychological History: No Psychological Hx Reported Smoking Status: Current every day smoker Past Alcohol Use History: Occasional Past Drug Use History: None Reported - Past Family History Mother Family Medical History: No Reported History Medications and Allergies Home Medications Medication Instructions Recorded Confirmed Type Acetaminophen Tab [Tylenol] 325 - 975 mg PO TID@0600,1400,2200 09/13/21 09/14/21 History PRN Gabapentin [Neurontin] 900 mg PO TID 09/13/21 09/14/21 History Ibuprofen [Motrin] 800 mg PO TID PRN 09/13/21 09/14/21 History Methocarbamol [Robaxin-750] 750 mg PO QID 09/13/21 09/14/21 History Metoprolol Tartrate [Lopressor] 25 mg PO BID@1000,2200 09/13/21 09/14/21 History Sennosides/Docusate Sodium 1 tab PO HS 09/13/21 09/14/21 History [Senna-S 8.6-50 mg Tablet] metroNIDAZOLE [Flagyl] 500 mg PO TID 09/13/21 09/14/21 History oxyCODONE HCL [oxyCODONE HCL (IR)] 10 - 15 mg PO Q4H PRN 09/13/21 09/14/21 History Bacitracin/Polymyx Oint 1 applic TOPICAL BID 09/14/21 09/14/21 History [Polysporin Oint] Ipratropium/Albuterol Sulfate 1 puff INHALATION RT-QID PRN 09/14/21 09/14/21 History [Combivent Respimat Inhaler] Magnesium Oxide [Mag-Ox] 400 mg PO BID 09/14/21 09/14/21 History Allergies Allergy/AdvReac Type Severity Reaction Status Date / Time cefepime [From Maxipime] AdvReac Abdominal Verified 09/14/21 17:05 Pain Physical Exam Vitals: Vital Signs Temp Pulse Resp BP BP Pulse Ox 09/17/21 07:00 98.2 F 66 19 115/71 98 09/17/21 02:00 16 09/17/21 01:49 98.0 F 55 L 16 119/67 100 09/16/21 20:00 16 09/16/21 19:33 98.2 F 78 16 136/75 97 09/16/21 15:00 98.6 F 64 16 124/72 96 Intake and Output 09/16/21 09/17/21 09/17/21 22:59 06:59 14:59 Intake Total 300 200 Balance 300 200 Intake: Oral 300 200 Other: Voiding Method Toilet Toilet # Voids 1 1 # Bowel Movements 1 Results CBC & Chem 7: 09/17/21 05:49 09/17/21 05:49 Labs: Abnormal Lab Results - Last 24 Hours (Table) 09/16/21 09/16/21 09/17/21 Range/Units 12:06 12:06 05:49 RBC 3.97 L 3.85 L (4.30-5.90) m/uL Hgb 12.3 L 11.5 L (13.0-17.5) gm/dL Hct 38.3 L 37.9 L (39.0-53.0) % MCV 98.4 H (80.0-97.0) fL MCHC 30.3 L (32.0-37.0) g/dL Eosinophils # 0.78 H (0.04-0.35) X 10*3/uL Creatinine 0.64 L (0.66-1.25) mg/dL Glucose 132 H (74-99) mg/dL 09/17/21 Range/Units 05:49 RBC (4.30-5.90) m/uL Hgb (13.0-17.5) gm/dL Hct (39.0-53.0) % MCV (80.0-97.0) fL MCHC (32.0-37.0) g/dL Eosinophils # (0.04-0.35) X 10*3/uL Creatinine (0.66-1.25) mg/dL Glucose 115 H (74-99) mg/dL Assessment and Plan (1) Crushing injury of right hand and finger Current Visit: No Status: Acute Code(s): S67.21XA - CRUSHING INJURY OF RIGHT HAND, INITIAL ENCOUNTER SNOMED Code(s): 18010546745651280 (2) History of amputation of finger of right hand Current Visit: No Status: Acute Code(s): Z89.021 - ACQUIRED ABSENCE OF RIGHT FINGER(S) SNOMED Code(s): 78721796468591876
--- NOTE | 2021-09-17 13:31 | PN ---
PROGRESS NOTE DATE OF SERVICE: 09/17/2021. REASON FOR FOLLOWUP: Right hand abscess and cellulitis. INTERVAL HISTORY: The patient is afebrile. The patient is feeling better, breathing comfortably. Overall pain to the right hand has improved. The patient denies having any chest pain or shortness of breath or cough. No abdominal pain or diarrhea. PHYSICAL EXAMINATION: Blood pressure 115/71, pulse of 63, temperature 98.2. He is 98% on room air. General description is a middle-aged male up in the bed in no distress. Respiratory system: Unlabored breathing, clear to auscultation anteriorly. Heart S1, S2. Regular rate and rhythm. Abdomen soft, no tenderness. Right hand is currently dressed. No obvious drainage on the dressing. LABS: Hemoglobin is 11.4, white count 7.44. Creatinine is 0.7. DIAGNOSTIC IMPRESSION AND PLAN: Patient with right hand infection with recent amputation of the finger at [facility]. Culture Gram-negative. Patient treated, tolerated cefepime without any problem. Plan to continue with cefepime and Flagyl to finish a 4-week course of therapy and close outpatient followup. MMODL / IJN: [id number] /
--- NOTE | 2021-09-17 14:13 | P.PN ---
Subjective Progress Note Date: 09/17/21 Principal diagnosis: s/p R hand crush injury Pt seen and examined at bedside. No issues overnight, his pain is well controlled. Dressing was re-applied earlier today. He continues to receive his antibiotics but has noted no recent events of burning pain upon administration. Objective - Vital Signs Vital signs: Vital Signs Temp 98.2 F 09/17/21 07:00 Pulse 66 09/17/21 07:00 Resp 19 09/17/21 07:00 BP 115/71 09/17/21 07:00 Pulse Ox 98 09/17/21 07:00 Intake & Output 09/16/21 09/17/21 09/17/21 18:59 06:59 18:59 Intake Total 260 500 Balance 260 500 Intake: Intake, IV Titration 260 Amount Cefepime 2 gm In Sodium 100 Chloride 0.9% 100 ml @ 25 mls/hr IVPB Q8H [facility] Rx#: [id number] Sodium Chloride 0.9% 1, 160 000 ml @ 20 mls/hr IV . Q24H [facility] Rx#:[id number] Oral 500 Other: Voiding Method Toilet # Voids 1 # Bowel Movements 1 - Exam RUE: Large bulky dressing intact with exposed finger tips, cap refill less than 3 seconds. No interval change in overall wound. - Labs CBC & Chem 7: 09/17/21 05:49 09/17/21 05:49 Labs: Abnormal Lab Results - Last 24 Hours (Table) 09/17/21 09/17/21 Range/Units 05:49 05:49 RBC 3.85 L (4.40-5.60) X 10*6/uL Hgb 11.5 L (13.0-17.0) g/dL Hct 37.9 L (39.6-50.0) % MCV 98.4 H (80.0-97.0) fL MCHC 30.3 L (32.0-37.0) g/dL Eosinophils # 0.78 H (0.04-0.35) X 10*3/uL Glucose 115 H (70-110) mg/dL Assessment and Plan Assessment: 1.) S/p Right hand crush injury requiring multiple surgeries including repeat I&Ds, right ring finger amputation at [facility] and multiple I&D's, right middle finger MCP amputation and local soft tissue coverage for palmar skin defect at [facility] 2.) PICC line left upper extremity. Plan: 1.) The hand continues to be healing well and appears to be infection free. 2.) Follow up in outpatient setting in the next 10 days for suture removal and likely hand therapy initiation. 3.) Continue his daily dressing changes as needed and may let the hand air out several times a day. 4.) Appreciate ID recs 5.) Stable from orthopedic standpoint for DC to home with outpatient follow up Time with Patient: Less than 30
--- NOTE | 2021-09-17 18:41 | PN ---
PROGRESS NOTE DATE OF SERVICE: 09/17/2021 This 51-year-old gentleman who was admitted with right hand abscess and cellulitis is on IV antibiotics. The patient has significant social issues and PICC line has been inserted for outpatient IV antibiotics. ECF is being considered. No chest pain. No palpitations. No fever. PHYSICAL EXAMINATION: Alert and oriented x3. Pulse 66, blood pressure 113/70, respiration 20, temperature 98.2, pulse ox 97% on 2 L. HEENT: Conjunctivae normal. NECK: No jugular venous distention. CARDIOVASCULAR: S1, S2 muffled. RESPIRATION: Breath sounds diminished at the bases. ABDOMEN: Soft, nontender. Right hand wound and status post amputations present. LABS: WBC 7.2, hemoglobin 11.5. ASSESSMENT: 1. Right hand infection, status post amputation with failure of outpatient treatment. 2. History of crush injury, right hand on 08/16/2021. 3. Gastrointestinal and deep vein thrombosis prophylaxis. 4. Anemia, normocytic anemia of chronic disease. 5. Aerococcus, Aeromonas caviae and MRSA from the previous cultures. RECOMMENDATIONS AND DISCUSSION: I recommend to continue current medications, continue with symptomatic treatment. Otherwise, closely monitor. Outpatient antibiotics in the ECF. Further recommendations to follow. MMODL / IJN: [id number] /
[2021-09-17] MEDS: SODIUM CHLORIDE 0.9% 1,000 ML IV SCH (20:05)
[2021-09-18] MEDS: MORPHINE SULFATE 4 MG/ML SYRINGE IV PRN ×4 (02:09→15:43)
[2021-09-18] MEDS: CEFEPIME 2 GM in SODIUM CHLORIDE 0.9% 100 ML IVPB SCH ×2 (04:45→13:50)
[2021-09-18] MEDS: GABAPENTIN 300 MG CAP PO SCH (10:03)
[2021-09-18] MEDS: MAGNESIUM OXIDE 400 MG TAB PO SCH (10:04)
[2021-09-18] MEDS: PANTOPRAZOLE 40 MG TABLET PO SCH (10:04)
[2021-09-18] MEDS: METOPROLOL TARTRATE 25 MG TAB PO SCH (10:04)
[2021-09-18] MEDS: metroNIDAZOLE 500 MG TAB PO SCH (10:05)
[2021-09-18] MEDS: ENOXAPARIN 40 MG/0.4 ML SYRINGE SQ SCH (10:05)
[2021-09-18] MEDS: methocarbamoL 750 MG TAB PO SCH ×2 (10:06→13:51)
[2021-09-18] MEDS: ACETAMINOPHEN TAB 325 MG TAB PO PRN (11:30)
[2021-09-18] MEDS: BACITRACIN/POLYMYX 500-10,000 UNIT/GM OINT 14 GM TUBE TOPICAL SCH (13:28)
[2021-09-18 14:27] VITALS: BP 126/81; RESP 18; TEMP 98.1
[2021-09-18 14:48] VITALS: PULSE 60
--- NOTE | 2021-09-18 15:25 | P.DS ---
Providers Date of admission: 09/17/21 15:37 Expected date of discharge: 09/18/21 Attending physician: Nataliia Redman Consults: 09/14/21 19:42 Consult Physician Routine Consulting Provider: Masoud Sharma Consult Reason/Comments: hand pain Do you want consulting provider notified?: Yes Consult Physician Routine Consulting Provider: Brant Felton Consult Reason/Comments: hand antibiotics Do you want consulting provider notified?: Yes Primary care physician: Rafat Fernando Hospital Course: Final diagnosis Right hand infection, status post amputation with failure of outpatient treatment History of crush injury to the right hand on 08/16/2021 Gastrointestinal and DVT prophylaxis Anemia, normocytic anemia of chronic disease Aerococcus, Aeromonas caviae and MRSA from previous cultures Full code Discharge disposition Patient is being discharged in a stable condition with guarded prognosis to [facility]. Patient will follow-up with Dr. Wesley in the outpatient setting upon discharge. Patient is to continue with IV antibiotics in the form of cefepime every 8 hours for the next 4 weeks along with Flagyl 500 mg 3 times a day for the next 4 weeks and needs close outpatient follow-up with Dr. Felton along with orthopedics in the next 1-2 weeks. Total time taken is greater than 35 minutes. Hospital course This is a 51-year-old male who was recently admitted with right hand abscess and cellulitis and is on IV antibiotics being closely monitored. Patient received a PICC line and will require 4 weeks of IV antibiotic therapy along with oral antibiotics and recommend close outpatient follow-up with Dr. Felton and continued wound care to the right hand. Patient will also need orthopedic follow-up in the outpatient setting in 1-2 weeks. Recommend continue with local wound care. Currently no reports of chest pain, shortness of breath, or palpitations. Patient is afebrile. No reports of nausea or vomiting and patient is tolerating diet. Patient will be going to [facility] today. On exam vital signs are stable. Cardio S1, S2 are muffled. Respiratory system shows diminished breath sounds at the bases with no wheezing or rhonchi noted. Abdomen is soft and nontender. Nervous system shows no focal deficit. Please refer to medication reconciliation sheet for a list of medications. Patient Condition at Discharge: Fair Plan - Discharge Summary Discharge Rx Participant: No New Discharge Prescriptions: New Ipratropium-Albuterol Nebulize [Duoneb 0.5 mg-3 mg/3 ml Soln] 3 ml INHALATION RT-QID PRN ml PRN Reason: Shortness Of Breath metroNIDAZOLE [Flagyl] 500 mg PO TID #84 tab Cefepime [Maxipime] 2 gm IVPB Q8H #84 each Acetaminophen Tab [Tylenol] 650 mg PO Q6HR PRN tab PRN Reason: Mild Pain Or Fever > 100.5 Enoxaparin [Lovenox] 40 mg SQ DAILY each HYDROcodone/APAP 5-325MG [Pyatt 5-325] 1 tab PO Q6HR PRN #6 tab PRN Reason: Pain Pantoprazole [Protonix] 40 mg PO AC-BID tab Continue Methocarbamol [Robaxin-750] 750 mg PO QID Metoprolol Tartrate [Lopressor] 25 mg PO BID@1000,2200 Ibuprofen [Motrin] 800 mg PO TID PRN PRN Reason: Pain Bacitracin/Polymyx Oint [Polysporin Oint] 1 applic TOPICAL BID Ipratropium/Albuterol Sulfate [Combivent Respimat Inhaler] 1 puff INHALATION RT-QID PRN PRN Reason: Shortness Of Breath Magnesium Oxide [Mag-Ox] 400 mg PO BID Sennosides/Docusate Sodium [Senna-S 8.6-50 mg Tablet] 1 tab PO HS Gabapentin [Neurontin] 900 mg PO TID Changed oxyCODONE HCL [oxyCODONE HCL (IR)] 15 mg PO Q4H PRN #6 tab PRN Reason: Pain Discontinued metroNIDAZOLE [Flagyl] 500 mg PO TID Acetaminophen Tab [Tylenol] 325 - 975 mg PO TID@0600,1400,2200 PRN PRN Reason: Pain Discharge Medication List Gabapentin [Neurontin] 900 mg PO TID 09/13/21 [History] Ibuprofen [Motrin] 800 mg PO TID PRN 09/13/21 [History] Methocarbamol [Robaxin-750] 750 mg PO QID 09/13/21 [History] Metoprolol Tartrate [Lopressor] 25 mg PO BID@1000,2200 09/13/21 [History] Sennosides/Docusate Sodium [Senna-S 8.6-50 mg Tablet] 1 tab PO HS 09/13/21 [History] Bacitracin/Polymyx Oint [Polysporin Oint] 1 applic TOPICAL BID 09/14/21 [History] Ipratropium/Albuterol Sulfate [Combivent Respimat Inhaler] 1 puff INHALATION RT- QID PRN 09/14/21 [History] Magnesium Oxide [Mag-Ox] 400 mg PO BID 09/14/21 [History] Acetaminophen Tab [Tylenol] 650 mg PO Q6HR PRN tab 09/18/21 [Rx] Cefepime [Maxipime] 2 gm IVPB Q8H #84 each 09/18/21 [Rx] Enoxaparin [Lovenox] 40 mg SQ DAILY each 09/18/21 [Rx] HYDROcodone/APAP 5-325MG [Pyatt 5-325] 1 tab PO Q6HR PRN #6 tab 09/18/21 [Rx] Ipratropium-Albuterol Nebulize [Duoneb 0.5 mg-3 mg/3 ml Soln] 3 ml INHALATION RT-QID PRN ml 09/18/21 [Rx] Pantoprazole [Protonix] 40 mg PO AC-BID tab 09/18/21 [Rx] metroNIDAZOLE [Flagyl] 500 mg PO TID #84 tab 09/18/21 [Rx] oxyCODONE HCL [oxyCODONE HCL (IR)] 15 mg PO Q4H PRN #6 tab 09/18/21 [Rx] Follow up Appointment(s)/Referral(s): Abdullahi Douglass MD [Primary Care Provider] - 1-2 days Masoud Sharma DO [Doctor of Osteopathic Medicine] - 1 Week Brant Felton MD [STAFF PHYSICIAN] - 1 Week Activity/Diet/Wound Care/Special Instructions: Patient is going to [facility] on the Other Machine Activity as tolerated Continue taking medications as prescribed Follow-up with infectious disease Dr. Felton in 1-2 weeks Follow-up with orthopedics in 1-2 weeks Continue with local wound care Continue heart healthy diet Discharge Disposition: TRANSFER TO SNF/ECF
--- NOTE | 2021-09-18 16:37 | PN ---
PROGRESS NOTE DATE OF SERVICE: 09/18/2021 REASON FOR FOLLOWUP: Right hand abscess, cellulitis. INTERVAL HISTORY: The patient is afebrile. The patient is currently breathing comfortably. The patient denies having any chest pain, shortness of breath or cough. No abdominal pain or pain to the right hand area. PHYSICAL EXAMINATION: Blood pressure 169/75, pulse of 69, temperature 98.6. He is 96% on room air. General description is a middle-aged male up in the room in no distress. Respiratory system: Unlabored breathing, clear to auscultation anteriorly. Heart S1, S2. Regular rate and rhythm. Abdomen soft, no tenderness. LABS: No new labs have been obtained today. DIAGNOSTIC IMPRESSION AND PLAN: Patient with a right hand wound, postsurgical, after amputation of his finger. Culture has been Gram-negative. Patient is currently covered with cefepime and Flagyl; to continue while monitoring clinical course closely. Continue with supportive care. MMODL / IJN: [id number] /
== END 2021-09-18 15:50 | DRG 565 ==
LOC: EC 16:32 → 6NMEDSUR 20:03 → OBSVTOIN 09-17 15:37
PROVIDERS: ADMIT Internal Medicine; ATTEND Internal Medicine
DX: T87.41 Infection of amputation stump, right upper extremity (principal); L02.511 Cutaneous abscess of right hand; L03.113 Cellulitis of right upper limb; R11.2 Nausea with vomiting, unspecified; K59.00 Constipation, unspecified; D63.8 Anemia in other chronic diseases classified elsewhere; F17.210 Nicotine dependence, cigarettes, uncomplicated; Z20.822 Contact with and (suspected) exposure to COVID-19; Y84.8 Other medical procedures as the cause of abnormal reaction of the patient, or of later complication, without mention of misadventure at the time of the procedure; Z79.899 Other long term (current) drug therapy; Z88.8 Allergy status to other drugs, medicaments and biological substances; Z87.19 Personal history of other diseases of the digestive system; Z86.14 Personal history of Methicillin resistant Staphylococcus aureus infection
CPT/HCPCS: 36415; 80048; 85025; 87635; 93005; 96365; 96375; 99285

== ENCOUNTER 2022-05-28 10:34 | Day surgery (SDC) | payer OTHER ==
--- NOTE | 2022-05-26 13:24 | P.HPOR ---
History of Present Illness H&P Date: 05/26/22 Chief Complaint: Right hand crush injury/chronic index finger pain/arthritis, Subjective: This is a 52 year old male that presents today for follow up evaluation regarding a crush injury to his right hand that occurred on 08/16/21 after his hand was crushed by an excavator in a contaminated and muddy environment at work. He is now over 8 months out from multiple surgeries at both [facility] and [facility]. He has been working with therapy and hitting a plateau in progress. His main complaint is constant stabbing pain and stiffness throughout the entire index finger originating at the MCP joint and traveling distal to the PIP joints. He notes the pain is worsening and the limited ROM at the index finger MCP and PIP joint have made digit non functional and a constant source of pain due to it being in the way when trying to do simple tasks like eating washing dishes and reaching for anything in his pockets. He has noticed the further ulnar drift of the joint has made pinch/grasp not possible between the index and thumb and states he has good pinch function between the thumb and small finger. 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 Danielle silva presents today for further discussion regarding the index finger. Physical Examination: RUE: AIN/PIN/Radial/Ulnar/Median motor intact. S/P right middle and ring finger amputation with Filet flap for soft tissue coverage of palmar defect. Index finger PIP ROM 30-60 with pain and ulnar deviation of digit at MCP joint, MCP ROM 40-60 with pain. Thumb IP ROM 10-30. MCP 5-45. FPL/EPL intact. Pain with index finger MCP motion with ulnar drift of joint. Tight first webspace contracture due to scar formation. Painful neuroma with positive tinels present under subcutaneous tissues at side of distal 4th digit amputation near MCP joint. Impression: 1.) Right hand crush injury s/p multiple hand I&Ds, middle and ring finger amputations. 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 We discussed possible intervention regarding IF MCP arthrodesis vs amputation at MCP level since he is having significant pain in that area and the current position with ulnar drift at the MCP joint is making prosthetic fit and pinch difficult. He states he finds the index finger getting in the way and he often bumps it and does not use it for pinch, he notices he uses the small finger and thumb for pinch and grasp which has been very functional for him. We discussed that arthrodesis would require immobilization anywhere from 4 to 8 weeks but would not likely address his PIP and distal finger pain. I expressed that arthrodesis would put the finger in a more functional position for grasp with attempt at giving him pain relief at the MCP joint and amputation could be performed at any time if arthrodesis was not functional. Currently he states he has thought long and hard and discussed the matter over with family who is present today and even with a fused index digit h shira believes it will just be in the way and that he would be better off without the finger at this point since it is not useful due to limited MCP, PIP and DIP range of motion and he is constantly bumping or jamming the index finger currently. He would rather use pinch between the thumb and small finger which is working well for him now. He wishes to proceed with index finger amputation. Risks and benefits of surgery including bleeding, infection, damage to surrounding tissue, need for further surgery, residual numbness and pain were discussed and the patient wished to go forward with surgery. He will be scheduled for first webspace deepening with Z-plasty, index finger amputation, and 4th digit neuroma excision in the near future. -Masoud Sharma DO Orthopedic Hand/Upper Extremity Surgeon Past Medical History Past Medical History: No Reported History Additional Past Medical History / Comment(s): CONSTIPATION. UMBILICAL HERNIA. History of Any Multi-Drug Resistant Organisms: MRSA Date of last positivie culture/infection: 08/14/20 MDRO Source:: MRSA BUTTOCK Past Surgical History: Orthopedic Surgery Additional Past Surgical History / Comment(s): FACIAL SURGERY D/T ACCIDENT. EXC WISDOM TEETH. right arm, lipoma, scope right knee, hernia repair Past Anesthesia/Blood Transfusion Reactions: No Reported Reaction Past Psychological History: No Psychological Hx Reported Smoking Status: Current every day smoker Past Alcohol Use History: Occasional Past Drug Use History: None Reported - Past Family History Mother Family Medical History: No Reported History Medications and Allergies Home Medications Medication Instructions Recorded Confirmed Type Gabapentin [Neurontin] 900 mg PO TID 09/13/21 09/14/21 History Ibuprofen [Motrin] 800 mg PO TID PRN 09/13/21 09/14/21 History Metoprolol Tartrate [Lopressor] 25 mg PO BID@1000,2200 09/13/21 09/14/21 History Sennosides/Docusate Sodium 1 tab PO HS 09/13/21 09/14/21 History [Senna-S 8.6-50 mg Tablet] methocarbamoL [Robaxin-750] 750 mg PO QID 09/13/21 09/14/21 History Bacitracin/Polymyx Oint 1 applic TOPICAL BID 09/14/21 09/14/21 History [Polysporin Oint] Ipratropium/Albuterol Sulfate 1 puff INHALATION RT-QID PRN 09/14/21 09/14/21 History [Combivent Respimat Inhaler] Magnesium Oxide [Mag-Ox] 400 mg PO BID 09/14/21 09/14/21 History Acetaminophen Tab [Tylenol] 650 mg PO Q6HR PRN tab 09/18/21 Rx Cefepime [Maxipime] 2 gm IVPB Q8H #84 each 09/18/21 Rx Enoxaparin [Lovenox] 40 mg SQ DAILY each 09/18/21 Rx HYDROcodone/APAP 5-325MG [Shirley 1 tab PO Q6HR PRN #6 tab 09/18/21 Rx 5-325] Ipratropium-Albuterol Nebulize 3 ml INHALATION RT-QID PRN ml 09/18/21 Rx [Duoneb 0.5 mg-3 mg/3 ml Soln] Pantoprazole [Protonix] 40 mg PO AC-BID tab 09/18/21 Rx metroNIDAZOLE [Flagyl] 500 mg PO TID #84 tab 09/18/21 Rx oxyCODONE HCL [oxyCODONE HCL (IR)] 15 mg PO Q4H PRN #6 tab 09/18/21 Rx Allergies Allergy/AdvReac Type Severity Reaction Status Date / Time cefepime [From Maxipime] AdvReac Abdominal Verified 09/14/21 17:05 Pain Physical Examination Osteopathic Statement: *. No significant issues noted on an osteopathic structural exam other than those noted in the History and Physical/Consult.
[~2022-05-28 10:34] MED LIST: DEXAMETHASONE SOD PHOSPHATE 4 MG/ML 1 ML VIAL IV ONE; LACTATED RINGERS 1,000 ML IV SCH; ONDANSETRON 4 MG/2 ML VIAL IVP ONE
[2022-05-28] MEDS ORDERED: LIDOCAINE 1% (10MG/ML) FOR IV START INTRADERMA ONE (10:57)
[2022-05-28] MEDS ORDERED: LIDOCAINE 2% INJ 20 MG/ML (2 ML VIAL) ONE (13:06)
[2022-05-28] MEDS ORDERED: HYDROmorphone (PF) 1 MG/ML ONE (13:06)
[2022-05-28] MEDS ORDERED: MIDAZOLAM 2 MG/2 ML VIAL ONE (13:06)
[2022-05-28] MEDS ORDERED: PROPOFOL 10 MG/ML 20 ML VIAL IV ONE (13:06)
[2022-05-28] MEDS ORDERED: fentaNYL (PF) 50 MCG/ML 2 ML AMP ONE (13:06)
[2022-05-28] MEDS ORDERED: BUPIVACAINE (PF) 0.5% 30 ML VIAL SQ ONE ×2 (14:24→14:30)
[2022-05-28 14:44] VITALS: TEMP 97
[2022-05-28] MEDS: HYDROmorphone 0.5 MG/0.5 ML SYRINGE IVP PRN ×3 (14:45→15:09)
[2022-05-28] MEDS ORDERED: LACTATED RINGERS 1,000 ML IV ONE ×2 (14:53)
[2022-05-28 15:48] VITALS: BP 126/80; PULSE 76; RESP 18
--- NOTE | 2022-05-28 22:13 | P.OP ---
Date of Procedure: 05/28/22 Preoperative Diagnosis: 1.) Right index finger crush injury, post traumatic arthritis MCP/PIP joint. 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 Procedure(s) Performed: 1.) Right index finger amputation, level of metacarpal neck, with neurectomy (22051) 2.) Right 4th ray digital neuroma excision (73448) 3.) Nerve implantation into bone (65459) Anesthesia: GETA Surgeon: Masoud Sharma Dot Etcher Apprentice #1: Bret Stokes Estimated Blood Loss (ml): 5 Pathology: none sent Condition: stable Disposition: PACU Description of Procedure: This is a 52 year old male who has history of a contaminated crush injury to the right hand 10 months prior which required multiple surgeries, I&D's for infection and ring and middle finger amputations and several other procedures on the index finger including MCP RCL ligament repair. He has gone on to severe post traumatic arthritis in the MCP and PIP joints resulting in chronic pain and presents today for right index finger amputation as well as 4th ray digital neuroma excision after having failed conservative treatment. All possible surgical options were discussed with patient including observation, arthrodesis and amputation and after several months of consideration a combined decision between myself, the patient, the patients family, and the guitar maker have agreed to proceed with amputation due to the finger being non-functional and a source of severe chronic pain. Risks and benefits of surgery were discussed with the patient including bleeding, damage to surrounding tissue, infection, neuroma recurrence, need for further surgery as well as risks of anesthesia including pulmonary embolism and even and the patient wished to proceed with surgical intervention. The patient was seen in the pre-operative area by myself. Consent and H&P were completed and updated. The correct extremity was marked in the pre-operative area by myself and all other questions were answered. Operative Narrative: The patient was brought to the operating room by the department of anesthesia. They remained on the portable stretcher and a rolling hand table was brought to the side of the operative extremity. Pre-operative time out was performed indicating the correct patient, procedure and laterality. All in the room agreed. Pre-operative antibiotics were given prior to skin incision. The patient was then drifted off to sleep by the department of anesthesia. A nonsterile tourniquet was then applied to the operative extremity and the right upper extremity was then prepped and draped in normal sterile fashion. The operative extremity was the exsanguinated with an esmarch bandage and the tourniquet was inflated to 250mmHg. 15 blade scalpel was utilized to make a longitudinal incision over the distal aspect of the index metacarpal which was extended distally in a divergent curvilinear and eventually convergent incision volarly in preparation of skin coverage after amputation. Sharp dissection was taken through dorsal subcutaneous tissue with meticulous hemostasis being performed with bovie cautery. The extensor tendon was the sharply cut leaving adequate length for eventual coverage of bethany stump. The collateral ligaments around the MCP joint were then incised and previous suture anchor of RCL ligament repair was removed. Dissection was then carried volarly and blunt dissection was performed and the ulnar neurovascular bundle was identified, there was no radial neurovascular bundle present due to previous injury. 5-0 nylon suture was then utilized to tie of the digital artery of the index finger and then bovie cautery was utilized to excise the distal portion of the artery. The digital nerve was then identified and sharply cut with 15 blade scalpel then buried into deep subfascial tissues in the palm. The index flexor tendons were then identified and cut sharply under tension and allowed to retract. The MCP joint was then visualized and was severely arthritic with no cartilage left at the joint. The finger was the disarticulated at the MCP joint. Due to prominence of the metacarpal head, rongeur was then used to excise the metacarpal head and to contour a smooth and less prominent distal end. 4-0 Monocryl suture was then used to flap the extensor tendon over the distal stump and attach it to the remnants of the volar plate and subcutaneous tissues. The wound was the irrigated and skin closure was performed with 4-0 nylon suture in a tension free matter. After amputation the previous space of tightness in the first web was no longer contracted therefore decision to not proceed with first webspace z-plasty was made. Attention was then brought to the painful neuroma of the 4th ray which was identified in the pre-op area. Longitudinal incision was made over the bump and subcutaneous dissection was performed to reveal a large neuroma involving the distal end of the digital nerve at the site of the previous ring finger amputation. Proximal dissection of the digital nerve was performed to normal appearing neural tissue. The neuroma was then sharply incised with 15 blade scalpel. The distal end of the nerve was then implanted into the ring finger metacarpal bone by attaching the distal epineural tissue into periosteum with 5- 0 nylon suture. The wound was then irrigated and closed with 4-0 nylon suture. Digital nerve blocks were performed with 0.5% bupivicaine, 14cc's total. A sterile dressing consisting of adaptic, 4x4s, webril and zack wrap was applied. Tourniquet was let down and thumb and small digits had immediate perfusion. The patient was then woken by the department of anesthesia and transferred to PACU in stable condition. Masoud Sharma D.O. Orthopedic Hand/Upper Extremity Surgeon
== END 2022-05-28 16:24 | disposition home or self-care (01) ==
LOC: OR 10:34
PROVIDERS: ATTEND Orthopaedic Surgery Hand Surgery
DX: T87.31 Neuroma of amputation stump, right upper extremity (principal); S67.190D Crushing injury of right index finger, subsequent encounter; M19.141 Post-traumatic osteoarthritis, right hand; G89.29 Other chronic pain; Z89.021 Acquired absence of right finger(s); J44.9 Chronic obstructive pulmonary disease, unspecified; Z86.14 Personal history of Methicillin resistant Staphylococcus aureus infection; F17.200 Nicotine dependence, unspecified, uncomplicated; Z79.899 Other long term (current) drug therapy; Z79.01 Long term (current) use of anticoagulants; Z88.1 Allergy status to other antibiotic agents; W31.89XD Contact with other specified machinery, subsequent encounter
CPT/HCPCS: 93005; 26951; 64776; 64787; J2250; J1100; J0690; J2405; J3010; J1170 ×2; J2704; J2001